=== PATIENT | female | born 1965 | race Caucasian/White ===

== ENCOUNTER 2020-02-05 16:20 | Outpatient (REF) | payer OTHER, SELFPAY | END 2020-02-05 16:21 | disposition home or self-care (01) | LOC: HO.LNP 16:20 | PROVIDERS: Visit Provider Family Medicine | DX: Z20.828 Contact with and (suspected) exposure to other viral communicable diseases (principal) | CPT/HCPCS: U0003 ==

== ENCOUNTER → 2020-02-10 15:35 | Outpatient (BNVA) | payer OTHER, SELFPAY | PROVIDERS: PCP Family Medicine; Referring Provider Family Medicine; Visit Provider Internal Medicine | DX: Z76.89 Persons encountering health services in other specified circumstances (principal) ==

== ENCOUNTER → 2020-03-14 15:10 | Outpatient (BNVA) | payer OTHER, SELFPAY | PROVIDERS: PCP Family Medicine; Visit Provider Internal Medicine Cardiovascular Disease | DX: Z82.49 Family history of ischemic heart disease and other diseases of the circulatory system (principal) | CPT/HCPCS: 93005 ==

== ENCOUNTER 2020-04-11 | Outpatient (REF) | payer OTHER, SELFPAY | END 2020-04-11 00:01 | disposition home or self-care (01) | LOC: HO.WFDLNP | PROVIDERS: Visit Provider Family Medicine | DX: Z13.89 Encounter for screening for other disorder (principal) ==

== ENCOUNTER 2020-04-12 15:31 | Outpatient (REF) | payer OTHER, SELFPAY | END 2020-04-12 15:32 | disposition home or self-care (01) | LOC: HO.LNP 15:31 | PROVIDERS: Visit Provider Family Medicine | DX: R30.0 Dysuria (principal); Z20.822 Contact with and (suspected) exposure to COVID-19 | CPT/HCPCS: 87086 ==

== ENCOUNTER 2020-05-04 | Outpatient (REF) | payer OTHER, SELFPAY | END 2020-05-04 00:01 | disposition home or self-care (01) | LOC: HO.LNP | PROVIDERS: Visit Provider Family Medicine | DX: L02.214 Cutaneous abscess of groin (principal) | CPT/HCPCS: 87071; 87205 ==

== ENCOUNTER → 2020-05-25 16:04 | Outpatient (BNVA) | payer OTHER, SELFPAY | PROVIDERS: PCP Family Medicine; Visit Provider Surgery ==

== ENCOUNTER 2020-06-21 09:39 | Outpatient (REF) | payer OTHER, SELFPAY ==
[2020-06-21 10:40] LABS: MANUAL DIFF FLAG NO
[2020-06-21 10:44] LABS: Basophils Percent Auto 0.5 % (0-2); Eosinophils Percent Auto 0.4 % (0-4); Hematocrit 40.6 % (37-47); Hemoglobin 12.7 g/dl (12.0-16.0); Imm Gran Abs Auto 0.03 X10*3/uL (0.00-0.03); Imm Gran Pct Auto 0.4 % (0.0-0.4); Lymphocytes Absolute Auto 2.2 X10*3/uL (1.2-4.9); Mean Corpuscular HGB Conc 31.3 g/dl (31.0-35.0); Mean Corpuscular Hemoglobin 28.7 pg (27.0-33.0); Mean Corpuscular Volume 91.6 fL (80-98); Monocytes Absolute Auto 0.6 X10*3/uL (0.1-1.2); Monocytes Percent Auto 7.7 % (2-11); Neutrophils Absolute Auto 4.9 X10*3/uL (2.0-8.3); Platelet Count 286 X10*3/uL (160-400); Red Blood Count 4.43 X10*6/uL (4.20-5.50); Red Cell Distribution Width 13.6 % (11.0-16.0); White Blood Count 7.8 X10*3/uL (4.8-10.8)
[2020-06-21 12:43] LABS: Alanine Aminotransferase 22 U/L (0-31); Alkaline Phosphatase 118 U/L (39-117); Anion Gap 13 (12-20); Aspartate Amino Transferase 22 U/L (5-31); Bilirubin Total 0.8 mg/dL (0.0-1.0); Blood Urea Nitrogen 14 mg/dL (9-16); Calcium 8.7 mg/dL (8.4-10.2); Carbon Dioxide 29 mmol/L (22-29); Chloride 105 mmol/L (96-108); Cholesterol 183 mg/dL; Estimated Glomerular Filt Rate > 60; Glucose Fasting 106 mg/dL (60-99); HDL Cholesterol 40 mg/dL; LDL Cholesterol Calculated 123 mg/dl; Potassium 4.6 mmol/L (3.3-5.1); Sodium 142 mmol/L (135-145); Total Protein 6.4 g/dL (6.5-8.0); Triglycerides 100 mg/dL
[2020-06-21 12:44] LABS: TSH reflex Free T4 2.35 uIU/mL (0.32-4.0)
== END 2020-06-21 09:40 | disposition home or self-care (01) ==
LOC: HO.WFDLDS 09:39
PROVIDERS: Visit Provider Family Medicine
DX: Z00.00 Encounter for general adult medical examination without abnormal findings (principal)
CPT/HCPCS: 36415; 80053; 80061; 84443; 85025

== ENCOUNTER → 2020-08-01 15:55 | Outpatient (BNVA) | payer OTHER, SELFPAY | PROVIDERS: PCP Family Medicine; Visit Provider Internal Medicine ==

== ENCOUNTER 2020-12-07 10:52 | Outpatient (REF) | payer OTHER, SELFPAY ==
[2020-12-07 13:43] LABS: Basophils Percent Auto 0.1 % (0-2); Hematocrit 41.5 % (37-47); Hemoglobin 13.3 g/dl (12.0-16.0); Imm Gran Abs Auto 0.05 X10*3/uL (0.00-0.03); Imm Gran Pct Auto 0.6 % (0.0-0.4); Lymphocytes Absolute Auto 0.6 X10*3/uL (1.2-4.9); Lymphocytes Percent Auto 6.8 % (20-40); MANUAL DIFF FLAG SCAN; Mean Corpuscular Hemoglobin 29.3 pg (27.0-33.0); Mean Corpuscular Volume 91.4 fL (80-98); Mean Platelet Volume 11.9 fL (9.4-12.3); Monocytes Absolute Auto 0.1 X10*3/uL (0.1-1.2); Monocytes Percent Auto 1.2 % (2-11); Neutrophils Absolute Auto 7.6 X10*3/uL (2.0-8.3); Neutrophils Percent Auto 91.3 % (45-73); Platelet Count 288 X10*3/uL (160-400); Red Blood Count 4.54 X10*6/uL (4.20-5.50); Red Cell Distribution Width 13.3 % (11.0-16.0); SCAN SMEAR FLAG 1; White Blood Count 8.3 X10*3/uL (4.8-10.8)
[2020-12-07 13:52] LABS: Estimated Average Glucose 108 mg/dL; Hemoglobin A1c % 5.4 %
[2020-12-07 14:09] LABS: SLIDE REVIEW VERIFIED
[2020-12-07 14:13] LABS: Glucose Fasting 131 mg/dL (60-99)
== END 2020-12-07 10:53 | disposition home or self-care (01) ==
LOC: HO.10HDL 10:52
PROVIDERS: Visit Provider Otolaryngology
DX: L50.9 Urticaria, unspecified (principal); E16.2 Hypoglycemia, unspecified
CPT/HCPCS: 36415; 82947; 83036; 85025

== ENCOUNTER 2021-01-04 10:02 | Outpatient (REF) | payer OTHER, SELFPAY ==
[2021-01-04 14:46] LABS: Estimated Average Glucose 108 mg/dL; Hemoglobin A1c % 5.4 %
[2021-01-04 14:53] LABS: Alanine Aminotransferase 19 U/L (0-31); Albumin Level 4.1 g/dL (3.5-5.0); Alkaline Phosphatase 92 U/L (39-117); Anion Gap 14 (12-20); Aspartate Amino Transferase 13 U/L (5-31); Bilirubin Total 0.7 mg/dL (0.0-1.0); Blood Urea Nitrogen 21 mg/dL (9-16); Calcium 9.1 mg/dL (8.4-10.2); Carbon Dioxide 28 mmol/L (22-29); Chloride 107 mmol/L (96-108); Estimated Glomerular Filt Rate 47; Glucose Fasting 100 mg/dL (60-99); Potassium 4.4 mmol/L (3.3-5.1); Sodium 145 mmol/L (135-145); Total Protein 6.4 g/dL (6.5-8.0)
== END 2021-01-04 10:03 | disposition home or self-care (01) ==
LOC: HO.WFDLDS 10:02
PROVIDERS: Visit Provider Family Medicine
DX: Z00.00 Encounter for general adult medical examination without abnormal findings (principal); R73.01 Impaired fasting glucose; R07.89 Other chest pain; M54.9 Dorsalgia, unspecified; E66.01 Morbid (severe) obesity due to excess calories
CPT/HCPCS: 36415; 80053; 83036

== ENCOUNTER 2021-01-09 08:34 | Outpatient (REF) | payer OTHER, SELFPAY ==
--- NOTE | ~2021-01-09 | MM_ITS ---
EXAMINATION: MM SCREENING DIGITAL BREAST TOMOSYNTHESIS, BILATERAL CLINICAL INFORMATION: Screening. Asymptomatic. The lifetime risk of breast cancer based on the Tyrer-Cuzick Model is 19%. COMPARISON: Outside mammography: 01/08/2020, 12/25/2017 ([facility]). TECHNIQUE: Digital breast tomosynthesis is performed in both the craniocaudal and mediolateral oblique views along with computer-aided detection (CAD). Synthesized 2D images are generated from the tomosynthesis. FINDINGS: The breasts are almost entirely fatty (ACR BI-RADS breast composition Category a). There are no significant masses, abnormal calcifications, or other abnormalities. Stromal markings are similar to prior study. No developing density. There is no interval mass or architectural abnormality. No abnormal calcifications. The axilla and skin contours are unremarkable. Low left axillary tail node on MLO view is stable. No significant changes. MM/MM tomosynthesis screening BI IMPRESSION: No mammographic evidence of malignancy. ASSESSMENT: BI-RADS 2: Benign RECOMMENDATION: Routine annual mammography screening. This patient's information was entered into a reminder system with a target due date for their next mammogram.
== END 2021-01-09 08:35 | disposition home or self-care (01) ==
LOC: HO.MAMMO 08:34
PROVIDERS: PCP Family Medicine; Visit Provider Family Medicine
DX: Z12.31 Encounter for screening mammogram for malignant neoplasm of breast (principal)
CPT/HCPCS: 77063; 77067

== ENCOUNTER → 2021-01-20 11:00 | Outpatient (REF) | payer OTHER, SELFPAY ==
--- NOTE | 2021-01-20 11:04 | CA_ITS ---
Acquisition Time: 2021-01-20 11:23:57 Total Exercise Time: 00:02:14 Test Indications: CP Medications: SEE CHART Protocol: ARCENIO Max HR: 171 BPM 104% of Pred: 164 BPM Max BP: 168/082 mmHG Max Work Load: 4.6 METS Exercise stress test with exercise 2 min 14 sec of Arcenio protocol, with moderate shortness of breath, no chest discomfort, with isolated PACs, atrial cuplets, 2-4 beat atrial runs, with normotensive response to exercise, without EKG changes meeting criteria for ischemia at achieved workload. Exercise goal was 5 min which she was unable to acheive. Echo images obtained by tech at rest and immediately post peak exercise. Definity contrast used. Test reviewed with Dr Painter. Referred By: Sandor Llamas Overread By: NIKITA NUÑEZ
== END ==
LOC: HO.CARD 11:00
PROVIDERS: Visit Provider Family Medicine
DX: R07.89 Other chest pain (principal)
CPT/HCPCS: 93350; Q9957

== ENCOUNTER 2021-01-27 11:26 | Outpatient (REF) | payer OTHER, SELFPAY ==
[2021-01-27 13:55] LABS: MANUAL DIFF FLAG NO
[2021-01-27 13:59] LABS: Basophils Percent Auto 0.1 % (0-2); Eosinophils Absolute Auto 0.1 X10*3/uL (0.0-0.4); Eosinophils Percent Auto 0.5 % (0-4); Hematocrit 40.2 % (37-47); Hemoglobin 12.8 g/dl (12.0-16.0); Imm Gran Abs Auto 0.03 X10*3/uL (0.00-0.03); Imm Gran Pct Auto 0.3 % (0.0-0.4); Lymphocytes Absolute Auto 1.6 X10*3/uL (1.2-4.9); Lymphocytes Percent Auto 16.8 % (20-40); Mean Corpuscular HGB Conc 31.8 g/dl (31.0-35.0); Mean Corpuscular Hemoglobin 29.1 pg (27.0-33.0); Mean Corpuscular Volume 91.4 fL (80-98); Mean Platelet Volume 11.6 fL (9.4-12.3); Monocytes Absolute Auto 0.6 X10*3/uL (0.1-1.2); Monocytes Percent Auto 5.9 % (2-11); Neutrophils Absolute Auto 7.2 X10*3/uL (2.0-8.3); Neutrophils Percent Auto 76.4 % (45-73); Platelet Count 283 X10*3/uL (160-400); Red Cell Distribution Width 13.6 % (11.0-16.0); White Blood Count 9.4 X10*3/uL (4.8-10.8)
[2021-01-27 15:04] LABS: Erythrocyte Sedimentation Rate 17 MM/HR (0-20)
[2021-01-28 13:32] LABS: CRP High Sensitivity >10.0 mg/L
[2021-01-30 15:26] LABS: Anti Nuclear Antibody Pattern Nuclear, Homogeneous; Anti Nuclear Antibody Screen POSITIVE (NEGATIVE); Anti Nuclear Antibody Titer 1:40 titer
== END 2021-01-27 11:27 | disposition home or self-care (01) ==
LOC: HO.WFDLDS 11:26
PROVIDERS: Visit Provider Family Medicine
DX: Z00.00 Encounter for general adult medical examination without abnormal findings (principal); L50.9 Urticaria, unspecified
CPT/HCPCS: 36415; 85025; 85652; 86038; 86039; 86141

== ENCOUNTER → 2021-03-09 15:02 | Outpatient (REF) | payer OTHER, SELFPAY ==
--- NOTE | 2021-03-09 15:05 | CA_ITS ---
Transthoracic Echocardiogram Patient (Last, First, Middle): Ellen Zhu E Gender: Female Date of : 1965 Age: 56 Procedure Date: 03/09/2021 Procedure Type: Transthoracic Echocardiogram Location: OP Height: 170.18 cm Weight: 158.31 kg BSA: 2.56 m2 Heart Rate: bpm BP: 127 / 70 mmHg Chief Of Pediatric Urology: VINCENT Referring MD: Obed De La Cruz MD Symptoms: I25.3 - Aneurysm of heart Study Quality: Fair/Contrast Conclusions: - Normal left ventricular size and systolic function. Apical diverticulum and small aneurysm noted. Findings Procedure Information Contrast agent, definity, is being given per protocol without apparent complications. Left Ventricle Normal left ventricular size and systolic function. There is mildly increased left ventricular wall thickness. The visually estimated ejection fraction is between 55-60%. Diastolic function is normal for age. Right Ventricle Normal right ventricular cavity size and systolic function. Atria The left atrium is normal in size. Aortic Valve Normal aortic valve structure and function. There is mild aortic valve stenosis. There is trace (trivial) aortic valve regurgitation. Mitral Valve Normal mitral valve structure and function. There is no mitral valve regurgitation. There is no mitral valve stenosis. Pulmonic Valve The pulmonic valve is likely normal. Tricuspid Valve Normal tricuspid valve structure. There is no tricuspid valve regurgitation. Normal right atrial pressure. There is no evidence of pulmonary hypertension. Great Vessels All visible segments of the aorta are normal in size. The visualized portions of the pulmonary artery and branches are normal. Venous The inferior vena cava is normal in size and collapses greater than 50% with inspiration. Pericardium/Pleural There is no evidence of pericardial effusion. Prior Study Comparison No prior study available for comparison. Measurements 2D Linear Measurements IVSd: 1.29 0.6-0.9/0.6-1.0 cm LVIDd: 4.39 3.9-5.3/4.2-5.9 cm LVIDd Index: 1.71 2.4-3.2/2.2-3.1 cm/m2 LVIDs: 3.27 2.0-3.6 cm LVPWd: 1.07 0.7-1.1 cm Ao Root: 2.90 2.1-3.5 cm LA Diam: 3.80 2.7-3.8/3.0-4.0 cm LAIDs Index: 1.48 1.5-2.3 cm/m2 LV Mass: 231.86 67-162/88-224 g LV Mass Index: 90.57 43-95/49-115 g/m2 LVOT Diam: 2.00 3.0+(-)1.3 cm 2D Systolic Function EF 4C: 58.60 >55% EF 2C: 52.00 >55% EF BiP: 56.20 >55% Mitral Valve MV Pk E: 1.33 MV PK A: 1.24 MV Decel Time: 163.00 E/A: 1.10 E'Lateral: 9.03 E'Medial: 9.68 E/E' Med: 13.70 E/E' Lat: 14.70 PHT: 48.00 MVA PHT: 4.58 Decel [place]: 8.15 Aortic Valve AoV Pk [place]: 2.21 AoV Mn [place]: 1.56 AoV VTI: 0.47 AoV Pk Grad: 20.00 Aov Mn Grad: 11.00 PRIYA Cont.VTI: 1.88 AI Pk [place]: 3.53 AI [place]: 1.63 LVOT LVOT Pk [place]: 1.13 LVOT Mn [place]: 0.84 LVOT VTI: 0.28 LVOT Pk Grad: 5.00 LVOT Mn Grad: 3.00 LVOT Diam: 2.00 LVOT Area: 3.14 Diastolic Function MV Pk E: 1.33 MV Pk A: 1.24 E/A: 1.10 E'Medial: 9.68 E/E' Med: 13.70 E' Laterial: 9.03 E/E' Lat: 14.70 Right Ventricle TAPSE (mm): 2.43 TVS' [place]: 11.60 Tricuspid Valve TR Pk [place]: 2.09 TR Pk Grad: 17.00 RA Press: 3.00 RVSP: 20.00 Great Vessels Aorta Ao Root-2D: 2.90 2.0-3.7 cm Ao Asc: 2.70 2.1-3.4 cm Ao Arch: 2.30 Updated in Other Vendor System with Status of Final Obed De La Cruz MD electronically signed on 03/12/2021 4:15:51 PM with status of Final
== END ==
LOC: HO.CARD 15:02
PROVIDERS: PCP Family Medicine; Visit Provider Internal Medicine Cardiovascular Disease
DX: I25.3 Aneurysm of heart (principal)
CPT/HCPCS: 93306; Q9957

== ENCOUNTER → 2021-03-15 15:12 | Outpatient (BNVA) | payer OTHER, SELFPAY | PROVIDERS: PCP Family Medicine; Referring Provider Family Medicine; Visit Provider Internal Medicine Cardiovascular Disease ==

== ENCOUNTER 2021-10-04 08:00 | Outpatient (RCR) | payer OTHER, SELFPAY | END 2021-10-19 15:18 | disposition home or self-care (01) | LOC: HO.PTWFD 08:00 | PROVIDERS: PCP Family Medicine; Visit Provider Family Medicine | DX: M54.9 Dorsalgia, unspecified (principal) | CPT/HCPCS: 97110; 97140; 97162; 97535 ==

== ENCOUNTER 2022-02-27 08:32 | Outpatient (REF) | payer OTHER, SELFPAY ==
--- NOTE | ~2022-02-27 | MM_ITS ---
EXAMINATION: MM SCREENING DIGITAL BREAST TOMOSYNTHESIS, BILATERAL CLINICAL INFORMATION: Screening. Asymptomatic. The lifetime risk of breast cancer based on the Tyrer-Cuzick Model is 21%. COMPARISON: Mammography: 01/09/2021, 01/08/2020, 12/25/2017 TECHNIQUE: Digital breast tomosynthesis is performed in both the craniocaudal and mediolateral oblique views along with computer-aided detection (CAD). Synthesized 2D images are generated from the tomosynthesis. FINDINGS: The breasts are almost entirely fatty (ACR BI-RADS breast composition Category a). Background stromal markings are similar to prior studies and there is no architectural abnormality or developing density. There are no significant masses, abnormal calcifications, or other abnormalities. The axilla and skin contours are unremarkable. MM/MM tomosynthesis screening BI IMPRESSION: No mammographic evidence of malignancy. ASSESSMENT: BI-RADS 1: Negative RECOMMENDATION: Routine annual mammography screening. This patient's information was entered into a reminder system with a target due date for their next mammogram.
== END 2022-02-27 08:33 | disposition home or self-care (01) ==
LOC: HO.MAMMO 08:32
PROVIDERS: Absent Provider Student in an Organized Health Care Education/Training Program; PCP Family Medicine; Visit Provider Family Medicine
DX: Z12.31 Encounter for screening mammogram for malignant neoplasm of breast (principal)
CPT/HCPCS: 77063; 77067

== ENCOUNTER → 2022-03-12 11:21 | Outpatient (BNVA) | payer OTHER, SELFPAY | PROVIDERS: PCP Family Medicine; Referring Provider Family Medicine; Visit Provider Internal Medicine Cardiovascular Disease | DX: I25.3 Aneurysm of heart (principal); R06.09 Other forms of dyspnea; Q42.8 Congenital absence, atresia and stenosis of other parts of large intestine | CPT/HCPCS: 93005 ==

== ENCOUNTER → 2022-03-16 13:14 | Outpatient (REF) | payer OTHER, SELFPAY ==
--- NOTE | ~2022-03-16 | XR_ITS ---
EXAMINATION: XR KNEE, LEFT XR KNEE, RIGHT CLINICAL INFORMATION: Knee pain COMPARISON: None TECHNIQUE: 4 views of each knee, including AP upright view. FINDINGS: Left knee: No fracture or subluxation. Mild medial compartment joint space narrowing. Tricompartmental marginal osteophytes. No joint effusion. Diffuse soft tissue swelling. Right knee: No acute fracture or subluxation. Mild medial compartment joint space narrowing. Tricompartmental marginal osteophytes. No joint effusion. Mild diffuse soft tissue swelling. XR/XR knee LT 4V IMPRESSION: No acute fracture or malalignment. Mild tricompartmental degenerative changes of both knees.
--- NOTE | ~2022-03-16 | XR_ITS ---
EXAMINATION: XR KNEE, LEFT XR KNEE, RIGHT CLINICAL INFORMATION: Knee pain COMPARISON: None TECHNIQUE: 4 views of each knee, including AP upright view. FINDINGS: Left knee: No fracture or subluxation. Mild medial compartment joint space narrowing. Tricompartmental marginal osteophytes. No joint effusion. Diffuse soft tissue swelling. Right knee: No acute fracture or subluxation. Mild medial compartment joint space narrowing. Tricompartmental marginal osteophytes. No joint effusion. Mild diffuse soft tissue swelling. XR/XR knee RT 4V IMPRESSION: No acute fracture or malalignment. Mild tricompartmental degenerative changes of both knees.
--- NOTE | 2022-03-16 13:16 | CA_ITS ---
Transthoracic Echocardiogram Patient (Last, First, Middle): Ellen Zhu E Gender: Female Date of : 1965 Age: 57 Procedure Date: 03/16/2022 Procedure Type: Transthoracic Echocardiogram Location: OP Height: 170.18 cm Weight: 163.75 kg BSA: 2.60 m2 Heart Rate: bpm BP: 124 / 80 mmHg Board Catcher: Referring MD: Obed De La Cruz MD Symptoms: I25.3 - Aneurysm of heart Study Quality: Fair ECG Rhythm: Sinus Conclusions: - The left ventricular systolic function is low normal. The calculated ejection fraction is 53% by biplane method. - Small outpouching at the apex/apical septum with some contractility; possibly diverticulum. Less likely aneurysm. - There is mild aortic valve stenosis. - Consider cMRI. Findings Procedure Information Contrast agent, definity, is being given per protocol without apparent complications. Left Ventricle Normal left ventricular cavity size. There is mildly increased left ventricular wall thickness. The left ventricular systolic function is low normal. The calculated ejection fraction is 53% by biplane method. Diastolic function is normal for age. Small outpouching at the apex/apical septum with some contractility; possibly diverticulum. Less likely aneurysm. Right Ventricle Normal right ventricular cavity size and systolic function. Atria Both atria are normal in size. Aortic Valve The aortic valve was not well visualized. There is mild aortic valve stenosis. There is trace (trivial) aortic valve regurgitation. Mitral Valve The mitral valve appears normal. There is no mitral valve regurgitation. There is no mitral valve stenosis. Pulmonic Valve The pulmonic valve is likely normal. Tricuspid Valve There is trace tricuspid valve regurgitation. There is no evidence of pulmonary hypertension. Great Vessels The aortic annulus, sinuses of valsalva, and asc aorta are normal in size. Venous The inferior vena cava is normal in size and collapses greater than 50% with inspiration. Prior Study Comparison Changes noted compared to prior study dated: 03/09/2021. Mild aortic stenosis noted. Measurements 2D Linear Measurements IVSd: 1.26 0.6-0.9/0.6-1.0 cm LVIDd: 4.43 3.9-5.3/4.2-5.9 cm LVIDd Index: 1.70 2.4-3.2/2.2-3.1 cm/m2 LVIDs: 2.78 2.0-3.6 cm LVPWd: 1.22 0.7-1.1 cm Ao Root: 2.60 2.1-3.5 cm LA Diam: 3.80 2.7-3.8/3.0-4.0 cm LAIDs Index: 1.46 1.5-2.3 cm/m2 LV Mass: 252.72 67-162/88-224 g LV Mass Index: 97.20 43-95/49-115 g/m2 LVOT Diam: 2.00 3.0+(-)1.3 cm 2D Systolic Function EF 4C: 54.80 >55% EF 2C: 53.20 >55% EF BiP: 52.60 >55% Mitral Valve MV Pk E: 1.44 MV Decel Time: 183.00 E'Lateral: 14.60 E'Medial: 14.50 E/E' Med: 9.90 E/E' Lat: 9.90 PHT: 54.00 MVA PHT: 4.07 Decel [place]: 7.85 Aortic Valve AoV Pk [place]: 2.18 AoV Mn [place]: 1.52 AoV VTI: 0.45 AoV Pk Grad: 19.00 Aov Mn Grad: 11.00 PRIYA Cont.VTI: 1.33 LVOT LVOT Pk [place]: 0.88 LVOT Mn [place]: 0.61 LVOT VTI: 0.19 LVOT Pk Grad: 3.00 LVOT Mn Grad: 2.00 LVOT Diam: 2.00 LVOT Area: 3.14 Diastolic Function MV Pk E: 1.44 E'Medial: 14.50 E/E' Med: 9.90 E' Laterial: 14.60 E/E' Lat: 9.90 Right Ventricle TAPSE (mm): 29.00 Tricuspid Valve TR Pk [place]: 2.26 TR Pk Grad: 20.00 RA Press: 3.00 RVSP: 23.00 Great Vessels Aorta Ao Root-2D: 2.60 2.0-3.7 cm Ao Asc: 3.00 2.1-3.4 cm Pulmonary Valve PV Pk [place]: 1.10 Peak PV Grad: 5.00 Updated in Other Vendor System with Status of Final Poli Painter MD electronically signed on 03/18/2022 11:07:21 AM with status of Final
== END ==
LOC: HO.CARD 13:14
PROVIDERS: PCP Family Medicine; Visit Provider Internal Medicine Cardiovascular Disease
DX: I25.3 Aneurysm of heart (principal)
CPT/HCPCS: 73564; 93306; Q9957

== ENCOUNTER → 2022-03-29 08:00 | Outpatient (REF) | payer OTHER, SELFPAY ==
--- NOTE | ~2022-03-29 | NM_ITS ---
Exercise Myocardial perfusion study Indication: Shortness of breath evaluate for myocardial ischemia Technique: The patient was brought in for an exercise perfusion study on 03/29/2022. Patient performed exercise as per Wilner protocol and was injected 45 mCi of sestamibi was given intravenously one target HR was achieved. Images were obtained using the SPECT gamma camera interlaced with the gating device. Images were obtained in supine position. Resting perfusion study was performed on 03/30/2022. Patient was administered 45 mCi of sestamibi intravenously at rest. Images were then obtained in supine position. Images obtained with and without CT attenuation. Total DLP 162 mGy-cm. Images were processed with the software and compared side to side in short axis, horizontal long axis and vertical long axis views. Findings: The stress perfusion study showed non attenuated images show minimally reduced uptake diffuse thinning of the anterior wall as well as reduced uptake in the basal inferior wall of the LV myocardium. Attenuation corrected images show normal uptake of radiotracer in all segments of LV myocardium. The gated study shows normal LV systolic function with calculated LVEF of 56%. LV cavity is normal in size. The gated study shows normal systolic wall thickening and contraction of all segments. There is no transient ischemic dilation. Resting study shows suboptimal imaging due to subdiaphragmatic uptake. Non attenuated images show no changes compared to stress perfusion study. Gating at rest reveals normal systolic wall motion with ejection fraction at 56%. The findings are consistent with normal myocardial perfusion. NM/NM cardiolite stress test Impression: 1. Normal myocardial perfusion 2. Gated LVEF is 56% 3. Transient ischemic dilatation not present Stress EKG is negative for ischemia
--- NOTE | 2022-03-29 08:04 | CA_ITS ---
Acquisition Time: 2022-03-29 08:13:19 Total Exercise Time: 00:05:00 Test Indications: abn ekg Medications: see chart Protocol: MOD ARCENIO Max HR: 160 BPM 98% of Pred: 162 BPM Max BP: 148/068 mmHG Max Work Load: 3.4 METS Exercise stress test with exercise 5 min of modified Arcenio protocol, achieving 97% MPHR, 3.4 METs, with moderate shortness of breath, no chest discomfort, with isolated PAC and PVC, atrial tachycardia not excluded ( vs sinus tach), with normotensive response to exercise, without EKG changes meeting criteira for ischemia. Nuclear images pending. Test reviewed with Dr Young Referred By: Obed De La Cruz Overread By: NIKITA NUÑEZ
== END ==
LOC: HO.CARD 08:00
PROVIDERS: PCP Family Medicine; Visit Provider Internal Medicine Cardiovascular Disease
DX: R06.09 Other forms of dyspnea (principal)
CPT/HCPCS: 78452; 93017; A9500; J0280; J2785

== ENCOUNTER 2022-04-11 11:01 | Outpatient (REF) | payer OTHER, SELFPAY ==
--- NOTE | ~2022-04-11 | XR_ITS ---
EXAMINATION: XR KNEE AP STANDING CLINICAL INFORMATION: Pain in the right knee. COMPARISON: 03/16/2022. TECHNIQUE: AP bilateral standing view of the knees was obtained. FINDINGS: Mild medial compartment osteoarthritis is evident in both knees, left greater than right, characterized by joint space narrowing and marginal osteophytes. No acute fracture or malalignment. Mild soft tissue swelling. Bone mineralization is normal. XR/XR knee standing BI IMPRESSION: Mild medial compartment osteoarthritis in both knees, left greater than right.
== END 2022-04-11 11:02 | disposition home or self-care (01) ==
LOC: HO.HOSX 11:01
PROVIDERS: Visit Provider Physician Assistant
DX: M17.0 Bilateral primary osteoarthritis of knee (principal)
CPT/HCPCS: 73565

== ENCOUNTER → 2022-04-12 07:43 | Outpatient (REF) | payer OTHER, SELFPAY ==
--- NOTE | 2022-04-12 07:49 | HM_ITS ---
* Total monitoring time 3 days. * Underlying rhythm is sinus. Average ventricular rate 98/Min. Range 75 to 134/Min. * Frequent supraventricular ectopy. [place] of 6%. Short runs noted. * Rare ventricular ectopy. * No significant pauses or AV blocks. * No patient marker or diary. MTDD
== END ==
LOC: HO.CARD 07:43
PROVIDERS: PCP Family Medicine; Visit Provider Nurse Practitioner Family
DX: R00.0 Tachycardia, unspecified (principal)
CPT/HCPCS: 93242

== ENCOUNTER 2022-04-16 08:49 | Outpatient (REF) | payer OTHER, SELFPAY ==
--- NOTE | ~2022-04-16 | US_ITS ---
EXAMINATION: US LOWER EXTREMITY VENOUS (REFLUX EXAM), BILATERAL CLINICAL INDICATION: Chronic venous insufficiency with lower extremity varicose veins COMPARISON: None. TECHNIQUE: Color flow triplex imaging and compression Doppler was performed to evaluate both the deep and the superficial systems bilaterally. To evaluate the superficial system, the examination was performed in the upright position. Color-flow Doppler ultrasound and compression ultrasound were utilized. In addition, maneuvers were utilized to demonstrate reflux. FINDINGS: 1. DEEP VENOUS ULTRASOUND OF THE RIGHT LOWER EXTREMITY: Common Femoral Vein: Compressible, normal respiratory variation and augmented flow. Femoral Vein: Compressible, normal color flow and augmentation. Popliteal Vein: Compressible, normal augmentation. Deep Reflux: There is no evidence of reflux in the deep system in either the common femoral vein or the popliteal vein. There is a subcutaneous cyst in the distal right thigh measuring 0.5 cm 2. SUPERFICIAL ULTRASOUND WITH DOPPLER OF RIGHT LOWER EXTREMITY: GREAT SAPHENOUS VEIN: Saphenofemoral Junction: 0.5 cm; Reflux: 0 ms Proximal Thigh: 0.7 cm; Reflux: 0 ms Mid Thigh: 0.4 cm; Reflux: 528 ms Above Knee: 0.5 cm; Reflux: 0 ms At Knee: 0.4 cm; Reflux: 0 ms Below Knee: 0.3 cm; Reflux: 0 ms Mid Calf: 0.1 cm; Reflux: 0 ms Ankle: 0.3 cm; Reflux: 0 ms DUPLICATED MEDIAL GREAT SAPHENOUS VEIN: Diameter: None Imaged Reflux: NA DUPLICATED LATERAL GREAT SAPHENOUS VEIN: Diameter: None Imaged Reflux: NA SMALL SAPHENOUS VEIN: Proximal: 0.4 cm; Reflux: 0 ms Distal: 0.3 cm; Reflux: 0 ms VEIN OF GIACOMINI: None Imaged. PERFORATORS: Location: None Imaged Size: NA Reflux: NA VARICOSITIES: Location: Proximal thigh Size: 0.4 cm Reflux: None 3. DEEP VENOUS ULTRASOUND OF THE LEFT LOWER EXTREMITY: Common Femoral Vein: Compressible, normal respiratory variation and augmented flow. Femoral Vein: Compressible, normal color flow and augmentation. Popliteal Vein: Compressible, normal augmentation. Deep Reflux: There is no evidence of reflux in the deep system in either the common femoral vein or the popliteal vein. 4. SUPERFICIAL ULTRASOUND WITH DOPPLER OF LEFT LOWER EXTREMITY: GREAT SAPHENOUS VEIN: Saphenofemoral Junction: 0.8 cm; Reflux: 3244 ms Proximal Thigh: 0.4 cm; Reflux: 0 ms Mid Thigh: 0.5 cm; Reflux: 0 ms Above Knee: 0.4 cm; Reflux: 0 ms At Knee: 0.4 cm; Reflux: 0 ms Below Knee: 0.4 cm; Reflux: 0 ms Mid Calf: 0.3 cm; Reflux: 1160 ms Ankle: 0.2 cm; Reflux: 724 ms DUPLICATED MEDIAL GREAT SAPHENOUS VEIN: Diameter: None Imaged Reflux: NA DUPLICATED LATERAL GREAT SAPHENOUS VEIN: Diameter: 0.4 cm Reflux: None SMALL SAPHENOUS VEIN: Proximal: 0.3 cm; Reflux: 0 ms Distal: 0.3 cm; Reflux: 0 ms VEIN OF GIACOMINI: None Imaged. PERFORATORS: Location: None Imaged Size: NA Reflux: NA VARICOSITIES: Location: Lateral mid thigh off the accessory saphenous vein, medial proximal and mid thigh off the great saphenous vein, medial calf off the great saphenous vein Size: 0.3 to 0.6 cm Reflux: 600 ms US/US venous duplex LE BI IMPRESSION: Right: Mild reflux in the right great saphenous vein in the mid thigh. No significant reflux in the small saphenous vein. Left: Severe reflux in the left great saphenous vein. Multiple large varicosities in the left thigh and calf as described above
== END 2022-04-16 08:50 | disposition home or self-care (01) ==
LOC: HO.US 08:49
PROVIDERS: PCP Family Medicine; Visit Provider Surgery Vascular Surgery
DX: I83.893 Varicose veins of bilateral lower extremities with other complications (principal); M17.11 Unilateral primary osteoarthritis, right knee; M17.12 Unilateral primary osteoarthritis, left knee
CPT/HCPCS: 20610; 93970; J1020; J1040

== ENCOUNTER → 2022-05-01 15:06 | Outpatient (BNVA) | payer OTHER, SELFPAY | PROVIDERS: PCP Family Medicine; Visit Provider Surgery Vascular Surgery | DX: Z13.89 Encounter for screening for other disorder (principal) ==

== ENCOUNTER 2022-06-28 07:54 | Outpatient (REF) | payer OTHER, SELFPAY ==
[2022-06-28 10:47] LABS: Appearance Urine Cloudy; Color Urine Yellow; Glucose Urine UA Negative (Negative); Leukocyte Esterase Urine Small (1+) (Negative); Nitrite Urine Negative (Negative); UMIC TRIGGER UA YES; Urine Blood Moderate (2+) (Negative); Urine Ketones Negative (Negative); Urine Protein Trace mg/dL (Neg-Trace)
[2022-06-28 10:59] LABS: Bacteria Urine 4+ (None Seen); Hyaline Casts Urine 0-2 /LPF (0-2); RBC Urine 0-2 /HPF (0-2); Squamous Epithelial Cell Urine >20 /HPF (0-2)
[2022-06-28 11:21] LABS: Alanine Aminotransferase 14 U/L (0-31); Albumin Level 3.7 g/dL (3.5-5.0); Alkaline Phosphatase 125 U/L (39-117); Anion Gap 15 (12-20); Aspartate Amino Transferase 14 U/L (5-31); Bilirubin Total 0.7 mg/dL (0.0-1.0); Blood Urea Nitrogen 18 mg/dL (9-16); Calcium 8.9 mg/dL (8.4-10.2); Carbon Dioxide 26 mmol/L (22-29); Chloride 108 mmol/L (96-108); Cholesterol 167 mg/dL; Estimated Glomerular Filt Rate 58; Glucose Fasting 99 mg/dL (60-99); HDL Cholesterol 45 mg/dL; LDL Cholesterol Calculated 109 mg/dl; Potassium 4.6 mmol/L (3.3-5.1); Sodium 144 mmol/L (135-145); Triglycerides 67 mg/dL
[2022-06-28 11:37] LABS: TSH reflex Free T4 3.51 uIU/mL (0.32-4.0)
== END 2022-06-28 07:55 | disposition home or self-care (01) ==
LOC: HO.WFDLDS 07:54
PROVIDERS: Visit Provider Family Medicine
DX: Z00.00 Encounter for general adult medical examination without abnormal findings (principal)
CPT/HCPCS: 36415; 80053; 80061; 81001; 84443

== ENCOUNTER → 2022-08-23 15:47 | Outpatient (BNVA) | payer OTHER, SELFPAY | PROVIDERS: PCP Family Medicine; Referring Provider Family Medicine; Visit Provider Nurse Practitioner Family ==

== ENCOUNTER → 2022-09-14 10:52 | Outpatient (BNVA) | payer OTHER, SELFPAY | PROVIDERS: PCP Family Medicine; Visit Provider Physician Assistant | DX: M17.0 Bilateral primary osteoarthritis of knee (principal) | CPT/HCPCS: 20610; J1040 ==

== ENCOUNTER 2022-10-31 08:47 | Outpatient (AMB) | payer OTHER, SELFPAY ==
[2022-10-31 08:52] VITALS: BMI 56.7
--- NOTE | 2022-10-31 08:52 | A.OFFVIS_ITS ---
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 Patient reports on 10/18/22 she slipped on her bathroom floor causing her to twist her knees and has been having pain ever since. Currently pain is making it difficult to walk, getting up from a sitting position and at sleep. Her left knee is worse, stating yesterday pain started radiating up her leg into her back. Finds no relief with celebrex. 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 She states she has a shooting pain in her bilateral knees which is worse in her left knee and radiates to her leg and into her back. She finds difficulty with ambulation, stair use, getting up from a sitting position and during her sleep. She also c/o her left knee giving out. She had an injection on 09/14/22 provided her good relief. She is currently taking Celebrex twice a day for her pain. [facility] Medical History Allergic rhinitis Asthma Cough Infected cyst of skin Surgical History History of laparotomy Hx of hysterectomy Hx of removal of cyst Family History Father Prostate cancer Rectal cancer Mother CVD (cardiovascular disease) Myocardial infarction HTN (hypertension) Paternal Aunt History of ovarian cancer Maternal Uncle History of lung cancer Paternal Aunt History of breast cancer History of bone cancer Paternal Uncle No problems noted. Social History Housing: Apartment Alcohol intake: current Alcohol intake frequency: holidays/special occasions only Patient Tobacco Use Status: Never used Tobacco e-Cigarette/Vaping Use: Never Used Second Hand Smoke Exposure: No service: No Current occupational status: employed Current occupational exposures/hazards: No Cognitive needs: No Hearing needs: No Vision needs: No Review of Systems Const All systems reviewed & are unremarkable except as noted in HPI and below Physical Exam Vital Signs: BMI result Body Mass Index 56.7 Extrem Other: Bilateral knees skin intact, no erythema or joint effusion. Tenderness along the medial / lateral joint line. ROM full with crepitus. Negative steinmans. No ligamentous laxity. NVI. She is significantly tender along the lateral aspect of both knees on the left she has tenderness along the hamstring which extends up into the buttock region Assessment & Plan Assessment & Plan (1) Patellofemoral arthritis: Comment: Bilateral knees Code(s): M17.10 - Unilateral primary osteoarthritis, unspecified knee Plan I did reassure her that there is no acute injury such as tendon rupture or apparent ligament damage. I feel that she has strained knee and should recover fully with activity modification and some therapy exercises. She will hold off on formal therapy at this time. She will continue to take Celebrex and Tylenol. I did give a prescription of tramadol to take at night for just 1 week. If symptoms persist or worsens for the next 2-3 weeks, patient will contact the office for a referral to physical therapy, otherwise follow-up as needed. Medications: New tramadol 50 mg PO BEDTIME 7 tabs 0RF 7 days acetaminophen 650 mg (2 x 325 mg) PO Q4-6H PRN 240 tabs 3RF fever or pain Patient Instructions: Scribed for Doirs Ruiz PA-C, by Kuldip Humphreys medical records technician, on 10/31/2022 at 8:45 AM VARGAS. Doris Shepherd PA-C, have personally reviewed and agree with the information entered by the scribe. Coding Level of Care Code Est Pt Level 3 (96074) Diagnoses Patellofemoral arthritis M17.10
== END 2022-10-31 09:26 | disposition home or self-care (01) ==
PROVIDERS: PCP Family Medicine; Visit Provider Physician Assistant
DX: M17.0 Bilateral primary osteoarthritis of knee (principal)
CPT/HCPCS: 99213

== ENCOUNTER → 2022-10-31 08:47 | Outpatient (BNVA) | payer OTHER, SELFPAY | PROVIDERS: PCP Family Medicine; Visit Provider Physician Assistant ==

== ENCOUNTER 2022-11-12 08:32 | Outpatient (AMB) | payer OTHER, SELFPAY ==
[2022-11-12 08:35] VITALS: BP 122/70; PULSE 85; O2SAT 96; BMI 54.2
--- NOTE | 2022-11-12 08:35 | MHC.PC.OV ---
Vital Signs 11/12/22 08:35 Height 5 ft 7 in Weight 346 lb BMI 54.2 BP 122/70 Blood Pressure Location Lt brachial Position Sitting Pulse 85 Pulse Source Pulse Oximeter Pulse Oximetry (%) 96 Oxygen Delivery Method Room Air Intake Visit Reasons: f/u chronic conditions Intake Note: Patient is here for follow up appointment on chronic conditions. Allergies latex Allergy (Severe, Verified 11/12/22 08:38) Rash benzonatate [Tessalon Perles] Allergy (Intermediate, Verified 11/12/22 08:38) Swelling Sulfa (Sulfonamide Antibiotics) Allergy (Intermediate, Verified 11/12/22 08:38) rash amoxicillin Allergy (Unknown, Verified 11/12/22 08:38) rash tetracycline Allergy (Unknown, Verified 11/12/22 08:38) rash Medication List - Last Reconciled 11/12/22 by Sandor Llamas MD acetaminophen 650 mg (2 x 325 mg) PO Q4-6H PRN albuterol sulfate 90 mcg/actuation (ProAir HFA) 2 puffs inhalation Q4-6H PRN 30 days aspirin 81 mg PO DAILY bupropion HCl 200 mg PO QAM celecoxib (Celebrex) 200 mg PO BID 30 days cetirizine (Zyrtec) 20 mg PO DAILY diphenhydramine HCl (Benadryl Allergy) 25 mg PO ONCE PRN famotidine 20 mg PO DAILY fluticasone propionate 110 mcg/actuation (Flovent HFA) 2 puffs PO BID fluticasone propionate 50 mcg/actuation sprays intranasal levocetirizine (Xyzal) 5 mg PO DAILY montelukast 10 mg PO DAILY omalizumab (Xolair) mg subcut pantoprazole 40 mg PO DAILY tramadol 50 mg PO BEDTIME 7 days [turmeric gummies PO] Tobacco use date assessed: 11/12/22 Dental Screening Dental Screen Date: 11/12/22 Did you have a dental visit in the last 12 months?: Yes Did you have a dental problem in the last 6 months where you did not have access to dental care?: No Was dental information given to patient?: No HPI f/u chronic conditions HPI Details 57 y/o female presents to f/u chronic conditions. She reports it has been a couple weeks since she had strained her knees. She is on celebrex and tylenol. She continues to be on her Xyzal, zyrtec and montelukast for her allergies. She reports ongoing difficulty sleeping ever since her surgery. She has trouble falling asleep and staying asleep. She also reports fatigue throughout the day. HPI Comments History of Present Illness Details Documentation assistance for Sandor Llamas MD, was provided by Nils Stanley,? Screen Printing Equipment Setter on 11/12/2022 8:40 AM EST. I, Dr. Llamas, have read, observed, and verified documentation. [facility] Medical History (Reviewed 11/12/22 @ 08:40 by Edith Wilhelm, [facility]) Allergic rhinitis Asthma Cough Infected cyst of skin Surgical History (Reviewed 11/12/22 @ 08:40 by Edith Wilhelm [facility]) History of laparotomy Hx of hysterectomy Hx of removal of cyst Family History Father Prostate cancer Rectal cancer Mother CVD (cardiovascular disease) Myocardial infarction HTN (hypertension) Paternal Aunt History of ovarian cancer Maternal Uncle History of lung cancer Paternal Aunt History of breast cancer History of bone cancer Paternal Uncle No problems noted. Social History (Reviewed 11/12/22 @ 08:40 by Edith Wilhelm, [facility]) Housing: Apartment Alcohol intake: current Alcohol intake frequency: holidays/special occasions only Patient Tobacco Use Status: Never used Tobacco e-Cigarette/Vaping Use: Never Used Second Hand Smoke Exposure: No service: No Current occupational status: employed Current occupational exposures/hazards: No Cognitive needs: No Hearing needs: No Vision needs: No Questionnaire Thrive Questionnaire Date Thrive assessed: 01/27/21 RHYS-7 AMB Questionnaire RHYS-7 Date RHYS - 7 assessed: 03/12/22 Source: Developed by Drs. Jimmy Saini, Janette Andino, Mickey Chiu and colleagues, with an educational dilcia from [employer]. Review of Systems Const Denies chills, Denies fatigue, Denies fever(s), Denies headache(s) and Denies weakness ENT Denies dizziness and Denies headache(s) Card Denies dyspnea Resp Denies cough, Denies dyspnea, Denies wheezing and Denies other (shortness of breath) Musc Denies numbness and Denies tingling Neuro Denies dizziness, Denies headache(s), Denies numbness, Denies tingling and Denies weakness Psych Denies anxiety and Denies depression Endo Denies fatigue Aller/Immun Denies wheezing Physical exam (Primary Care) Vital Signs: Last Vital Signs Pulse 85 11/12/22 08:35 BP 122/70 11/12/22 08:35 Pulse Ox 96 11/12/22 08:35 Oxygen Delivery Method Room Air 11/12/22 08:35 BMI result Body Mass Index 54.2 Tobacco/Smoking Status: Tobacco use Status Tobacco use date assessed 11/12/22 11/12/22 08:44 Patient Tobacco Use Status Never used Tobacco 11/12/22 08:37 e-Cigarette/Vaping Use Never Used 11/12/22 08:37 Thrive Assessment: Date of Thrive Assessment Date Thrive assessed 01/27/21 11/12/22 08:37 Const General: well developed; No acute distress Nutritional Appearance: well nourished Orientation/consciousness: patient oriented x3 HENMT Head: Yes normocephalic and Yes atraumatic Eyes General: appearance normal, both eyes and all related structures Pupils: Equal, round and reactive pupils present EOM: EOMs intact bilaterally Resp Effort & Inspection: normal respiratory effort Neuro General: patient oriented x3 and gait normal Cranial nerves: Yes Equal, round and reactive pupils present Psych Affect: normal affect Assessment and Plan Assessment & Plan (1) Hypersomnia: Code(s): G47.10 - Hypersomnia, unspecified Plan: Sleepiness during the day and patient is not sleeping well at night. Also morbidly obese Concern for sleep apnea Referred to Sleep Medicine (2) Allergy: Code(s): T78.40XA - Allergy, unspecified, initial encounter Plan: Fairly stable at present. No rash or hives Continue immunotherapy with allergy medicine. (3) Difficulty sleeping: Code(s): G47.9 - Sleep disorder, unspecified Plan: As above (4) Hypersomnolence: Code(s): G47.10 - Hypersomnia, unspecified Plan: As above (5) Morbid obesity: Comment: She is aware of being very obese. Has not joined any weight management program. Wants did weight on her own. Code(s): E66.01 - Morbid (severe) obesity due to excess calories Plan: Has lost about 20 lb. She notes that she has not been as hungry Encouraged her to continue weight loss but chews nutritious foods and watch portion sizes. (6) Bilateral knee pain: Code(s): M25.561 - Pain in right knee; M25.562 - Pain in left knee Plan: History patellar arthritis and inflammation. Morbidly obese though she is losing weight Recent slip and strain of muscles/tendons of bilateral knees This is improving and she is using Celebrex and Biofreeze - she can continue these If not continuing to improve, she can call me and I would refer her for physical therapy. She can also follow-up with ortho Orders: Referrals Sleep Medicine Referral G47.10 - Hypersomnia, unspecified Medications: New fluconazole (Diflucan) 150 mg PO Q3D 2 tabs 0RF Coding Level of Care Code Est Pt Level 4 (87926) Diagnoses Hypersomnia G47.10 Allergy T78.40XA Difficulty sleeping G47.9 Morbid obesity E66.01 Bilateral knee pain M25.561; M25.562
== END 2022-11-12 09:10 | disposition home or self-care (01) ==
PROVIDERS: Visit Provider Family Medicine
DX: G47.10 Hypersomnia, unspecified (principal); T78.40XA Allergy, unspecified, initial encounter; E66.01 Morbid (severe) obesity due to excess calories; Z68.43 Body mass index [BMI] 50.0-59.9, adult; G47.9 Sleep disorder, unspecified; M25.561 Pain in right knee; M25.562 Pain in left knee
CPT/HCPCS: 99214

== ENCOUNTER 2023-01-02 15:15 | Outpatient (AMB) | payer OTHER, SELFPAY ==
--- NOTE | 2023-01-02 15:21 | MHC.OFFVIS ---
Intake Vital Signs 01/02/23 15:35 Height 5 ft 7 in Weight 351 lb BMI 55.0 BP 136/72 Blood Pressure Location Rt brachial Position Sitting Respiration 19 Pulse 90 Pulse Source Pulse Oximeter Pulse Oximetry (%) 95 Oxygen Delivery Method Room Air Intake Visit Reasons: OA michael knees/ LVM Allergies latex Allergy (Severe, Verified 01/02/23 15:23) Rash benzonatate [Tessalon Perles] Allergy (Intermediate, Verified 01/02/23 15:23) Swelling Sulfa (Sulfonamide Antibiotics) Allergy (Intermediate, Verified 01/02/23 15:23) rash amoxicillin Allergy (Unknown, Verified 01/02/23 15:23) rash tetracycline Allergy (Unknown, Verified 01/02/23 15:23) rash HPI HPI Comments History of Present Illness Details Ellen is a very pleasant 57 year old female who presents to the office today for evaluation and management of her chronic bilateral knee pain. Patient reports that she has been suffering with this pain for at least 6 years. She was referred here from Orthopedics, she has received steroid injections x2 without relief of her pain. She states they have not discussed surgical intervention with her but she is not interested in surgery at this time and wishes to hold off on surgery until it is absolutely necessary. Patient has completed physical therapy about 3 years ago, since then she has been doing home exercise program but states recently it has become very painful. She has been taking Celebrex daily since July with minimal improvement of her pain, she is requesting a refill. She takes Tylenol as needed. Patient reports the pain is currently rated as 6/10, constant worse with moving, walking, getting out of bed and getting in and out of the car. Pain is described as behind the knee and behind the kneecap bilaterally. She states that her right knee is worse than left. In terms of muscle damage condition is described as aching, spasming, hot, burning, stabbing, sharp, shooting, cramping, numb and throbbing. Pain is negatively impacting patient's enjoyment of life, general activity, mood, normal work, recreational activities, relationships with people, sleeping and walking. [facility] Medical History Allergic rhinitis Asthma Cough Infected cyst of skin Surgical History History of laparotomy Hx of hysterectomy Hx of removal of cyst Family History Father Prostate cancer Rectal cancer Mother CVD (cardiovascular disease) Myocardial infarction HTN (hypertension) Paternal Aunt History of ovarian cancer Maternal Uncle History of lung cancer Paternal Aunt History of breast cancer History of bone cancer Paternal Uncle No problems noted. Social History (Reviewed 11/12/22 @ 08:40 by Edith Wilhelm [facility]) Housing: Apartment Alcohol intake: current Alcohol intake frequency: holidays/special occasions only Patient Tobacco Use Status: Never used Tobacco e-Cigarette/Vaping Use: Never Used Second Hand Smoke Exposure: No service: No Current occupational status: employed Current occupational exposures/hazards: No Cognitive needs: No Hearing needs: No Vision needs: No Review of Systems Const All systems reviewed & are unremarkable except as noted in HPI and below Physical Exam General: awake, alert, oriented. Answers questions appropriately. Fully engaged in examination. Skin: warm, dry, intact HEENT: Normocephalic. Hearing intact. Cardiac: External chest normal in appearance. Respiratory: No cough, audible wheezing or stridor. Abdomen: without gross distension. MS: No obvious swelling or deformities. Bilateral knees: full ROM, +crepitus noted Neurological: Oriented to person, place, time and situation. Thought process intact. Psychiatric: Appropriate mood and affect. Good judgment and insight. Results Reviewed Results Reviewed: 04/11/2022 AP bilateral standing view of the knees was obtained. FINDINGS: Mild medial compartment osteoarthritis is evident in both knees, left greater than right, characterized by joint space narrowing and marginal osteophytes. No acute fracture or malalignment. Mild soft tissue swelling. Bone mineralization is normal. IMPRESSION: Mild medial compartment osteoarthritis in both knees, left greater than right. Assessment & Plan Assessment & Plan (1) Right knee pain: Code(s): M25.561 - Pain in right knee Qualifiers: Chronicity: chronic Qualified Code(s): M25.561 - Pain in right knee; G89.29 - Other chronic pain (2) Left knee pain: Code(s): M25.562 - Pain in left knee Qualifiers: Chronicity: chronic Qualified Code(s): M25.562 - Pain in left knee; G89.29 - Other chronic pain Plan Ellen is a very pleasant 57 year old female who presented to the office today for evaluation management of her chronic bilateral knee pain. Patient has exhausted conservative treatment including PT, home exercise program, anti-inflammatory medication and intra-articular injections. Celebrex 200 mg p.o. b.i.d. refill sent today. Discussed options for treatment including diagnostic interventional testing, steroid injections, peripheral nerve stimulation with Sprint, RFA and more permanent neuromodulation. Informational pamphlets provided. Lengthy discussion detailing options for RFA vs Sprint PNS including diagnostic testing, post procedure instructions and expected outcomes. Patient states right knee is worse than the left, she would like to start with treatment for the right side. After discussing she has decided to proceed with Right Saphenous Nerve Sprint PNS pending positive results of Diagnostic Saphenous NB. Will schedule for US guided right diagnostic Saphenous nerve block with local anesthetic. Plan for diagnostic left ultrasound-guided saphenous nerve block 2 weeks after the right knee diagnostic injection. All questions and concerns have been answered and patient agrees with the plan. Follow up after injection, sooner if needed. Medications: Refilled celecoxib (Celebrex) 200 mg PO BID 30 days 60 caps 3RF Coding Level of Care Code New Pt Level 4 (04530) Diagnoses Chronic pain of right knee M25.561; G89.29 Chronicity: chronic Chronic pain of left knee M25.562; G89.29 Chronicity: chronic
[2023-01-02 15:35] VITALS: BP 136/72; PULSE 90; RESP 19; O2SAT 95; BMI 55.0
== END 2023-01-02 16:28 | disposition home or self-care (01) ==
PROVIDERS: PCP Family Medicine; Visit Provider Registered Nurse Emergency
DX: M25.561 Pain in right knee (principal); G89.29 Other chronic pain; M25.562 Pain in left knee
CPT/HCPCS: 99204

== ENCOUNTER → 2023-01-02 15:15 | Outpatient (BNVA) | payer OTHER, SELFPAY | PROVIDERS: PCP Family Medicine; Visit Provider Registered Nurse Emergency ==

== ENCOUNTER 2023-01-14 14:48 | Outpatient (AMB) | payer OTHER, SELFPAY ==
[2023-01-14 14:58] VITALS: BMI 55.0
--- NOTE | 2023-01-14 14:58 | MHC.OFFVIS ---
Intake Vital Signs 01/14/23 14:58 Height 5 ft 7 in Weight 351 lb BMI 55.0 Intake Visit Reasons: OV-B/L knee injection-last injection 09/14/2022 Intake Note: Ellen lino 57 year old female who presents today to repeat her injections for both of her knees. Patient reports her injections lasted her about 2 months till she slipped on her bathroom floor trying to keep herself from falling. Allergies latex Allergy (Severe, Verified 01/14/23 15:16) Rash benzonatate [Tessalon Perles] Allergy (Intermediate, Verified 01/14/23 15:16) Swelling Sulfa (Sulfonamide Antibiotics) Allergy (Intermediate, Verified 01/14/23 15:16) rash amoxicillin Allergy (Unknown, Verified 01/14/23 15:16) rash tetracycline Allergy (Unknown, Verified 01/14/23 15:16) rash HPI OV-B/L knee injection-last injection 09/14/2022 HPI Details 57-year-old female who returns to the office today for a follow-up of bilateral knee pain. She had her last injection on 09/14/22 which provided her relief for about 2 months till he slipped on her bathroom floor trying to keep herself falling. She would like to repeat the injection. [facility] Medical History Allergic rhinitis Infected cyst of skin Asthma Cough Surgical History Hx of hysterectomy Hx of removal of cyst History of laparotomy Family History Father Prostate cancer Rectal cancer Mother CVD (cardiovascular disease) Myocardial infarction HTN (hypertension) Paternal Aunt History of ovarian cancer Maternal Uncle History of lung cancer Paternal Aunt History of breast cancer History of bone cancer Paternal Uncle No problems noted. Social History Housing: Apartment Alcohol intake: current Alcohol intake frequency: holidays/special occasions only Patient Tobacco Use Status: Never used Tobacco e-Cigarette/Vaping Use: Never Used Second Hand Smoke Exposure: No service: No Current occupational status: employed Current occupational exposures/hazards: No Cognitive needs: No Hearing needs: No Vision needs: No Review of Systems Const All systems reviewed & are unremarkable except as noted in HPI and below Physical Exam Vital Signs: BMI result Body Mass Index 55.0 Extrem Other: Bilateral knees skin intact, no erythema or joint effusion. Tenderness along the medial / lateral joint line. ROM full with crepitus. Negative steinmans. No ligamentous laxity. NVI. Office Procedures Joint Injection/Drain Joint Injection/Drain Primary Site: right knee Secondary Site: left knee Prep: site was prepped using aseptic technique, ethochloride spray was applied and injection warnings given Injected: 80 mg of, DepoMedrol, with 8 mL of, 1% plain lidocaine and in the joint Approach Used: anterolateral Procedure: The patient tolerated the procedure well and there was some relief with the local anesthesia Coding 03663 - Glenohumeral/Tronchanteric Bursa/Intraarticular Procedure code (CPT) selection complete Results Reviewed Results Reviewed: 01/14/23 15:06 Lidocaine HCl 2 % MPF [Xylocaine 2 % MPF] 5 ml .ROUTE .STK-MED ONE methylPREDNISolone acetate [DEPO-MedroL] 80 mg .ROUTE .STK-MED ONE Assessment & Plan Assessment & Plan (1) Patellofemoral arthritis: Comment: Bilateral knees Code(s): M17.10 - Unilateral primary osteoarthritis, unspecified knee Plan We discussed options today which include steroid injection. They did consent to move forward with the bilateral knee injection, which was tolerated well. I recommended rest, ice and elevation and OTC anti-inflammatories PRN for discomfort. If symptoms persist or worsens over the next 6-8 weeks, patient will contact the office, otherwise follow-up as needed. Patient Instructions: Scribed for Doris Ruiz PA-C, by Kuldip Humphreys territory sales manager medical, on 01/14/2023 at 2:45 PM EST. Doris Shepherd PA-C, have personally reviewed and agree with the information entered by the scribe. Coding Level of Care Code Est Pt Level 3 (28587) Diagnoses Patellofemoral arthritis M17.10 CPT Codes Coding - Joint 7: 66091 - Glenohumeral/Tronchanteric Bursa/Intraarticular ([id number])
== END 2023-01-14 15:45 | disposition home or self-care (01) ==
PROVIDERS: PCP Family Medicine; Visit Provider Physician Assistant
DX: M17.0 Bilateral primary osteoarthritis of knee (principal)
CPT/HCPCS: 20610; 99213

== ENCOUNTER → 2023-01-14 14:48 | Outpatient (BNVA) | payer OTHER, SELFPAY | PROVIDERS: PCP Family Medicine; Visit Provider Physician Assistant | DX: M17.0 Bilateral primary osteoarthritis of knee (principal) | CPT/HCPCS: 20610; J1040 ==

== ENCOUNTER 2023-01-15 10:10 | Outpatient (AMB) | payer OTHER, SELFPAY ==
--- NOTE | 2023-01-15 10:12 | A.OFFVIS_ITS ---
Intake Vital Signs 01/15/23 10:17 Height 5 ft 7 in Weight 371 lb BMI 58.1 Pulse 81 Pulse Source Pulse Oximeter Pulse Oximetry (%) 98 Oxygen Delivery Method Room Air Intake Visit Reasons: INP Hypersomnia - LVM Intake Note: Patient presents for hypersomnia. Patient states I'm not sleeping all the way through I wake up a lot but it's because I have to pee. Allergies latex Allergy (Severe, Verified 01/15/23 10:16) Rash benzonatate [Tessalon Perles] Allergy (Intermediate, Verified 01/15/23 10:16) Swelling Sulfa (Sulfonamide Antibiotics) Allergy (Intermediate, Verified 01/15/23 10:16) rash amoxicillin Allergy (Unknown, Verified 01/15/23 10:16) rash tetracycline Allergy (Unknown, Verified 01/15/23 10:16) rash HPI HPI Comments History of Present Illness Details 57 y/o female patient presents for new i n-person visit for sleep consultation. Pt reports snoring and frequent wakes up with difficulty breathing and nocturia. She can't sleep more than 4 hrs straight, usually wakes up every hour and couple of hours. She has bad seasonal allergy and asthma and wakes up very congested with dry mouth. She has non refreshing sleep and feels tired all day. Sleep questionnaire: Have you ever been diagnosed with a sleep disorder? No. Have you ever had a sleep study in the past? No. Have you ever been treated for a sleep disorder? No. Do you take medications for a sleep disorder? Not now, but she tried melatonin 5-10 mg and it usually help. Do you snore? Yes. Do you wake up gasping at night? No. Do you have episodes of apneas? No. If yes, are they witnessed? No. Do you have episodes of nocturnal chest pain or dyspnea? No. Do you have difficulty initiating sleep? Yes. Do you have difficulty maintaining sleep? Yes. Do you wake up tired? Yes, sometimes. Do you have headaches upon awakening? No. Do you wake up with dry mouth or throat? Yes. Do you have GERD? Yes. Do you have nocturia? Yes. Do you have nocturnal leg cramps? No. Do you have symptoms of restless legs? No. Do you act out your dreams? No. Sleep hygiene questionnaire: What is your usual sleep routine? N/A Usual bedtime is at ; Usual wake up time is at . Do you take naps? No. Is your sleep environment cool, dark, and quiet? Mostly, yes. Do you exercise? Yes, tries to do. Do you take caffeine or other stimulants? Coffee in the morning. Do you use electronics in bed? What is your work schedule? 9 am to 5 pm, but it varies. Hypersomnolence questionnaire: Do you have daytime tiredness or fatigue? Yes. Do you easily fall asleep when inactive? Yes. Have you ever had episodes of sudden weakness? No. Have you ever had episodes of sudden weakness associated with strong emotions? No. PFSH Medical History Allergic rhinitis Infected cyst of skin Asthma Cough Surgical History Hx of hysterectomy Hx of removal of cyst History of laparotomy Family History Father Prostate cancer Rectal cancer Mother CVD (cardiovascular disease) Myocardial infarction HTN (hypertension) Paternal Aunt History of ovarian cancer Maternal Uncle History of lung cancer Paternal Aunt History of breast cancer History of bone cancer Paternal Uncle No problems noted. Social History Housing: Apartment Alcohol intake: current Alcohol intake frequency: holidays/special occasions only Patient Tobacco Use Status: Never used Tobacco e-Cigarette/Vaping Use: Never Used Second Hand Smoke Exposure: No service: No Current occupational status: employed Current occupational exposures/hazards: No Cognitive needs: No Hearing needs: No Vision needs: No Review of Systems Const All systems reviewed & are unremarkable except as noted in HPI and below ENT Reports Normal hearing present Neuro Reports Normal hearing present Physical Exam Vital Signs: Last Vital Signs Pulse 81 01/15/23 10:17 Pulse Ox 98 01/15/23 10:17 Oxygen Delivery Method Room Air 01/15/23 10:17 BMI result Body Mass Index 58.1 Const General: cooperative and tired appearing Nutritional Appearance: obese Orientation/consciousness: patient oriented x3 HEENT Throat: Yes other (mallampati grade 3) Neck Neck: Yes full ROM and Yes supple Resp Effort & Inspection: normal respiratory effort and able to speak in complete sentences Neuro General: patient oriented x3 and moves all extremities Cranial nerves: Yes Bilaterally intact EOM present, Yes Normal facial strength present, Yes Midline tongue present, Yes Symmetric palate elevation present, Yes Normal hearing present, Yes Ability to bilaterally rotate head present and Yes Ability to bilaterally elevate shoulders present Cognition (Neuro): normal cognition Gait exam (Neuro): Antalgic gait present Motor exam (neuro): 5/5 motor strength present throughout, Pronator motor function not present, no tremor noted and Motor abnormalities not present Psych Affect: normal affect Attitude: cooperative Assessment & Plan Assessment & Plan (1) Morbid obesity with BMI of 50.0-59.9, adult: Code(s): E66.01 - Morbid (severe) obesity due to excess calories; Z68.43 - Body mass index [BMI] 50.0-59.9, adult (2) Snoring: Code(s): R06.83 - Snoring (3) Difficulty sleeping: Code(s): G47.9 - Sleep disorder, unspecified (4) Daytime sleepiness: Code(s): R40.0 - Somnolence Plan Pt is advised to undergo in lab sleep study to assess for sleep apnea. Will f/u with pt after study to discuss results and appropriate treatment options. Sleep hygiene education provided. Advised patient to have routine sleep schedule, increase physical activity, walking 30 min daily. Wt reduction advised. Pt to call with any worsening concerns or questions. Orders: Orders RT PSG in-lab sleep study Today E66.01 - Morbid (severe) obesity due to excess calories, G47.10 - Hypersomnia, unspecified, G47.9 - Sleep disorder, unspecified, I49.1 - Atrial premature depolarization, R06.83 - Snoring, Z68.43 - Body mass index [BMI] 50.0-59.9, adult Coding Level of Care Code New Pt Level 3 (98743) Diagnoses Morbid obesity with BMI of 50.0-59.9, adult E66.01; Z68.43 Snoring R06.83 Difficulty sleeping G47.9 Daytime sleepiness R40.0
[2023-01-15 10:17] VITALS: PULSE 81; O2SAT 98; BMI 58.1
== END 2023-01-15 10:43 | disposition home or self-care (01) ==
LOC: HO.HSMC 10:10
PROVIDERS: PCP Family Medicine; Visit Provider Nurse Practitioner Family
DX: E66.01 Morbid (severe) obesity due to excess calories (principal); Z68.43 Body mass index [BMI] 50.0-59.9, adult; R06.83 Snoring; G47.9 Sleep disorder, unspecified; R40.0 Somnolence
CPT/HCPCS: 99203

== ENCOUNTER → 2023-01-15 10:10 | Outpatient (BNVA) | payer OTHER, SELFPAY | PROVIDERS: PCP Family Medicine; Visit Provider Nurse Practitioner Family ==

== ENCOUNTER → 2023-02-12 20:30 | Outpatient (REF) | payer OTHER, SELFPAY | LOC: HO.SL 20:30 | PROVIDERS: PCP Family Medicine; Visit Provider Nurse Practitioner Family | DX: G47.9 Sleep disorder, unspecified (principal); G47.10 Hypersomnia, unspecified; I49.1 Atrial premature depolarization; R06.83 Snoring; E66.01 Morbid (severe) obesity due to excess calories; Z68.43 Body mass index [BMI] 50.0-59.9, adult | CPT/HCPCS: 95810 ==

== ENCOUNTER → 2023-02-12 21:34 | Outpatient (BNV) | payer OTHER, SELFPAY | PROVIDERS: PCP Family Medicine; Visit Provider Psychiatry & Neurology Neurology | DX: G47.33 Obstructive sleep apnea (adult) (pediatric) (principal) | CPT/HCPCS: 95810 ==

== ENCOUNTER 2023-02-18 15:51 | Outpatient (AMB) | payer OTHER, SELFPAY ==
[2023-02-18 15:54] VITALS: BP 165/74; PULSE 69; RESP 12; O2SAT 97
--- NOTE | 2023-02-18 15:54 | A.OFFVIS_ITS ---
Intake Vital Signs 02/18/23 15:54 Height 5 ft 7 in BP 165/74 H Blood Pressure Location Lt radial Position Sitting Respiration 12 Pulse 69 Pulse Source Pulse Oximeter Pulse Oximetry (%) 97 Oxygen Delivery Method Room Air Intake Visit Reasons: Left Dx SNB/lvm Allergies latex Allergy (Severe, Verified 01/15/23 10:16) Rash benzonatate [Tessalon Perles] Allergy (Intermediate, Verified 01/15/23 10:16) Swelling Sulfa (Sulfonamide Antibiotics) Allergy (Intermediate, Verified 01/15/23 10:16) rash amoxicillin Allergy (Unknown, Verified 01/15/23 10:16) rash tetracycline Allergy (Unknown, Verified 01/15/23 10:16) rash HPI Left Dx SNB/lvm HPI Details 57-year-old female who presents today to the office for a left diagnostic SNB. Given the size of her neck, we will proceed with and infrapatellar saphenous nerve block today and follow up with a trial of infrapatellar saphenous nerve stimulator if she has a positive response. Denies any recent cough, cold, infection, fever or other significant changes in medical history since last office visit. [facility] Medical History Allergic rhinitis Infected cyst of skin Asthma Cough Surgical History Hx of hysterectomy Hx of removal of cyst History of laparotomy Family History Father Prostate cancer Rectal cancer Mother CVD (cardiovascular disease) Myocardial infarction HTN (hypertension) Paternal Aunt History of ovarian cancer Maternal Uncle History of lung cancer Paternal Aunt History of breast cancer History of bone cancer Paternal Uncle No problems noted. Social History Housing: Apartment Alcohol intake: current Alcohol intake frequency: holidays/special occasions only Patient Tobacco Use Status: Never used Tobacco e-Cigarette/Vaping Use: Never Used Second Hand Smoke Exposure: No service: No Current occupational status: employed Current occupational exposures/hazards: No Cognitive needs: No Hearing needs: No Vision needs: No Review of Systems Const All systems reviewed & are unremarkable except as noted in HPI and below Physical Exam Vital Signs: Last Vital Signs Pulse 69 02/18/23 15:54 Resp 12 02/18/23 15:54 BP 165/74 H 02/18/23 15:54 Pulse Ox 97 02/18/23 15:54 Oxygen Delivery Method Room Air 02/18/23 15:54 General: Appears afebrile. Alert and oriented. Mood and affect appropriate. Follows and participates in conversation appropriately. Respiratory effort is unlabored. Able to transition from sit to stand unassisted. Ambulates with bilaterally normal heel strike and toe off. Office Procedures Nerve Block Details: Left diagnostic infrapatellar saphenous nerve block, ultrasound guided After obtaining written consent, pre-procedure blood pressure and heart rate were stable and recorded in the nursing record. The patient was placed supine on the table. The medial thigh area overlying the infrapatellar saphenous region was widely prepped with chloraprep, allowed to dry and sterilely draped. Using ultrasound, the appropriate landmarks including the infrapatellar saphenous nerve was identified. A 25 gauge 1.5 in needle was advanced under sonographic guidance to the adductor canal. Aspiration was negative for heme and synovial fluid. 1cc 0.5% bupivacaine was injected around the infrapatellar saphenous nerve. The needle was removed, skin cleansed and a sterile bandage was applied. The patient tolerated the procedure well and no complications were encountered. Following the procedure the patient's vital signs and knee strength were stable. The patient was discharged home in good condition with post- procedural instructions. Time Out: Immediately prior to the procedure, the following was verbally c onfirmed that there is a signed consent form and that the correct patient, planned procedure, site and side are consistent with documentation and that necessary equipment and/or blood products are available prior to the start of the case. Complications: none EBL: <1 cc Note: An ultrasound image of the injection was taken and stored in the permanent record. 74644 - Saphenous (ultrasound guided) Procedure code (CPT) selection complete Results Reviewed Results Reviewed: No imaging is available for review. Assessment & Plan Assessment & Plan (1) Right knee pain: Code(s): M25.561 - Pain in right knee Qualifiers: Chronicity: chronic Qualified Code(s): M25.561 - Pain in right knee; G89.29 - Other chronic pain Plan Patient is status post left diagnostic infrapatellar saphenous nerve block. Patient tolerated procedure well and was discharged home in stable condition with discharge instructions. All questions were answered. We will follow-up in two weeks via telephone or in clinic to assess response to therapy. A follow-up appointment was made during today's visit. Scribed for Dr. Saldana by Clint Kennedy, lead medical technologist, on 02/18/2023. I, Dr. Saldana, have personally reviewed and agree with the information entered by the scribe. Coding Level of Care Code Procedure Only Diagnoses Chronic pain of right knee M25.561; G89.29 Chronicity: chronic CPT Codes Nerve Block - Nerve Block 10: 53231 - Saphenous ([id number])
== END 2023-02-18 16:15 | disposition home or self-care (01) ==
PROVIDERS: PCP Family Medicine; Visit Provider Internal Medicine
DX: M25.561 Pain in right knee (principal)
CPT/HCPCS: 64450; 76942

== ENCOUNTER → 2023-02-18 15:51 | Outpatient (BNVA) | payer OTHER, SELFPAY | PROVIDERS: PCP Family Medicine; Visit Provider Internal Medicine | DX: G89.29 Other chronic pain (principal); M25.561 Pain in right knee | CPT/HCPCS: 64450; J0665 ==

== ENCOUNTER 2023-03-04 09:18 | Outpatient (AMB) | payer OTHER, SELFPAY ==
--- NOTE | 2023-03-04 09:20 | MHC.OFFVIS ---
Intake Vital Signs 03/04/23 09:21 Height 5 ft 7 in Weight 335 lb BMI 52.5 BP 137/86 Blood Pressure Location Lt radial Position Sitting Respiration 12 Pulse 103 H Pulse Source Pulse Oximeter Intake Visit Reasons: Left infrapatellar SNB/lvm Allergies latex Allergy (Severe, Verified 03/04/23 09:22) Rash benzonatate [Tessalon Perles] Allergy (Intermediate, Verified 03/04/23 09:22) Swelling Sulfa (Sulfonamide Antibiotics) Allergy (Intermediate, Verified 03/04/23 09:22) rash amoxicillin Allergy (Unknown, Verified 03/04/23 09:22) rash tetracycline Allergy (Unknown, Verified 03/04/23 09:22) rash Medication List - Last Reconciled 03/04/23 by Jasmyn Vizcarra LPN acetaminophen 650 mg (2 x 325 mg) PO Q4-6H PRN albuterol sulfate 90 mcg/actuation (ProAir HFA) 2 puffs inhalation Q4-6H PRN 30 days aspirin 81 mg PO DAILY bupropion HCl 200 mg PO QAM celecoxib (Celebrex) 200 mg PO BID 30 days cetirizine (Zyrtec) 20 mg PO DAILY diphenhydramine HCl (Benadryl Allergy) 25 mg PO ONCE PRN epinephrine IM famotidine 20 mg PO DAILY fluconazole (Diflucan) 150 mg PO Q3D 2 doses fluticasone propionate 110 mcg/actuation (Flovent HFA) 2 puffs PO BID fluticasone propionate 50 mcg/actuation sprays intranasal levocetirizine (Xyzal) 5 mg PO DAILY montelukast 10 mg PO DAILY omalizumab (Xolair) mg subcut pantoprazole 40 mg PO DAILY tramadol 50 mg PO BEDTIME 7 days [turmeric gummies PO] HPI Left infrapatellar SNB/lvm HPI Details 58-year-old female who presents today to the office for a status post left infrapatellar SNB. The patient reports 90% relief following the procedure on the left side for about two days. She reports some tenderness on the posterior side of the knee. She was able to walk down the stairs which she was unable to do pre-procedure. She is taking aspirin daily. Past Procedures: 02/18/23: Left diagnostic infrapatellar saphenous nerve block, ultrasound guided: 90% relief for two days. PFSH Medical History Allergic rhinitis Infected cyst of skin Asthma Cough Surgical History Hx of hysterectomy Hx of removal of cyst History of laparotomy Family History Father Prostate cancer Rectal cancer Mother CVD (cardiovascular disease) Myocardial infarction HTN (hypertension) Paternal Aunt History of ovarian cancer Maternal Uncle History of lung cancer Paternal Aunt History of breast cancer History of bone cancer Paternal Uncle No problems noted. Social History Housing: Apartment Alcohol intake: current Alcohol intake frequency: holidays/special occasions only Patient Tobacco Use Status: Never used Tobacco e-Cigarette/Vaping Use: Never Used Second Hand Smoke Exposure: No service: No Current occupational status: employed Current occupational exposures/hazards: No Cognitive needs: No Hearing needs: No Vision needs: No Review of Systems Const All systems reviewed & are unremarkable except as noted in HPI and below Physical Exam Vital Signs: Last Vital Signs Pulse 103 H 03/04/23 09:21 Resp 12 03/04/23 09:21 BP 137/86 03/04/23 09:21 BMI result Body Mass Index 52.5 General: Appears afebrile. Alert and oriented. Mood and affect appropriate. Follows and participates in conversation appropriately. Respiratory effort is unlabored. Able to transition from sit to stand unassisted. Ambulates with bilaterally normal heel strike and toe off. Lymphedema related skin changes in the lower extremities. Results Reviewed Results Reviewed: No imaging is available for review. Assessment & Plan Assessment & Plan (1) Right knee pain: Code(s): M25.561 - Pain in right knee Qualifiers: Chronicity: chronic Qualified Code(s): M25.561 - Pain in right knee; G89.29 - Other chronic pain Plan Will place a referral for psychology clearance. Once we have received psychology clearance, we will plan for right infrapatellar saphenous nerve stimulator trial with Curonix device. The patient will receive a call from [facility] for the psychology assessment. Counseled patient regarding good hygiene of the lower extremities to prevent cellulitis and infection following the implant. Justification for interventional therapy: Patient with average pain > 8/10 Patient has exhausted conservative therapy including physical therapy and oral medications acetaminophen and NSAIDs. She is not a candidate for total knee replacement. She needs pain control to be able to exercise and lose weight prior to being eligible for a TKA. Diagnostic injection provided 90% relief. Scribed for Dr. Saldana by Clint Kennedy, medical director occupational health, on 03/04/2023. I, Dr. Saldana, have personally reviewed and agree with the information entered by the scribe. Coding Level of Care Code Est Pt Level 3 (28420) Diagnoses Chronic pain of right knee M25.561; G89.29 Chronicity: chronic
[2023-03-04 09:21] VITALS: BP 137/86; PULSE 103; RESP 12; BMI 52.5
== END 2023-03-04 09:34 | disposition home or self-care (01) ==
PROVIDERS: PCP Family Medicine; Visit Provider Internal Medicine
DX: M25.561 Pain in right knee (principal); G89.29 Other chronic pain
CPT/HCPCS: 99213

== ENCOUNTER → 2023-03-04 09:18 | Outpatient (BNVA) | payer OTHER, SELFPAY | PROVIDERS: PCP Family Medicine; Visit Provider Internal Medicine ==

== ENCOUNTER → 2023-05-28 20:30 | Outpatient (REF) | payer OTHER, SELFPAY | LOC: HO.SL 20:30 | PROVIDERS: PCP Family Medicine; Visit Provider Nurse Practitioner Family | DX: G47.33 Obstructive sleep apnea (adult) (pediatric) (principal) | CPT/HCPCS: 95811 ==

== ENCOUNTER → 2023-05-28 21:55 | Outpatient (BNV) | payer OTHER, SELFPAY | PROVIDERS: PCP Family Medicine; Visit Provider Psychiatry & Neurology Neurology | DX: G47.33 Obstructive sleep apnea (adult) (pediatric) (principal) | CPT/HCPCS: 95811 ==

== ENCOUNTER → 2023-08-01 08:49 | Outpatient (REF) | payer OTHER, SELFPAY ==
--- NOTE | 2023-08-01 08:52 | CA_ITS ---
Transthoracic Echocardiogram Patient (Last, First, Middle): Ellen Zhu E Gender: Female Date of : 1965 Age: 58 Procedure Date: 08/01/2023 Procedure Type: Transthoracic Echocardiogram Location: OP Height: 170.18 cm Weight: 154.22 kg BSA: 2.53 m2 Heart Rate: bpm BP: 126 / 68 mmHg Second Watch Sergeant: TO Referring MD: Estrellita Clay SENIOR QUALITY ENGINEERHiram Symptoms: Q24.8 - Other specified congenital malformations of heart Study Quality: Fair/Contrast ECG Rhythm: Sinus Conclusions: - The left ventricular systolic function is mildly decreased. The visually estimated ejection fraction is between 45-50%. 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 - There is mild aortic valve stenosis. Findings Procedure Information Contrast agent, definity, is being given per protocol without apparent complications. Left Ventricle Normal left ventricular cavity size. There is normal left ventricular wall thickness. The left ventricular systolic function is mildly decreased. The visually estimated ejection fraction is between 45-50%. There is no evidence of regional wall motion abnormalities. 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 Right Ventricle Normal right ventricular cavity size and systolic function. Atria Both atria are normal in size. Aortic Valve There is a normal trileaflet aortic valve. There is mild calcification of the aortic valve. There is mild aortic valve stenosis. There is trace (trivial) aortic valve regurgitation. Mitral Valve The mitral valve appears normal. There is trace mitral valve regurgitation. There is no mitral valve stenosis. Pulmonic Valve The pulmonic valve is likely normal. Tricuspid Valve There is no tricuspid valve regurgitation. Tricuspid regurgitation envelope is inadequate for calculation of right ventricular systolic pressure. Great Vessels The asc aorta is normal in size. Venous The inferior vena cava is normal in size and collapses greater than 50% with inspiration. Pericardium/Pleural There is no evidence of pericardial effusion. Prior Study Comparison Changes noted compared to prior study dated: 03/16/2022. LVEF marginally lower. Measurements 2D Linear Measurements IVSd: 1.04 0.6-0.9/0.6-1.0 cm LVIDd: 5.21 3.9-5.3/4.2-5.9 cm LVIDd Index: 2.06 2.4-3.2/2.2-3.1 cm/m2 LVIDs: 3.40 2.0-3.6 cm LVPWd: 0.82 0.7-1.1 cm LA Diam: 3.80 2.7-3.8/3.0-4.0 cm LAIDs Index: 1.50 1.5-2.3 cm/m2 LV Mass: 220.76 67-162/88-224 g LV Mass Index: 87.26 43-95/49-115 g/m2 LVOT Diam: 2.20 3.0+(-)1.3 cm 2D Systolic Function EF 4C: 42.90 >55% EF 2C: 43.20 >55% EF BiP: 43.20 >55% Mitral Valve MV VTI: 0.36 MV Pk [place]abl[place]: 1.72 MV Mn P[place]: 1.23 MV Pk Grad: 12.00 MV Mn Grad: 7.00 MV Pk E: 1.28 MV PK A: 1.39 MV Decel Time: 159.00 E/A: 0.90 E'Lateral: 10.20 E'Medial: 5.98 E/E' Med: 21.40 E/E' Lat: 12.50 PHT: 47.00 MVA PHT: 4.68 MVA Continuity: 2.57 Decel [place]: 8.03 Aortic Valve AoV Pk [place]: 2.13 AoV Mn [place]: 1.52 AoV VTI: 0.49 AoV Pk Grad: 18.00 Aov Mn Grad: 10.00 PRIYA Cont.VTI: 1.88 LVOT LVOT Pk [place]: 1.00 LVOT Mn [place]: 0.71 LVOT VTI: 0.24 LVOT Pk Grad: 4.00 LVOT Mn Grad: 2.00 LVOT Diam: 2.20 LVOT Area: 3.80 Diastolic Function MV Pk E: 1.28 MV Pk A: 1.39 E/A: 0.90 E'Medial: 5.98 E/E' Med: 21.40 E' Laterial: 10.20 E/E' Lat: 12.50 Right Ventricle TAPSE (mm): 21.90 TVS' [place]: 11.40 Tricuspid Valve RA Press: 3.00 Great Vessels Aorta Sinus of Valsalva: 2.91 2.0-3.[address] [place]: 2.27 1.7-3.4 cm Ao Asc: 3.10 2.1-3.4 cm Ao Arch: 2.50 Updated in Other Vendor System with Status of Final Poli Painter MD electronically signed on 08/02/2023 10:37:27 AM with status of Final
== END ==
LOC: HO.CARD 08:49
PROVIDERS: PCP Family Medicine; Visit Provider Nurse Practitioner Family
DX: Q24.9 Congenital malformation of heart, unspecified (principal); I35.0 Nonrheumatic aortic (valve) stenosis
CPT/HCPCS: 93306; Q9957

== ENCOUNTER → 2023-08-01 08:52 | Outpatient (BNV) | payer OTHER, SELFPAY | PROVIDERS: PCP Family Medicine; Visit Provider Internal Medicine | DX: Q24.8 Other specified congenital malformations of heart (principal); I35.2 Nonrheumatic aortic (valve) stenosis with insufficiency | CPT/HCPCS: 93303 ==

== ENCOUNTER 2023-10-23 14:47 | Outpatient (AMB) | payer OTHER, SELFPAY ==
[2023-10-23 14:50] VITALS: BP 130/70; PULSE 100; BMI 55.3
--- NOTE | 2023-10-23 14:50 | MHC.OFFVIS ---
Vital Signs 10/23/23 14:50 Height 5 ft 7 in Weight 353 lb 2.888 oz BMI 55.3 BP 130/70 Blood Pressure Location Lt radial Position Sitting Pulse 100 Pulse Source Monitor Intake Visit Reasons: 1 yr f/up r/s by usx1 Intake Note: 1 yr f/up Claims Sorter Required: No Accompanied by: Self / Same As Patient Allergies latex Allergy (Severe, Verified 03/04/23 09:22) Rash benzonatate [Tessalon Perles] Allergy (Intermediate, Verified 03/04/23 09:22) Swelling Sulfa (Sulfonamide Antibiotics) Allergy (Intermediate, Verified 03/04/23 09:22) rash amoxicillin Allergy (Unknown, Verified 03/04/23 09:22) rash tetracycline Allergy (Unknown, Verified 03/04/23 09:22) rash Medication List - Last Reconciled 10/23/23 by Obed De La Cruz MD acetaminophen 650 mg (2 x 325 mg) PO Q4-6H PRN albuterol sulfate 90 mcg/actuation (ProAir HFA) 2 puffs inhalation Q4-6H PRN 30 days aspirin 81 mg PO DAILY bupropion HCl SR 200 mg PO QAM 90 days celecoxib (Celebrex) 200 mg PO BID 30 days cetirizine (Zyrtec) 20 mg PO DAILY diphenhydramine HCl (Benadryl Allergy) 25 mg PO ONCE PRN epinephrine IM famotidine 20 mg PO DAILY fluticasone propionate 110 mcg/actuation (Flovent HFA) 2 puffs PO BID fluticasone propionate 50 mcg/actuation sprays intranasal montelukast 10 mg PO DAILY omalizumab (Xolair) mg subcut pantoprazole 40 mg PO DAILY tramadol 50 mg PO BEDTIME 7 days [turmeric gummies PO] HPI Comments Details: Pleasant 57-year-old female here for follow-up. She has strong FH of CAD. She had coronary calcium score in the past and it was zero. She had sharp chest pain lasting few seconds and was referred for stress echo. She was able to exercise for 2.5 mins and stopped due to dyspnea. She said she also had ankle pain. Stress echo did not show RWMA but showed a small apical aneurysm. 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 She was started on baby aspirin. She now returns for follow-up after a year. She recently had viral illness and had asthma exacerbation due to that. She received prednisone. She continues to get dyspnea on exertion. Denying any chest discomfort. EKG showing low voltage with poor R-wave progression and cannot rule out anterior infarct. She has not had any cardiac sounding chest discomfort in the past. 10/23/2023: She is here for follow-up. She has been doing well. No chest discomfort shortness of breath. He is trying to walk more. Repeat echocardiography has shown low normal ejection fraction with small apical diverticulum and mild aortic valve stenosis. Clinically she has no symptoms compared to previous visit. [facility] Medical History Allergic rhinitis Infected cyst of skin Asthma Cough Surgical History Hx of hysterectomy Hx of removal of cyst History of laparotomy Family History Father Prostate cancer Rectal cancer Mother CVD (cardiovascular disease) Myocardial infarction HTN (hypertension) Paternal Aunt History of ovarian cancer Maternal Uncle History of lung cancer Paternal Aunt History of breast cancer History of bone cancer Paternal Uncle No problems noted. Social History Housing: Apartment Alcohol intake: current Alcohol intake frequency: holidays/special occasions only Patient Tobacco Use Status: Never used Tobacco e-Cigarette/Vaping Use: Never Used Second Hand Smoke Exposure: No service: No Current occupational status: employed Current occupational exposures/hazards: No Cognitive needs: No Hearing needs: No Vision needs: No Review of Systems Const Denies chills, Denies fatigue, Denies fever(s), Denies frequent falls, Denies weakness, Denies weight gain and Denies weight loss ENT Denies dizziness Card Denies chest pain, Denies leg edema, Denies lightheadedness, Denies palpitations, Denies dyspnea and Denies dyspnea on exertion Resp Denies cough, Denies dyspnea and Denies dyspnea on exertion GI Denies hematochezia Musc Denies abnormal gait, Denies muscle weakness, Denies numbness, Denies radiating pain into limb and Denies tingling Neuro Denies abnormal gait, Denies dizziness, Denies frequent falls, Denies numbness, Denies tingling and Denies weakness Endo Denies fatigue and Denies palpitations Physical Exam Vital Signs: Last Vital Signs Pulse 100 10/23/23 14:50 BP 130/70 10/23/23 14:50 BMI result Body Mass Index 55.3 GENERAL APPEARANCE: in no acute distress, well developed, well nourished. NECK/THYROID: no carotid bruit, no jugular venous distention. SKIN: no suspicious lesions, warm and dry. HEART: no murmurs, regular rate and rhythm, S1, S2 normal. LUNGS: clear to auscultation bilaterally. ABDOMEN: normal, bowel sounds present, soft, nontender, nondistended. EXTREMITIES: no clubbing, cyanosis, or edema. PERIPHERAL PULSES: equal. NEUROLOGIC: nonfocal, alert and oriented. PSYCH: mood/affect full range. Office Procedures EKG Details: Sinus rhythm 100 beats per minute, normal axis, poor R-wave progression, low voltage, QTC 446 milliseconds. [id number], Complete Assessment & Plan Assessment & Plan (1) Diverticulum of left ventricle: Code(s): Q24.8 - Other specified congenital malformations of heart Category: Medical Plan Pleasant 58 year female who is here for follow-up. 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 No previous stroke history. She is on baby aspirin for primary prevention. Blood pressure control is good. Overall she has been stable and has no exertional symptoms. EF is low normal by echocardiography. She has strong family history of coronary artery disease and previously underwent stress testing which did not show any significant ischemia. We will continue to monitor her if she developed any exertional symptoms then we will consider ischemic evaluation. Thank you for allowing me to participate in the care of your patient. Please feel free to contact me if you have any questions. Coding Level of Care Code Est Pt Level 4 (64640) Diagnoses Diverticulum of left ventricle Q24.8 CPT Codes EKG - CPT: 66255-[id number], Complete ([id number])
== END 2023-10-23 15:20 | disposition home or self-care (01) ==
PROVIDERS: PCP Family Medicine; Visit Provider Internal Medicine Cardiovascular Disease
DX: Q24.8 Other specified congenital malformations of heart (principal)
CPT/HCPCS: 93010; 99214

== ENCOUNTER → 2023-10-23 14:47 | Outpatient (BNVA) | payer OTHER, SELFPAY | PROVIDERS: PCP Family Medicine; Visit Provider Internal Medicine Cardiovascular Disease | DX: Q24.8 Other specified congenital malformations of heart (principal) | CPT/HCPCS: 93005 ==

== ENCOUNTER → 2023-11-01 16:00 | Outpatient (AMB) | payer OTHER, SELFPAY ==
--- NOTE | 2023-11-01 16:16 | A.OFFPC_ITS ---
Vital Signs 11/01/23 16:18 Height 5 ft 7 in Weight 358 lb 2 oz BMI 56.1 BP 116/60 Blood Pressure Location Lt brachial Position Sitting Pulse 97 Pulse Source Pulse Oximeter Pulse Oximetry (%) 98 Oxygen Delivery Method Room Air Intake Visit Reasons: CPE with f/u labs and health maintenance Intake Note: Patient is here today for a physical. 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: Not Required per policy Accompanied by: Self / Same As Patient Allergies latex Allergy (Severe, Verified 11/01/23 16:18) Rash benzonatate [Tessalon Perles] Allergy (Intermediate, Verified 11/01/23 16:18) Swelling Sulfa (Sulfonamide Antibiotics) Allergy (Intermediate, Verified 11/01/23 16:18) rash amoxicillin Allergy (Unknown, Verified 11/01/23 16:18) rash tetracycline Allergy (Unknown, Verified 11/01/23 16:18) rash Medication List - Last Reconciled 11/01/23 by Sandor Llamas MD acetaminophen 650 mg (2 x 325 mg) PO Q4-6H PRN albuterol sulfate 90 mcg/actuation (ProAir HFA) 2 puffs inhalation Q4-6H PRN 30 days aspirin 81 mg PO DAILY bupropion HCl SR 200 mg PO QAM 90 days celecoxib (Celebrex) 200 mg PO BID 30 days cetirizine (Zyrtec) 20 mg PO DAILY diphenhydramine HCl (Benadryl Allergy) 25 mg PO ONCE PRN epinephrine IM famotidine 20 mg PO DAILY fluticasone propionate 50 mcg/actuation sprays intranasal montelukast 10 mg PO DAILY omalizumab (Xolair) mg subcut pantoprazole 40 mg PO DAILY [turmeric gummies PO] Tobacco use date assessed: 11/01/23 Dental Screening Dental Screen Date: 11/01/23 Did you have a dental visit in the last 12 months?: Yes Did you have a dental problem in the last 6 months where you did not have access to dental care?: No Was dental information given to patient?: Patient has dentist HPI CPE with f/u labs and health maintenance HPI Details 58 y/o female presents for a CPE with f/ u labs and health maintenance. No recent labs to review. Diverticulum of L ventricle and has been following up with Dr. [facility] for this. She notes she feels asthma has been well controlled. [facility] Medical History Allergic rhinitis Infected cyst of skin Asthma Cough Surgical History Hx of hysterectomy Hx of removal of cyst History of laparotomy Family History (Updated 11/01/23 @ 16:30 by ROBERT Dior) Father Prostate cancer Rectal cancer Mother CVD (cardiovascular disease) Myocardial infarction HTN (hypertension) Paternal Aunt History of ovarian cancer Maternal Uncle History of lung cancer Paternal Aunt History of breast cancer History of bone cancer Paternal Uncle No problems noted. Social History Housing: Apartment Alcohol intake: current Alcohol intake frequency: holidays/special occasions only Patient Tobacco Use Status: Never used Tobacco e-Cigarette/Vaping Use: Never Used Second Hand Smoke Exposure: No service: No Current occupational status: employed Current occupational exposures/hazards: No Cognitive needs: No Hearing needs: No Vision needs: No Questionnaire PHQ-9 Over the last 2 weeks, how often have you been bothered by any of the following problems? 1. Little interest or pleasure in doing things: not at all 2. Feeling down, depressed, or hopeless: not at all 3. Trouble falling or staying asleep, or sleeping too much: not at all 4. Feeling tired or having little energy: not at all 5. Poor appetite or overeating: not at all 6. Feeling bad about yourself - or that you are a failure or have let yourself or your family down: not at all 7. Trouble concentrating on things, such as reading the newspaper or watching television: not at all 8. Moving or speaking so slowly that other people could have noticed. Or the opposite - being so fidgety or restless that you have been moving around a lot more than usual: not at all 9. Thoughts that you would be better off or of hurting yourself in some way: not at all Total score: 0 Depression Screening Interpretation: Negative Depression Screening Done: Yes Source: Developed by Drs. Jimmy Saini, Janette Andino, Mickey Chiu and colleagues, with an educational dilcia from [employer]. Thrive Questionnaire Date Thrive assessed: 11/01/23 I am a: Patient What is your living situation today?: I have a steady place to live Within the past 12 months, did the food you bought not last and you didn't have the money to get more?: Never true Within the past 12 months, did you worry whether your food would run out before you got money to buy more?: Never true Do you have trouble paying for medicines?: No Do you have trouble getting transportation to medical appointments?: No Do you have trouble paying your heating and electricity bill?: No Do you have trouble taking care of your child, family member or friend?: No Do you have trouble with day-to-day activities such as bathing, preparing meals, shopping, managing finances, etc.?: No Are you currently unemployed and looking for a job?: No Are you interested in more education?: No Currently or been in a relationship where the following occur: No concerns reported THRIVE Score: 0 AUDIT C Alcohol Use Questionnaire (AUDIT-C) 1. How often do you have a drink containing alcohol?: 2-3 times a week 2. How many drinks containing alcohol do you have on a typical day when you are drinking?: 1 or 2 Total Score: 3 RHYS-7 AMB Questionnaire RHYS-7 Date RHYS - 7 assessed: 11/01/23 Feeling nervous, anxious, or on edge: 0 = Not at all Not being able to stop or control worryin = Not at all Worrying too much about different things: 0 = Not at all Trouble relaxin = Not at all Being so restless that it is hard to sit still: 0 = Not at all Becoming easily annoyed or irritable: 0 = Not at all Feeling afraid as if something awful might happen: 0 = Not at all Total RHYS-7 score (0-4 normal; 5-9 mild; 10-14 moderate; 15-21 severe): 0 Source: Developed by Drs. Jimmy Saini, Janette Andino, Mickey Chiu and colleagues, with an educational dilcia from [employer]. RHYS-7 Assessment Billing RHYS-7 Assessment Tool: RHYS-7 Assessment 52295 Review of Systems Const Denies chills, Denies fatigue, Denies fever(s), Denies headache(s) and Denies weakness Eyes Denies change in vision ENT Denies dizziness, Denies headache(s), Denies hearing loss, Denies nasal congestion, Denies sinus pain, Denies sinus pressure and Denies sore throat Card Denies chest pain, Denies lightheadedness, Denies dyspnea and Denies other (palpitations) Resp Denies cough, Denies dyspnea and Denies wheezing GI Denies abdominal pain, Denies melena, Denies hematochezia, Denies change in bowel habits, Denies dyspepsia and Denies nausea Denies hematuria and Denies dysuria Musc Denies abnormal gait, Denies myalgias, Denies arthralgias, Denies numbness and Denies tingling Skin/Breast Denies rash, Denies unusual bruising and Denies wounds Neuro Denies abnormal gait, Denies dizziness, Denies headache(s), Denies memory loss, Denies numbness, Denies Sensory deficit (Neuro), Denies tingling and Denies weakness Psych Denies anxiety, Denies depression and Denies memory loss Endo Denies cold intolerance, Denies fatigue, Denies heat intolerance, Denies polydipsia and Denies polyuria Harmeet/Lymph Denies easy bleeding and Denies easy bruising Aller/Immun Denies wheezing Physical exam (Primary Care) BMI result Body Mass Index 56.1 Tobacco/Smoking Status: Tobacco use Status Tobacco use date assessed 11/01/23 11/01/23 16:23 Patient Tobacco Use Status Never used Tobacco 11/01/23 16:17 e-Cigarette/Vaping Use Never Used 11/01/23 16:17 PHQ-9: PHQ-9 Score PHQ-9: Total score 0 11/01/23 16:23 Depression Screening Interpretation: Negative Thrive Assessment: Date of Thrive Assessment Date Thrive assessed 11/01/23 11/01/23 16:17 Currently or been in a relationship where the following occur: No concerns reported Const General: no acute distress, well developed, alert and awake Nutritional Appearance: obese morbidly obese Orientation/consciousness: patient oriented x3 HENMT Head: Yes normocephalic and Yes atraumatic Ears: hearing grossly normal bilaterally and TM's normal bilaterally General nose exam: Normal external nose present and Normal nares present Mouth: Normal oral and palatal mucosa present and moist mucous membranes Teeth and gingiva: dentition normal Throat: Yes posterior oropharynx normal Eyes General: appearance normal, both eyes and all related structures Pupils: Equal, round and reactive pupils present and Pupil accommodation reflex normal EOM: EOMs intact bilaterally Neck Neck: Yes normal visual inspection, Yes no lymphadenopathy and Yes trachea midline Thyroid: Thyroid normal Carotids: no bruits Lymphatic: no lymphadenopathy noted Chest Chest palpation & inspection: normal inspection of the chest Resp Effort & Inspection: normal respiratory effort Auscultation: clear to auscultation bilaterally Cardio Rate: regular rate Rhythm: regular rhythm Heart sounds: S1 normal heart sound present, S2 normal heart sound present, no gallops, no murmurs and no rubs Bruits: no abdominal aortic bruits and no carotid bruits GI Palpation (GI): No Abdominal aortic bruit present, Soft to palpation, nontender, No hepatosplenomegaly present and No Rebound tenderness present Auscultation: normal bowel sounds General: Yes no CVA tenderness Back/Spine/Pelvis Back: no CVA tenderness Cervical Spine: cervical ROM normal and No Cervical spine tenderness Thoracic/Lumbar Spine: thoraco-lumbar ROM normal, No pain with thoraco-lumbar ROM, No thoracic spinal tenderness and No lumbar spinal tenderness Skin Lesions: no lesions Rashes: no rashes Trauma: no lacerations or abrasions Wounds: no wounds Nails: normal Neuro General: patient oriented x3 Cranial nerves: Yes Equal, round and reactive pupils present Cognition (Neuro): normal cognition Gait exam (Neuro): Normal gait present Motor exam (neuro): 5/5 motor strength present throughout Sensory Exam: No Sensory deficit (Neuro) Deep tendon reflexes (DTR's): Right patellar reflex intensity grade: 2+ and Left patellar reflex intensity grade: 2+ Extrem General: Yes normal to inspection and No edema Psych Appearance: grossly normal Affect: normal affect Attitude: cooperative Thought process: Normal thought process present Results AMB Urinalysis, Automated UA Leukoctes 0 Aiden/uL Last Edit by ROBERT Dior on 11/01/23 16:37 UA Nitrite Negative Last Edit by ROBERT Dior on 11/01/23 16:37 UA Urobilinogen 0 mg/dL Last Edit by ROBERT Dior on 11/01/23 16:37 UA Protein 0 mg/dL Last Edit by Tima Russell JIDeloris on 11/01/23 16:37 UA pH 6.0 Last Edit by Tima Russell RMA on 11/01/23 16:37 UA Blood 0 Srikanth/uL Last Edit by Tima Russell, RMA on 11/01/23 16:37 UA Specific [place] 1.005 Last Edit by Tima Russell JIA on 11/01/23 16: 37 UA Ketone Negative Last Edit by Tima Russell RMA on 11/01/23 16:37 UA Bilirubin 0 mg/dL Last Edit by Tima Russell RMA on 11/01/23 16:37 UA Glucose 0 mg/dL Last Edit by Gwendolyndeloris Russell JIDeloris on 11/01/23 16:37 Assessment and Plan Assessment & Plan (1) Annual physical exam: Code(s): Z00.00 - Encounter for general adult medical examination without abnormal findings Plan: 58-year-old?female?presents?for?complete?physical?exam Encouraged?healthy?diet?with?active?lifestyle?and?plenty?of?exercise (2) SARTHAK (obstructive sleep apnea): Comment: Moderate degree of sleep apnea with increased severity in REM sleep. The AHI was 22/hr, REM AHI was 42/hr and oxygen gina was 75%. Code(s): G47.33 - Obstructive sleep apnea (adult) (pediatric) Plan: Has?follow-up?appointment?with?sleep?medicine?and?will?be?getting?a?CPAP?machine (3) Asthma: Code(s): J45.909 - Unspecified asthma, uncomplicated Plan: Stable Continue?inhaled?medications Continue?allergy?medications (4) Diverticulum of left ventricle: Code(s): Q24.8 - Other specified congenital malformations of heart Plan: Continue?aspirin She?has?follow-up?with?Cardiology?in?a?year (5) Yeast infection of the skin: Code(s): B37.2 - Candidiasis of skin and nail Plan: She?has?like?be?yeast?infection?at?top?of?gluteal?cleft Start?clotrimazole Avoid?excess?moisture Call?or?return?to?office?if?not?improving (6) Lower extremity edema: Code(s): R60.0 - Localized edema Plan: Compression?stockings,?elevation?and?watch?salt/sodium Patient?still?has?difficulty?and?she?can?use? furosemide?sparingly?when?edema?is?more?pronounced (7) Screening for cervical cancer: Code(s): Z12.4 - Encounter for screening for malignant neoplasm of cervix Plan: Followed?by?[employer] steam f[employer] Up-to-date (8) Screening for colon cancer: Code(s): Z12.11 - Encounter for screening for malignant neoplasm of colon Plan: Followed?by?[facility] Up-to-date (9) Breast cancer screening by mammogram: Code(s): Z12.31 - Encounter for screening mammogram for malignant neoplasm of breast Plan: Overdue?for?mammogram-ordered Orders: Orders TSH reflex Free T4 Today Z00.00 - Encounter for general adult medical examination without abnormal findings AMB Urinalysis Automated Today Z13.9 - Encounter for screening, unspecified MM tomosynthesis screening BI Today Z12.31 - Encounter for screening mammogram for malignant neoplasm of breast UA and rflx microscopic Today Z00.00 - Encounter for general adult medical examination without abnormal findings Comprehensive [place]. Panel Fast Today Z00.00 - Encounter for general adult medical examination without abnormal findings Lipid Panel Today Z00.00 - Encounter for general adult medical examination without abnormal findings Microalbumin, Random (w Creat) Today I10 - Essential (primary) hypertension Complete Blood Count Auto Diff Today Z00.00 - Encounter for general adult medical examination without abnormal findings Medications: New clotrimazole 1% 1 appl topical BID 2 weeks 45 grams 0RF furosemide 10 mg (1/2 x 20 mg) PO DAILY 30 days PRN 10 tabs 0RF edema Coding Level of Care Code Est Pt Level 3 (39033) Est Pt Prev Care 40-64y(28586) Diagnoses Annual physical exam Z00.00 SARTHAK (obstructive sleep apnea) G47.33 Asthma J45.909 Diverticulum of left ventricle Q24.8 Yeast infection of the skin B37.2 Lower extremity edema R60.0 Screening for cervical cancer Z12.4 Screening for colon cancer Z12.11 Breast cancer screening by mammogram Z12.31 Additional Codes RHYS-7 Assessment Billing - RHYS-7 Assessment Tool: RHYS-7 Assessment 92071 ([id number])
[2023-11-01 16:18] VITALS: BP 116/60; PULSE 97; O2SAT 98; BMI 56.1
== END ==
PROVIDERS: PCP Family Medicine; Visit Provider Family Medicine
DX: Z00.00 Encounter for general adult medical examination without abnormal findings (principal); G47.33 Obstructive sleep apnea (adult) (pediatric); J45.909 Unspecified asthma, uncomplicated; Q24.8 Other specified congenital malformations of heart; B37.2 Candidiasis of skin and nail; R60.0 Localized edema; Z12.11 Encounter for screening for malignant neoplasm of colon; Z12.31 Encounter for screening mammogram for malignant neoplasm of breast
CPT/HCPCS: 81003; 99213; 99396

== ENCOUNTER 2023-11-01 18:44 | Outpatient (REF) | payer OTHER, SELFPAY ==
[2023-11-01 18:50] LABS: Appearance Urine Clear; Color Urine Yellow; Glucose Urine UA Negative (Negative); Leukocyte Esterase Urine Negative (Negative); Nitrite Urine Negative (Negative); Specific Gravity - Urine <= 1.005 (1.005-1.025); Urine Blood Negative (Negative); Urine Ketones Negative (Negative); Urine Protein Negative (Neg-Trace)
== END 2023-11-01 18:45 | disposition home or self-care (01) ==
LOC: HO.LNP 18:44
PROVIDERS: Visit Provider Family Medicine
DX: Z00.00 Encounter for general adult medical examination without abnormal findings (principal)
CPT/HCPCS: 81003

== ENCOUNTER 2023-11-19 08:07 | Outpatient (REF) | payer OTHER, SELFPAY ==
--- NOTE | ~2023-11-19 | MM_ITS ---
EXAMINATION: MM SCREENING DIGITAL BREAST TOMOSYNTHESIS, BILATERAL CLINICAL INFORMATION: Screening. Asymptomatic. COMPARISON: Mammography: This study is compared with prior exams dating back to 2019. TECHNIQUE: Digital breast tomosynthesis is performed in both the craniocaudal and mediolateral oblique views along with computer-aided detection (CAD). Synthesized 2D images are generated from the tomosynthesis. FINDINGS: The breasts are almost entirely fatty (ACR BI-RADS breast composition Category a). There are no significant masses, abnormal calcifications, or other abnormalities. MM/MM tomosynthesis screening BI IMPRESSION: No mammographic evidence of malignancy. ASSESSMENT: BI-RADS BI-RADS 1 - Negative RECOMMENDATION: Routine annual mammography screening. 1 year F/U This examination should not preclude the clinical evaluation of a suspicious palpable abnormality. This patient's information was entered into a reminder system with a target due date for their next mammogram. Electronically signed by: Mary Lou Perry MD 12/17/2023 11:55 AM EDT
== END 2023-11-19 08:08 | disposition home or self-care (01) ==
LOC: HO.MAMMO 08:07
PROVIDERS: PCP Family Medicine; Referring Provider Student in an Organized Health Care Education/Training Program; Visit Provider Family Medicine
DX: Z12.31 Encounter for screening mammogram for malignant neoplasm of breast (principal)
CPT/HCPCS: 77063; 77067

== ENCOUNTER → 2023-11-19 08:15 | Outpatient (BNV) | payer OTHER, SELFPAY | PROVIDERS: PCP Family Medicine; Referring Provider Student in an Organized Health Care Education/Training Program; Visit Provider Radiology Diagnostic Radiology | DX: Z12.31 Encounter for screening mammogram for malignant neoplasm of breast (principal) | CPT/HCPCS: 77063; 77067 ==

== ENCOUNTER 2023-11-22 08:46 | Outpatient (REF) | payer OTHER, SELFPAY ==
[2023-11-22 11:06] LABS: MANUAL DIFF FLAG NO
[2023-11-22 11:22] LABS: Basophils Absolute Auto 0.1 X10*3/uL (0.0-0.2); Basophils Percent Auto 0.6 % (0-2); Eosinophils Absolute Auto 0.1 X10*3/uL (0.0-0.4); Eosinophils Percent Auto 1.1 % (0-4); Hematocrit 39.7 % (37.0-47.0); Imm Gran Abs Auto 0.03 X10*3/uL (0.00-0.03); Imm Gran Pct Auto 0.4 % (0.0-0.4); Lymphocytes Absolute Auto 2.3 X10*3/uL (1.2-4.9); Lymphocytes Percent Auto 27.2 % (20-40); Mean Corpuscular HGB Conc 32.7 g/dl (31.0-35.0); Mean Corpuscular Hemoglobin 30.2 pg (27.0-33.0); Mean Corpuscular Volume 92.1 fL (80.0-98.0); Mean Platelet Volume 11.6 fL (9.4-12.3); Monocytes Absolute Auto 0.6 X10*3/uL (0.1-1.2); Monocytes Percent Auto 7.4 % (2-11); Neutrophils Absolute Auto 5.3 x10*3/uL (2.0-8.3); Neutrophils Percent Auto 63.3 % (45-73); Platelet Count 276 X10*3/uL (160-400); Red Blood Count 4.31 X10*6/uL (4.20-5.50); Red Cell Distribution Width 13.9 % (11.0-16.0); White Blood Count 8.4 X10*3/uL (4.8-10.8)
[2023-11-22 12:01] LABS: Alanine Aminotransferase 16 U/L (0-31); Alkaline Phosphatase 117 U/L (39-117); Anion Gap 12 (12-20); Aspartate Amino Transferase 13 U/L (5-31); Bilirubin Total 0.5 mg/dL (0.0-1.0); Blood Urea Nitrogen 23 mg/dL (9-16); Calcium 9.3 mg/dL (8.4-10.2); Carbon Dioxide 28 mmol/L (22-29); Chloride 108 mmol/L (96-108); Cholesterol 186 mg/dL (<200); Estimated Glomerular Filt Rate 51; Glucose Fasting 104 mg/dL (60-99); HDL Cholesterol 48 mg/dL (>40); LDL Cholesterol Calculated 121 mg/dL (<100); Potassium 4.2 mmol/L (3.3-5.1); Sodium 144 mmol/L (135-145); TSH reflex Free T4 2.71 uIU/mL (0.32-4.0); Total Protein 6.7 g/dL (6.5-8.0); Triglycerides 87 mg/dL (<150)
[2023-11-22 12:04] LABS: Creatinine Urine 237.89 mg/dL; Microalbum/Creatinine Ratio Ur 12.1 ug/mg cr (<30)
== END 2023-11-22 08:47 | disposition home or self-care (01) ==
LOC: HO.WFDLDS 08:46
PROVIDERS: Visit Provider Family Medicine
DX: Z00.00 Encounter for general adult medical examination without abnormal findings (principal); I10 Essential (primary) hypertension
CPT/HCPCS: 36415; 80053; 80061; 82043; 82570; 84443; 85025

== ENCOUNTER → 2023-11-29 11:16 | Outpatient (AMB) | payer OTHER, SELFPAY ==
--- NOTE | 2023-11-29 11:07 | MHC.PC.OV ---
Intake Visit Reasons: f/u CPE-labs via telemedicine Intake Note: lab review Allergies latex Allergy (Severe, Verified 11/29/23 11:08) Rash benzonatate [Tessalon Perles] Allergy (Intermediate, Verified 11/29/23 11:08) Swelling Sulfa (Sulfonamide Antibiotics) Allergy (Intermediate, Verified 11/29/23 11:08) rash amoxicillin Allergy (Unknown, Verified 11/29/23 11:08) rash tetracycline Allergy (Unknown, Verified 11/29/23 11:08) rash Tobacco use date assessed: 11/01/23 Dental Screening Dental Screen Date: 11/01/23 HPI f/u CPE-labs via telemedicine HPI Details 58 y/o female presents to f/u CPE-labs via telemedicine. Labs drawn 11/22/23. Reviewed labs with pt. Triglycerides 87. TC 186. LDL 121. HDL 48. Elevated fasting glucose of 104. TSH level 2.71. Bilateral knee pain and pt notes she had been having difficulty scheduling an appt. with pain management. HPI Comments History of Present Illness Details Documentation assistance for Sandor Llamas MD, was provided by Nils Stanley,? Data Analyst Report Writer on 11/29/2023 at 11:36 AM EST. I, Dr. Llamas, have read, observed, and verified documentation. PFS Medical History Allergic rhinitis Infected cyst of skin Asthma Cough Surgical History Hx of hysterectomy Hx of removal of cyst History of laparotomy Family History (Updated 11/01/23 @ 16:30 by ROBERT Dior) Father Prostate cancer Rectal cancer Mother CVD (cardiovascular disease) Myocardial infarction HTN (hypertension) Paternal Aunt History of ovarian cancer Maternal Uncle History of lung cancer Paternal Aunt History of breast cancer History of bone cancer Paternal Uncle No problems noted. Social History Housing: Apartment Alcohol intake: current Alcohol intake frequency: holidays/special occasions only Patient Tobacco Use Status: Never used Tobacco e-Cigarette/Vaping Use: Never Used Second Hand Smoke Exposure: No service: No Current occupational status: employed Current occupational exposures/hazards: No Cognitive needs: No Hearing needs: No Vision needs: No Questionnaire Thrive Questionnaire Date Thrive assessed: 11/01/23 RHYS-7 AMB Questionnaire RHYS-7 Date RHYS - 7 assessed: 11/01/23 Source: Developed by Drs. Jimmy Saini, Janette Andino, Mickey Chiu and colleagues, with an educational dilcia from [employer]. Review of Systems Const Denies chills, Denies fatigue, Denies fever(s), Denies headache(s) and Denies weakness ENT Denies dizziness and Denies headache(s) Card Denies dyspnea Resp Denies cough, Denies dyspnea, Denies wheezing and Denies other (shortness of breath) Musc Denies numbness and Denies tingling Neuro Denies dizziness, Denies headache(s), Denies numbness, Denies tingling and Denies weakness Psych Denies anxiety and Denies depression Endo Denies fatigue Aller/Immun Denies wheezing Physical exam (Primary Care) Tobacco/Smoking Status: Tobacco use Status Tobacco use date assessed 11/01/23 11/29/23 11:15 Patient Tobacco Use Status Never used Tobacco 11/29/23 11:15 e-Cigarette/Vaping Use Never Used 11/29/23 11:15 Thrive Assessment: Date of Thrive Assessment Date Thrive assessed 11/01/23 11/29/23 11:15 Telehealth Telehealth Telehealth Platform: Telephone Location of provider rendering services: practice address Location of patient: address on file Patient Identification confirmed using: Name, : Yes Telehealth method: voice only Patient verbally consented to treatment: Yes Patient verbally consented to billing insurance company: Yes Patient informed of any privacy concerns related to visit: Yes Minutes spent on Phone/Video with Pt.: 21 Assessment and Plan Assessment & Plan (1) Elevated LDL cholesterol level: Code(s): E78.00 - Pure hypercholesterolemia, unspecified (2) Elevated fasting blood sugar: Code(s): R73.01 - Impaired fasting glucose (3) Bilateral knee pain: Code(s): M25.561 - Pain in right knee; M25.562 - Pain in left knee (4) Morbid obesity with BMI of 50.0-59.9, adult: Code(s): E66.01 - Morbid (severe) obesity due to excess calories; Z68.43 - Body mass index [BMI] 50.0-59.9, adult Medications: New semaglutide (weight loss) (Wegovmaris) administer weeks 1 through 4 of therapy 0.25 mg (0.5 mL) subcut QWEEK 28 days 2 mL 2RF E66.01 - Morbid (severe) obesity due to excess calories, M25.561 - Pain in right knee, M25.562 - Pain in left knee, Z68.43 - Body mass index [BMI] 50.0-59.9, adult Refilled celecoxib (Celebrex) 200 mg PO BID 30 days 60 caps 3RF Coding Level of Care Code Tele Est Pt Level 3 (93186) Diagnoses Elevated LDL cholesterol level E78.00 Elevated fasting blood sugar R73.01 Bilateral knee pain M25.561; M25.562 Morbid obesity with BMI of 50.0-59.9, adult E66.01; Z68.43
== END ==
LOC: HO.HMGFM 11:17
PROVIDERS: PCP Family Medicine; Visit Provider Family Medicine
DX: E78.00 Pure hypercholesterolemia, unspecified (principal); E66.01 Morbid (severe) obesity due to excess calories; Z68.43 Body mass index [BMI] 50.0-59.9, adult; M25.561 Pain in right knee; R73.01 Impaired fasting glucose; M25.562 Pain in left knee
CPT/HCPCS: 99213

== ENCOUNTER 2024-01-01 09:54 | Day surgery (SDC) | payer OTHER, SELFPAY ==
[2023-12-30 16:27] VITALS: BMI 55.3
--- NOTE | 2023-12-31 08:47 | P.CONAN_ITS ---
Documented by User: Gregoria Huang NP 12/31/23 08:52 HPI - Anesthesia Eval Consult details Narrative: 58yo F for Peripheral Nerve Stimulator Implant - Infrapatellar Saphenous Nerve Follows [facility] [place] Cardiology for mild , apical diverticulum of LV. Stablea t 09/2023 office visit. Strong FHx of CAD, but negative stress testing for pt. PMFSH Active Problems Active Problems: All Active Problems Elevated LDL cholesterol level (Acute) Yeast infection of the skin (Acute) SARTHAK (obstructive sleep apnea) (Acute) Daytime sleepiness (Acute) Morbid obesity with BMI of 50.0-59.9, adult (Acute) Snoring (Acute) Left knee pain (Acute) Right knee pain (Acute) Hypersomnolence (Acute) Difficulty sleeping (Acute) Bilateral knee pain (Acute) Preop examination (Acute) PAC (premature atrial contraction) (Acute) Preop cardiovascular exam (Acute) Aortic stenosis (Acute) Shortness of breath (Acute) Bacteria in urine (Acute) Patellofemoral arthritis (Acute) Tachycardia (Acute) Lymphedema (Acute) Varicose veins of left lower extremity with inflammation (Acute) AVILES (dyspnea on exertion) (Acute) Knee pain (Acute) Pain and swelling of lower extremity (Acute) Lower extremity edema (Acute) Anxiety with depression (Acute) Dermatitis (Acute) Adult general medical exam (Acute) Diverticulum of left ventricle (Acute) Chest pain (Acute) Left ankle sprain (Acute) Hand swelling (Acute) Ventricular aneurysm (Acute) Back pain (Acute) Chest pressure (Acute) Urticaria (Acute) Allergy (Acute) Bleeding per rectum (Acute) Morbid obesity (Acute) Elevated fasting blood sugar (Acute) Neoplasm of uncertain behavior of skin (Acute) Breast cancer screening by mammogram (Acute) Screening for cervical cancer (Acute) Screening for colon cancer (Acute) Annual physical exam (Acute) Abscess of groin, right (Acute) Low back pain (Acute) Vaginal discharge (Acute) Dysuria (Acute) Family history of coronary arteriosclerosis (Acute) Close exposure to COVID-19 virus (Acute) Allergic rhinitis (Acute) Infected cyst of skin (Acute) Asthma (Acute) Cough (Acute) Past Medical History Medical History (Updated 12/31/23 @ 08:00 by Tete Lujan RN) Nonrheumatic aortic (valve) stenosis PAC (premature atrial contraction) Sleep apnea Allergic rhinitis Infected cyst of skin Asthma Cough Family History Family History (Updated 11/01/23 @ 16:30 by ROBERT Dior) Father Prostate cancer Rectal cancer Mother CVD (cardiovascular disease) Myocardial infarction HTN (hypertension) Paternal Aunt History of ovarian cancer Maternal Uncle History of lung cancer Paternal Aunt History of breast cancer History of bone cancer Paternal Uncle No problems noted. Surgical History Surgical History Hx of hysterectomy Hx of removal of cyst History of laparotomy Social History Social History Housing: Apartment Do you presently have visiting nurse or other home services: No Alcohol intake: current Alcohol intake frequency: does not drink Patient Tobacco Use Status: Never used Tobacco e-Cigarette/Vaping Use: Never Used Second Hand Smoke Exposure: No Use of substances other than those prescribed or required for medical reasons: No Have you been hit, kicked, punched, or otherwise hurt by someone within the past year? If so, by whom?: No Are you DNR?: No Advance Directives: No Advance Directives Information Provided: Yes Advance Directives on File: No Recently lost weight without trying: No Eating poorly because of decreased appetite: No Nutrition Risks: No Nutritional Risk Patient : No : No Poor oral hygiene: No service: No Current occupational status: employed Current occupational exposures/hazards: No Cognitive needs: No Hearing needs: No Vision needs: No Meds Allergies Allergy/AdvReac Type Severity Reaction Status Date / Time latex Allergy Severe Rash Verified 11/29/23 11:08 benzonatate [Tessalon Perles] Allergy Intermediate Swelling Verified 11/29/23 11:08 Sulfa (Sulfonamide Allergy Intermediate rash Verified 11/29/23 11:08 Antibiotics) amoxicillin Allergy Unknown rash Verified 11/29/23 11:08 tetracycline Allergy Unknown rash Verified 11/29/23 11:08 Home Medications ?Medication ?Instructions ?Recorded ?Confirmed ?Last Taken ?Type aspirin 81 mg tablet,delayed 81 mg PO DAILY 03/15/21 11/01/23 Unknown History release fluticasone propionate 50 spray intranasal 10/10/21 11/01/23 Unknown History mcg/actuation nasal spray,suspension omalizumab 150 mg/mL subcutaneous mg subcut 10/10/21 11/01/23 Unknown History syringe (Xolair) cetirizine 10 mg capsule (Zyrtec) 20 mg PO DAILY 03/12/22 11/01/23 Unknown History famotidine 20 mg tablet 20 mg PO DAILY 03/12/22 11/01/23 Unknown History pantoprazole 40 mg tablet,delayed 40 mg PO DAILY 03/12/22 11/01/23 Unknown History release diphenhydramine HCl 25 mg tablet 25 mg PO ONCE PRN 08/31/22 11/01/23 Unknown History (Benadryl Allergy) turmeric gummies PO 08/31/22 11/01/23 Unknown History epinephrine 0.3 mg/0.3 mL IM 01/02/23 11/01/23 Unknown History injection, auto-injector Exam Height,Weight and Vital Signs: Height 5 ft 7 in Weight 160.118 kg Pertinent Lab Results Pertinent Lab Results: Laboratory Tests 11/22/23 08:47 WBC 8.4 Hgb 13.0 Hct 39.7 Plt Count 276 Sodium 144 Potassium 4.2 Chloride 108 Carbon Dioxide 28 BUN 23 H Creatinine 1.09 Narrative Narrative: EKG 09/2023 Sinus rhythm 100 beats per minute, normal axis, poor R-wave progression, low voltage, QTC 446 milliseconds. ECHO 07/2023 Conclusions: - The left ventricular systolic function is mildly decreased. The visually estimated ejection fraction is between 45-50%. 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 - There is mild aortic valve stenosis. Holter 2022 * Total monitoring time 3 days. * Underlying rhythm is sinus. Average ventricular rate 98/Min. Range 75 to 134/Min. * Frequent supraventricular ectopy. [place] of 6%. Short runs noted. * Rare ventricular ectopy. * No significant pauses or AV blocks. * No patient marker or diary. NM cardiolite stress test 2021 Impression: 1. Normal myocardial perfusion 2. Gated LVEF is 56% 3. Transient ischemic dilatation not present Stress EKG is negative for ischemia Assessment and Plan Assessment Anesthesia Assessment: Chart Reviewed Documented by User: James Acevedo MD 01/01/24 12:13 [facility] Past Medical History Medical History (Updated 12/31/23 @ 08:00 by Tete Lujan RN) Nonrheumatic aortic (valve) stenosis PAC (premature atrial contraction) Sleep apnea Allergic rhinitis Infected cyst of skin Asthma Cough Family History Family History (Updated 11/01/23 @ 16:30 by ROBERT Dior) Father Prostate cancer Rectal cancer Mother CVD (cardiovascular disease) Myocardial infarction HTN (hypertension) Paternal Aunt History of ovarian cancer Maternal Uncle History of lung cancer Paternal Aunt History of breast cancer History of bone cancer Paternal Uncle No problems noted. Family history of problems with anesthesia: No Surgical History Surgical History Hx of hysterectomy Hx of removal of cyst History of laparotomy History of Problems with Anesthesia: No Social History Social History Housing: Apartment Do you presently have visiting nurse or other home services: No Alcohol intake: current Alcohol intake frequency: does not drink Patient Tobacco Use Status: Never used Tobacco e-Cigarette/Vaping Use: Never Used Second Hand Smoke Exposure: No Use of substances other than those prescribed or required for medical reasons: No Have you been hit, kicked, punched, or otherwise hurt by someone within the past year? If so, by whom?: No Are you DNR?: No Advance Directives: No Advance Directives Information Provided: Yes Advance Directives on File: No Recently lost weight without trying: No Eating poorly because of decreased appetite: No Nutrition Risks: No Nutritional Risk Patient : No : No Poor oral hygiene: No service: No Current occupational status: employed Current occupational exposures/hazards: No Cognitive needs: No Hearing needs: No Vision needs: No Meds Allergies Allergy/AdvReac Type Severity Reaction Status Date / Time latex Allergy Severe Rash Verified 11/29/23 11:08 benzonatate [Tessalon Perles] Allergy Intermediate Swelling Verified 11/29/23 11:08 Sulfa (Sulfonamide Allergy Intermediate rash Verified 11/29/23 11:08 Antibiotics) amoxicillin Allergy Unknown rash Verified 11/29/23 11:08 tetracycline Allergy Unknown rash Verified 11/29/23 11:08 Home Medications ?Medication ?Instructions ?Recorded ?Confirmed ?Last Taken ?Type aspirin 81 mg tablet,delayed 81 mg PO DAILY 03/15/21 11/01/23 Unknown History release fluticasone propionate 50 spray intranasal 10/10/21 11/01/23 Unknown History mcg/actuation nasal spray,suspension omalizumab 150 mg/mL subcutaneous mg subcut 10/10/21 11/01/23 Unknown History syringe (Xolair) cetirizine 10 mg capsule (Zyrtec) 20 mg PO DAILY 03/12/22 11/01/23 Unknown History famotidine 20 mg tablet 20 mg PO DAILY 03/12/22 11/01/23 Unknown History pantoprazole 40 mg tablet,delayed 40 mg PO DAILY 03/12/22 11/01/23 Unknown History release diphenhydramine HCl 25 mg tablet 25 mg PO ONCE PRN 08/31/22 11/01/23 Unknown History (Benadryl Allergy) turmeric gummies PO 08/31/22 11/01/23 Unknown History epinephrine 0.3 mg/0.3 mL IM 01/02/23 11/01/23 Unknown History injection, auto-injector Exam Pertinent Lab Results Pertinent Lab Results: iLaboratory Tests 11/22/23 08:47 WBC 8.4 Hgb 13.0 Hct 39.7 Plt Count 276 Sodium 144 Potassium 4.2 Chloride 108 Carbon Dioxide 28 BUN 23 H Creatinine 1.09 Airway Mallampati Class: III TM Dist: >3cm Neck ROM: Full Assessment and Plan Assessment Anesthesia Assessment: Anesthesia Plan Discussed Final Anesthetic Review Family History of Problems with Anesthesia: No History of Problems with Anesthesia: No NPO: Yes ASA Class: III Final Preanesthetic Review: No Changes in Pt Med Stat, Meds/Allgs Chart Reviewed, Consent Obtained/Reviewed and Anes Risks/Benef Reviewed Patient Risk: Intermediate Procedure Risk: Low Anesthetic Plan Anesthetic Plan: MAC: Disposition: Standard PACU
[2024-01-01 10:36] VITALS: BP 144/77; PULSE 128; RESP 16; TEMP 36.8; O2SAT 94
--- NOTE | 2024-01-01 10:51 | ECG_ITS ---
Test Reason : pre op Blood Pressure : / mmHG Vent. Rate : 092 BPM Atrial Rate : 092 BPM P-R Int : 152 ms QRS Dur : 074 ms QT Int : 348 ms P-R-T Axes : 000 -22 129 degrees QTc Int : 430 ms Normal sinus rhythm Low voltage QRS Inferior infarct , age undetermined Cannot rule out Anterior infarct , age undetermined Abnormal ECG No previous ECGs available Referred By: James Acevedo Electronically Signed By:NICHOLAS JACKSON
[2024-01-01 11:39] LABS: MRSA Nasal PCR NEGATIVE (Negative); SA Nasal PCR NEGATIVE (Negative)
--- NOTE | 2024-01-01 12:25 | MHC.SHP ---
Pre-Procedural Eval Section A - 24 Hr Update-Section A only Date of Service: 01/01/24 The patient is an INPATIENT: No Changes since office visit: Yes Patient answered all questions The patient has been examined within 24 hours of the surgical procedure. The History & Physical has been completed within 30 days and I have reviewed it.: No Section B - Complete if H&P > 30 days Chief Complaint: Right and Left knee pain Relevant Family History (Specify if Yes): No Relevant Social History: None Present Medications: see Short Stay Collaborative assessment Medical History: No relevant PMH History of Previous Operations: No relevant previous surgery Allergies: Allergies Allergy/AdvReac Type Severity Reaction Status Date / Time latex Allergy Severe Rash Verified 11/29/23 11:08 benzonatate [Tessalon Perles] Allergy Intermediate Swelling Verified 11/29/23 11:08 Sulfa (Sulfonamide Allergy Intermediate rash Verified 11/29/23 11:08 Antibiotics) amoxicillin Allergy Unknown rash Verified 11/29/23 11:08 tetracycline Allergy Unknown rash Verified 11/29/23 11:08 Review of Systems Sugical H&P ROS: Negative: Constitution, Cardiovascular and Respiratory Plan Diagnosis/Plan: Unchanged I have reviewed the history and physical and performed a pertinent physical examination on my patient. No changes have occurred unless specified. Time Spent With Patient Time: Total time managing care of this patient today ____ minutes.
[2024-01-01 13:36] VITALS: BP 128/80; PULSE 75; RESP 17; TEMP 36.1; O2SAT 100
--- NOTE | 2024-01-01 13:42 | P.BOP_ITS ---
Brief Operative Note Date of Service: 01/01/24 Pre-op diagnosis: Chronic right knee pain Post-op diagnosis: same Procedure: Infrapatellar saphenous nerve stimulation trial Implants: [employer] trial lead Surgeon: Manish Saldana MD Anesthesia: MAC Was an Material Engineer used for this Procedure?: No Estimated blood loss (mL): 2 Pathology: none sent Condition: stable Disposition: PACU
--- NOTE | 2024-01-01 13:44 | W.PM.OPN ---
Operative Note Operative Note Date of Service: 01/01/24 Narrative: Pre-procedure diagnosis: Chronic right knee pain Postprocedure diagnosis: Same Percutaneous trial of peripheral nerve stimulation of right infrapatellar saphenous nerve After obtaining written consent, pre-procedure blood pressure and heart rate were stable and recorded in the nursing record. Standard monitors were applied. A peripheral IV was started. Antibiotics, clindamycin 900 mg, were given prior to the start of the procedure. The patient was positioned in supine position and sedated. The right knee area was widely prepped with chloraprep and draped in sterile fashion. Using a skin marker, a 1 cm saggital line was marked over the needle entry location. The skin at the insertion site was anesthetized with 0.5% lidocaine. A small stab was made with a scalpel to allow for easy insertion of the introducer. The introducer was advanced subcutaneously along the length of the medial border of the right tibia. The needle was placed just medial to the infrapatellar portion of the tibial plateau. AP and lateral views of the fluoroscopy were used to confirm adequate placement. The electrode array was passed through the introducer. Fluoroscopy was used to confirm appropriate lead position. The lead was secured using benzoin, steri-strips and tegaderms. The patient tolerated the procedure well. No complications were encountered. Following the procedure the patient's vital signs were stable. In the PACU, stimulation was performed and good coverage was obtained. The patient was discharged home in good condition with post-procedural instructions. Time Out: Immediately prior to the procedure, the following was verbally confirmed that there is a signed consent form and that the correct patient, planned procedure, site and side are consistent with documentation and that necessary equipment and/or blood products are available prior to the start of the case. Complications: none EBL: <5 cc
[2024-01-01 13:51] VITALS: BP 124/83; PULSE 76; RESP 17; O2SAT 97
[2024-01-01 14:04] VITALS: BP 143/89; PULSE 71; RESP 17; TEMP 36.2; O2SAT 97
== END 2024-01-01 14:53 | disposition home or self-care (01) ==
PROVIDERS: Registered Nurse Emergency; PCP Family Medicine; Visit Provider Internal Medicine
PROC: (CPT 64555; principal; 2024-01-01 11:30)
DX: M25.561 Pain in right knee (principal); G89.29 Other chronic pain; J45.909 Unspecified asthma, uncomplicated; Z79.51 Long term (current) use of inhaled steroids; Z79.82 Long term (current) use of aspirin; Z79.899 Other long term (current) drug therapy; Z88.1 Allergy status to other antibiotic agents; Z88.2 Allergy status to sulfonamides; Z91.040 Latex allergy status
CPT/HCPCS: 64555; 87640; 87641; 93005; C1897; J0736; J1100; J2003; J2250; J2405; J2704; J2795; J3010

== ENCOUNTER → 2024-01-01 09:54 | Outpatient (BNV) | payer OTHER, SELFPAY | PROVIDERS: PCP Family Medicine; Visit Provider Internal Medicine | DX: M25.561 Pain in right knee (principal) | CPT/HCPCS: 64555 ==

== ENCOUNTER 2024-01-10 10:53 | Outpatient (AMB) | payer OTHER, SELFPAY ==
--- NOTE | 2024-01-10 10:57 | A.OFFVIS_ITS ---
Vital Signs 01/10/24 10:59 Height 5 ft 7 in Weight 357 lb BMI 55.9 BP 180/77 H Blood Pressure Location Lt radial Position Sitting Respiration 16 Pulse 93 Pulse Source Pulse Oximeter Pulse Oximetry (%) 97 Oxygen Delivery Method Room Air Intake Visit Reasons: S/p (R) Infrapatellar Saphenous PNS Trial 01/01/24 Allergies latex Allergy (Severe, Verified 01/10/24 11:02) Rash benzonatate [Tessalon Perles] Allergy (Intermediate, Verified 01/10/24 11:02) Swelling Sulfa (Sulfonamide Antibiotics) Allergy (Intermediate, Verified 01/10/24 11:02) rash amoxicillin Allergy (Unknown, Verified 01/10/24 11:02) rash tetracycline Allergy (Unknown, Verified 01/10/24 11:02) rash Medication List - Last Reconciled 01/10/24 by Jasmyn Vizcarra LPN acetaminophen 650 mg (2 x 325 mg) PO Q4-6H PRN albuterol sulfate 90 mcg/actuation (ProAir HFA) 2 puffs inhalation Q4-6H PRN 30 days aspirin 81 mg PO DAILY bupropion HCl SR 200 mg PO QAM 90 days celecoxib (Celebrex) 200 mg PO BID 30 days cetirizine (Zyrtec) 20 mg PO DAILY clotrimazole 1% 1 appl topical BID 2 weeks diphenhydramine HCl (Benadryl Allergy) 25 mg PO ONCE PRN epinephrine IM famotidine 20 mg PO DAILY fluticasone propionate 50 mcg/actuation sprays intranasal furosemide 10 mg (1/2 x 20 mg) PO DAILY PRN 30 days montelukast 10 mg PO DAILY omalizumab (Xolair) mg subcut pantoprazole 40 mg PO DAILY semaglutide (weight loss) (Wegovy) 0.25 mg (0.5 mL) subcut QWEEK 28 days [turmeric gummies PO] HPI HPI S/p (R) Infrapatellar Saphenous PNS Trial 01/01/24: Details: 58-year-old female who presents today to the office for a status post right infrapatellar saphenous peripheral nerve stimulator trial. The patient reports 80% relief following the procedure. She has significant pain relief. She currently rates her pain level at 0-2/10 in intensity. She is able to walk and stand from the sitting position. She endorses appropriate paresthesia sensation from the device. She noticed decreased in the frequency and could feel the residual pain. She wants to proceed with left sided PNS trial as she noticed significant relief on right side. She had hysterectomy last year. Past Procedures: 01/01/24: Percutaneous trial of peripheral nerve stimulation of right infrapatellar saphenous nerve: 80% relief. 02/18/23: Left diagnostic infrapatellar saphenous nerve block, ultrasound guided: 90% relief for two days. [facility] Medical History (Updated 12/31/23 @ 08:00 by Tete Lujan RN) Nonrheumatic aortic (valve) stenosis PAC (premature atrial contraction) Sleep apnea Allergic rhinitis Infected cyst of skin Asthma Cough Surgical History Hx of hysterectomy Hx of removal of cyst History of laparotomy Family History (Updated 11/01/23 @ 16:30 by ROBERT Dior) Father Prostate cancer Rectal cancer Mother CVD (cardiovascular disease) Myocardial infarction HTN (hypertension) Paternal Aunt History of ovarian cancer Maternal Uncle History of lung cancer Paternal Aunt History of breast cancer History of bone cancer Paternal Uncle No problems noted. Social History Housing: Apartment Do you presently have visiting nurse or other home services: No Alcohol intake: current Alcohol intake frequency: does not drink Patient Tobacco Use Status: Never used Tobacco e-Cigarette/Vaping Use: Never Used Second Hand Smoke Exposure: No service: No Current occupational status: employed Current occupational exposures/hazards: No Cognitive needs: No Hearing needs: No Vision needs: No Review of Systems Const All systems reviewed & are unremarkable except as noted in HPI and below Physical Exam Vital Signs: Last Vital Signs Pulse 93 01/10/24 10:59 Resp 16 01/10/24 10:59 BP 180/77 H 01/10/24 10:59 Pulse Ox 97 01/10/24 10:59 Oxygen Delivery Method Room Air 01/10/24 10:59 BMI result Body Mass Index 55.9 General: Appears afebrile. Alert and oriented. Mood and affect appropriate. Follows and participates in conversation appropriately. Respiratory effort is unlabored. Able to transition from sit to stand unassisted. Ambulates with bilaterally normal heel strike and toe off. Lead removed with tip intact. Results Reviewed Results Reviewed: No imaging is available for review. Assessment & Plan Assessment & Plan (1) Right knee pain: Code(s): M25.561 - Pain in right knee Category: Medical Qualifiers: Chronicity: chronic Qualified Code(s): M25.561 - Pain in right knee; G89.29 - Other chronic pain Plan We will schedule her for a right infrapatellar saphenous stimulator implant with [employer] device. Discussed the risks and benefits of the procedure with the patient in detail. All questions were answered. The patient is on board with the plan. Justification for interventional therapy: ? Patient with average pain > 6/10 ? Patient has exhausted conservative therapy ? Patient unable to tolerate physical therapy due to pain. ? Percutaneous trial of peripheral nerve stimulation of right infrapatellar saphenous nerve: 80% relief. . Patient has a good understanding of their pain condition and has appropriate mental and social support Scribed for Dr. Saldana by Clint Kennedy, biomedical equipment specialist, on 01/10/2024. I, Dr. Saldana, have personally reviewed and agree with the information entered by the scribe. Coding Level of Care Code Est Pt Level 3 (98742) Diagnoses Chronic pain of right knee M25.561; G89.29 Chronicity: chronic
[2024-01-10 10:59] VITALS: BP 180/77; PULSE 93; RESP 16; O2SAT 97; BMI 55.9
== END 2024-01-10 11:22 | disposition home or self-care (01) ==
PROVIDERS: PCP Family Medicine; Visit Provider Internal Medicine
DX: M25.561 Pain in right knee (principal); G89.29 Other chronic pain
CPT/HCPCS: 99024

== ENCOUNTER → 2024-01-10 10:53 | Outpatient (BNVA) | payer OTHER, SELFPAY | PROVIDERS: PCP Family Medicine; Visit Provider Internal Medicine ==

== ENCOUNTER 2024-02-11 15:31 | Outpatient (AMB) | payer OTHER, SELFPAY ==
--- NOTE | 2024-02-11 15:32 | A.OFFVIS_ITS ---
Vital Signs 02/11/24 15:33 Height 5 ft 7 in Weight 357 lb BMI 55.9 Intake Visit Reasons: Follow up Intake Note: Patient presents for follow up Allergies latex Allergy (Severe, Verified 02/11/24 15:34) Rash amoxicillin Allergy (Intermediate, Verified 02/12/24 12:54) rash benzonatate [Tessalon Perles] Allergy (Intermediate, Verified 02/11/24 15:34) Swelling Sulfa (Sulfonamide Antibiotics) Allergy (Intermediate, Verified 02/11/24 15:34) rash tetracycline Allergy (Intermediate, Verified 02/12/24 12:54) rash HPI Comments Details: 58 year old female with h/o Asthma presents for a follow up of Sleep Apnea. She cleans her mask daily, fills the reservoir with distilled water, and tolerates the pressures. She is sleeping better now with the CPAP, she goes to bed at 12:30 and gets up at 6:45am, going to the bathroom once at night. She denies headaches, feeling sluggish, brain fog and memory difficulties. 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 She is trying, nose pillow masks, full face masks, to figure out the best fit for her. She notices her teeth hurt due to the coldness of the air and thinks the straps are too tight. Suggested trying mask liners, adjusting temperature of the air, however she due to allergies she doesn't want to adjust temperature. Her mood is good, she is working with weight management Dr. Llamas. and awaiting approval of [facility]. Has a Peripheral Nerve Stimulation device in the R. knee surgically implanted tomorrow to help with arthritic knee pain. CPAP compliance >4 hours = 83% Average use total = 5 hours and 34 min per night Leaks Median = 11.5 to Maximum 32.2 AHI is 1.1 Serial number [id number] [facility] Medical History Nonrheumatic aortic (valve) stenosis PAC (premature atrial contraction) Sleep apnea Allergic rhinitis Infected cyst of skin Asthma Cough Surgical History (Updated 02/12/24 @ 12:[address] RN) H/O knee surgery Hx of hysterectomy Hx of removal of cyst History of laparotomy Family History Father Prostate cancer Rectal cancer Mother CVD (cardiovascular disease) Myocardial infarction HTN (hypertension) Paternal Aunt History of ovarian cancer Maternal Uncle History of lung cancer Paternal Aunt History of breast cancer History of bone cancer Paternal Uncle No problems noted. Social History Household Members Other:: roommate Housing: Apartment Are you a primary hospice patient care secretary to a significant other at home: No Do you presently have visiting nurse or other home services: No Alcohol intake: current Alcohol intake frequency: a few times a week Patient Tobacco Use Status: Never used Tobacco e-Cigarette/Vaping Use: Never Used Second Hand Smoke Exposure: No Use of substances other than those prescribed or required for medical reasons: No Have you been hit, kicked, punched, or otherwise hurt by someone within the past year? If so, by whom?: No Are you DNR?: No Advance Directives: No Advance Directives Information Provided: No Advance Directives on File: No Recently lost weight without trying: No How much weight loss: Not applicable Eating poorly because of decreased appetite: No Nutrition screen score: 0 Nutrition Risks: No Nutritional Risk Patient : No : No Poor oral hygiene: No service: No Current occupational status: employed Current occupational exposures/hazards: No Cognitive needs: No Hearing needs: No Vision needs: No Review of Systems Const All systems reviewed & are unremarkable except as noted in HPI and below Physical Exam Vital Signs: BMI result Body Mass Index 55.9 Const General: cooperative, comfortable and no acute distress Nutritional Appearance: obese (BMI >55.9) Orientation/consciousness: patient oriented x3 HEENT Face and sinus: Yes normal facial exam and Yes face symmetric Mouth: tongue normal Eyes Pupils: Equal, round and reactive pupils present, Pupils normal by confrontation and Pupil accommodation reflex normal Neck Neck: Yes full ROM and Yes supple Resp Effort & Inspection: normal respiratory effort and able to speak in complete sentences Neuro General: patient oriented x3, Normal light touch and pain sensation and CN's II- XI intact bilaterally Cranial nerves: Yes CN's II-XII intact bilaterally, Yes Facial sensation intact/muscles of mastication intact, Yes Equal, round and reactive pupils present, Yes Normal facial strength present, Yes Midline tongue present, Yes Symmetric palate elevation present, Yes Ability to bilaterally rotate head present and Yes Ability to bilaterally elevate shoulders present Motor exam (neuro): 5/5 motor strength present throughout Deep tendon reflexes (DTR's): Right triceps reflex intensity grade: 2+, Left triceps reflex intensity grade: 2+, Rt Biceps (C5, C6): 2+, Left biceps reflex intensity grade: 2+, Right brachioradialis reflex intensity grade: 2+ and Left brachioradialis reflex intensity grade: 2+ Coordination: [id number] test normal Assessment & Plan Assessment & Plan (1) SARTHAK (obstructive sleep apnea): Comment: Moderate degree of sleep apnea with increased severity in REM sleep. The AHI was 22/hr, REM AHI was 42/hr and oxygen gina was 75%. Code(s): G47.33 - Obstructive sleep apnea (adult) (pediatric) Category: Medical Plan Patient is having good clinical effects on CPAP therapy, will continue use and trial various masks with added liners to decrease sensitivity of the front teeth. Trying various mouth gaurds will help to decrease sensitivity with teeth discomfort. Lining the face with vaseline or moisturizer may help to decrease strap tension on the skin and provide an additional barrier. Patient is working with weight management and controlling her caloric intake as she recognizes the co-morbidities with SARTHAK. Coding Level of Care Code Est Pt Level 4 (83696) Diagnoses SARTHAK (obstructive sleep apnea) G47.33
[2024-02-11 15:33] VITALS: BMI 55.9
== END 2024-02-11 16:12 | disposition home or self-care (01) ==
PROVIDERS: PCP Family Medicine; Visit Provider Psychiatry & Neurology Neurology
DX: G47.33 Obstructive sleep apnea (adult) (pediatric) (principal)
CPT/HCPCS: 99214

== ENCOUNTER → 2024-02-11 15:31 | Outpatient (BNVA) | payer OTHER, SELFPAY | PROVIDERS: PCP Family Medicine; Visit Provider Psychiatry & Neurology Neurology ==

== ENCOUNTER 2024-02-12 11:52 | Day surgery (SDC) | payer OTHER, SELFPAY ==
--- NOTE | 2024-02-11 09:58 | P.CONAN_ITS ---
Documented by User: Gregoria Huang NP 02/11/24 10:00 HPI - Anesthesia Eval Consult details Narrative: 58yo F for Right Infrapatellar Saphenous Nerve Peripheral Nerve Stimulator Implant s/p same 12/2023 with MAC Follows [facility] Cardiology for mild , apical diverticulum of LV. Stablea t 09/2023 office visit. Strong FHx of CAD, but negative stress testing for pt. PMFSH Active Problems Active Problems: All Active Problems Elevated LDL cholesterol level (Acute) Yeast infection of the skin (Acute) SARTHAK (obstructive sleep apnea) (Acute) Daytime sleepiness (Acute) Morbid obesity with BMI of 50.0-59.9, adult (Acute) Snoring (Acute) Left knee pain (Acute) Right knee pain (Acute) Hypersomnolence (Acute) Difficulty sleeping (Acute) Bilateral knee pain (Acute) Preop examination (Acute) PAC (premature atrial contraction) (Acute) Preop cardiovascular exam (Acute) Aortic stenosis (Acute) Shortness of breath (Acute) Bacteria in urine (Acute) Patellofemoral arthritis (Acute) Tachycardia (Acute) Lymphedema (Acute) Varicose veins of left lower extremity with inflammation (Acute) AVILES (dyspnea on exertion) (Acute) Knee pain (Acute) Pain and swelling of lower extremity (Acute) Lower extremity edema (Acute) Anxiety with depression (Acute) Dermatitis (Acute) Adult general medical exam (Acute) Diverticulum of left ventricle (Acute) Chest pain (Acute) Left ankle sprain (Acute) Hand swelling (Acute) Ventricular aneurysm (Acute) Back pain (Acute) Chest pressure (Acute) Urticaria (Acute) Allergy (Acute) Bleeding per rectum (Acute) Morbid obesity (Acute) Elevated fasting blood sugar (Acute) Neoplasm of uncertain behavior of skin (Acute) Breast cancer screening by mammogram (Acute) Screening for cervical cancer (Acute) Screening for colon cancer (Acute) Annual physical exam (Acute) Abscess of groin, right (Acute) Low back pain (Acute) Vaginal discharge (Acute) Dysuria (Acute) Family history of coronary arteriosclerosis (Acute) Close exposure to COVID-19 virus (Acute) Allergic rhinitis (Acute) Infected cyst of skin (Acute) Asthma (Acute) Cough (Acute) Past Medical History Medical History Nonrheumatic aortic (valve) stenosis PAC (premature atrial contraction) Sleep apnea Allergic rhinitis Infected cyst of skin Asthma Cough Family History Family History Father Prostate cancer Rectal cancer Mother CVD (cardiovascular disease) Myocardial infarction HTN (hypertension) Paternal Aunt History of ovarian cancer Maternal Uncle History of lung cancer Paternal Aunt History of breast cancer History of bone cancer Paternal Uncle No problems noted. Family history of problems with anesthesia: No Surgical History Surgical History Hx of hysterectomy Hx of removal of cyst History of laparotomy History of Problems with Anesthesia: No Social History Social History Housing: Apartment Do you presently have visiting nurse or other home services: No Alcohol intake: current Alcohol intake frequency: does not drink Patient Tobacco Use Status: Never used Tobacco e-Cigarette/Vaping Use: Never Used Second Hand Smoke Exposure: No Advance Directives: No Advance Directives Information Provided: Yes service: No Current occupational status: employed Current occupational exposures/hazards: No Cognitive needs: No Hearing needs: No Vision needs: No Meds Allergies Allergy/AdvReac Type Severity Reaction Status Date / Time latex Allergy Severe Rash Verified 02/11/24 15:34 benzonatate [Tessalon Perles] Allergy Intermediate Swelling Verified 02/11/24 15:34 Sulfa (Sulfonamide Allergy Intermediate rash Verified 02/11/24 15:34 Antibiotics) amoxicillin Allergy Unknown rash Verified 02/11/24 15:34 tetracycline Allergy Unknown rash Verified 02/11/24 15:34 Home Medications ?Medication ?Instructions ?Recorded ?Confirmed ?Last Taken ?Type aspirin 81 mg tablet,delayed 81 mg PO DAILY 03/15/21 01/10/24 Unknown History release fluticasone propionate 50 spray intranasal 10/10/21 01/10/24 Unknown History mcg/actuation nasal spray,suspension omalizumab 150 mg/mL subcutaneous mg subcut 10/10/21 01/10/24 Unknown History syringe (Xolair) cetirizine 10 mg capsule (Zyrtec) 20 mg PO DAILY 03/12/22 01/10/24 Unknown History famotidine 20 mg tablet 20 mg PO DAILY 03/12/22 01/10/24 Unknown History pantoprazole 40 mg tablet,delayed 40 mg PO DAILY 03/12/22 01/10/24 Unknown History release diphenhydramine HCl 25 mg tablet 25 mg PO ONCE PRN 08/31/22 01/10/24 Unknown History (Benadryl Allergy) turmeric gummies PO 08/31/22 01/10/24 Unknown History epinephrine 0.3 mg/0.3 mL IM 01/02/23 01/10/24 Unknown History injection, auto-injector Exam Pertinent Lab Results Pertinent Lab Results: [facility] Tests 11/22/23 08:47 WBC 8.4 Hgb 13.0 Hct 39.7 Plt Count 276 Sodium 144 Potassium 4.2 Chloride 108 Carbon Dioxide 28 BUN 23 H Creatinine 1.09 Narrative Narrative: EKG 09/2023 Sinus rhythm 100 beats per minute, normal axis, poor R-wave progression, low voltage, QTC 446 milliseconds. ECHO 07/2023 Conclusions: - The left ventricular systolic function is mildly decreased. The visually estimated ejection fraction is between 45-50%. 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 - There is mild aortic valve stenosis. Holter 2022 * Total monitoring time 3 days. * Underlying rhythm is sinus. Average ventricular rate 98/Min. Range 75 to 134/Min. * Frequent supraventricular ectopy. [place] of 6%. Short runs noted. * Rare ventricular ectopy. * No significant pauses or AV blocks. * No patient marker or diary. NM cardiolite stress test 2021 Impression: 1. Normal myocardial perfusion 2. Gated LVEF is 56% 3. Transient ischemic dilatation not present Stress EKG is negative for ischemia Assessment and Plan Assessment Anesthesia Assessment: Chart Reviewed Final Anesthetic Review Family History of Problems with Anesthesia: No History of Problems with Anesthesia: No Documented by User: Rosamaria Quezada MD 02/12/24 12:47 [facility] Past Medical History Medical History Nonrheumatic aortic (valve) stenosis PAC (premature atrial contraction) Sleep apnea Allergic rhinitis Infected cyst of skin Asthma Cough Family History Family History Father Prostate cancer Rectal cancer Mother CVD (cardiovascular disease) Myocardial infarction HTN (hypertension) Paternal Aunt History of ovarian cancer Maternal Uncle History of lung cancer Paternal Aunt History of breast cancer History of bone cancer Paternal Uncle No problems noted. Surgical History Surgical History Hx of hysterectomy Hx of removal of cyst History of laparotomy Social History Social History Housing: Apartment Do you presently have visiting nurse or other home services: No Alcohol intake: current Alcohol intake frequency: does not drink Patient Tobacco Use Status: Never used Tobacco e-Cigarette/Vaping Use: Never Used Second Hand Smoke Exposure: No Advance Directives: No Advance Directives Information Provided: Yes service: No Current occupational status: employed Current occupational exposures/hazards: No Cognitive needs: No Hearing needs: No Vision needs: No Meds Allergies Allergy/AdvReac Type Severity Reaction Status Date / Time latex Allergy Severe Rash Verified 02/11/24 15:34 benzonatate [Tessalon Perles] Allergy Intermediate Swelling Verified 02/11/24 15:34 Sulfa (Sulfonamide Allergy Intermediate rash Verified 02/11/24 15:34 Antibiotics) amoxicillin Allergy Unknown rash Verified 02/11/24 15:34 tetracycline Allergy Unknown rash Verified 02/11/24 15:34 Home Medications ?Medication ?Instructions ?Recorded ?Confirmed ?Last Taken ?Type aspirin 81 mg tablet,delayed 81 mg PO DAILY 03/15/21 01/10/24 Unknown History release fluticasone propionate 50 spray intranasal 10/10/21 01/10/24 Unknown History mcg/actuation nasal spray,suspension omalizumab 150 mg/mL subcutaneous mg subcut 10/10/21 01/10/24 Unknown History syringe (Xolair) cetirizine 10 mg capsule (Zyrtec) 20 mg PO DAILY 03/12/22 01/10/24 Unknown History famotidine 20 mg tablet 20 mg PO DAILY 03/12/22 01/10/24 Unknown History pantoprazole 40 mg tablet,delayed 40 mg PO DAILY 03/12/22 01/10/24 Unknown History release diphenhydramine HCl 25 mg tablet 25 mg PO ONCE PRN 08/31/22 01/10/24 Unknown History (Benadryl Allergy) turmeric gummies PO 08/31/22 01/10/24 Unknown History epinephrine 0.3 mg/0.3 mL IM 01/02/23 01/10/24 Unknown History injection, auto-injector Exam Airway Mallampati Class: II (caps, implant lateral) TM Dist: >3cm Neck ROM: Full Heart: rrr Lungs: cta Assessment and Plan Assessment Anesthesia Assessment: Anesthesia Plan Discussed Final Anesthetic Review NPO: Yes ASA Class: II Final Preanesthetic Review: No Changes in Pt Med Stat, Meds/Allgs Chart Reviewed and Consent Obtained/Reviewed Patient Risk: Intermediate Procedure Risk: Low Anesthetic Plan Anesthetic Plan: MAC: Disposition: Standard PACU
[2024-02-12 12:59] VITALS: BP 148/94; PULSE 77; RESP 16; TEMP 36.6; O2SAT 96; BMI 56.7
--- NOTE | 2024-02-12 13:27 | MHC.SHP ---
Pre-Procedural Eval Section A - 24 Hr Update-Section A only Date of Service: 02/12/24 The patient is an INPATIENT: No Changes since office visit: Yes Patient answered all questions The patient has been examined within 24 hours of the surgical procedure. The History & Physical has been completed within 30 days and I have reviewed it.: No Section B - Complete if H&P > 30 days Chief Complaint: Pain in right knee,other chronic pain, Relevant Family History (Specify if Yes): No Relevant Social History: None Present Medications: see Short Stay Collaborative assessment Medical History: No relevant PMH History of Previous Operations: No relevant previous surgery Allergies: Allergies Allergy/AdvReac Type Severity Reaction Status Date / Time latex Allergy Severe Rash Verified 02/11/24 15:34 amoxicillin Allergy Intermediate rash Verified 02/12/24 12:54 benzonatate [Tessalon Perles] Allergy Intermediate Swelling Verified 02/11/24 15:34 Sulfa (Sulfonamide Allergy Intermediate rash Verified 02/11/24 15:34 Antibiotics) tetracycline Allergy Intermediate rash Verified 02/12/24 12:54 Review of Systems Sugical H&P ROS: Negative: Constitution, Cardiovascular and Respiratory Exam Surgical H&P Exam: Normal: HEENT, Normal: Heart and Normal: Lungs Plan Diagnosis/Plan: Unchanged I have reviewed the history and physical and performed a pertinent physical examination on my patient. No changes have occurred unless specified. Time Spent With Patient Time: Total time managing care of this patient today ____ minutes.
[2024-02-12] MEDS: Lactated Ringers 1,000 ML 100 ML IVCONT (13:28)
--- NOTE | 2024-02-12 13:36 | PC.NURSE ---
Patient in preop. Dr. Saldana at bedside. Left lower extremity penn area red. Patient states I get cellulitis often . No new orders at this time. May proceed with surgery. Per Dr. Saldana, PO antibiotics to be ordered postop.
[2024-02-12 14:51] LABS: MRSA Nasal PCR NEGATIVE (Negative); SA Nasal PCR POSITIVE (Negative)
[2024-02-12 15:12] VITALS: BP 122/59; PULSE 87; RESP 16; TEMP 36.2; O2SAT 97
[2024-02-12 15:27] VITALS: BP 144/75; PULSE 84; RESP 18; O2SAT 99
[2024-02-12 15:42] VITALS: BP 149/84; PULSE 72; RESP 12; TEMP 36.3; O2SAT 99
--- NOTE | 2024-02-12 15:52 | P.BOP_ITS ---
Brief Operative Note Date of Service: 02/12/24 Pre-op diagnosis: Chronic knee pain Post-op diagnosis: same Procedure: Infrapatellar saphenous nerve stimulator implant, right Implants: Curonix peripheral nerve stimulation system Surgeon: Manish Saldana MD Anesthesia: MAC Was an Development And Planning Engineer used for this Procedure?: No Estimated blood loss (mL): 10 Pathology: none sent Condition: stable Disposition: PACU
--- NOTE | 2024-02-12 15:53 | P.OP_ITS ---
Operative Note Operative Note Date of Service: 02/12/24 Narrative: Preoperative diagnosis: Chronic knee pain, right Postoperative diagnosis: Same Procedure: Infrapatellar saphenous nerve stimulation lead (Curonix) implant, right After obtaining written consent, pre-procedure blood pressure and heart rate were stable and recorded in the nursing record. Standard monitors were applied. A peripheral IV was started. Antibiotics, clindamycin 900 mg, were given prior to the start of the procedure. The patient was positioned in supine position and sedated. The right knee area was widely prepped with chloraprep and draped in sterile fashion. Using a skin marker, a 1 cm saggital line was marked over the needle entry location. The skin at the insertion site was anesthetized with 0.5% lidocaine. A small stab was made with a scalpel to allow for easy insertion of the introducer. The introducer was advanced subcutaneously along the length of the medial border of the right tibia. The needle was placed just medial to the infrapatellar portion of the tibial plateau. AP and lateral views of the fluoroscopy were used to confirm adequate placement. The electrode array was passed through the introducer. Fluoroscopy was used to confirm appropriate lead position. The patient was woken up and paresthesia testing was conducted to confirm adequate coverage. The patient was then resedated. With the needle covering the lead, the insertion site was bluntly dissected with curved scissors and a 0 Tycron suture was placed across the floor of the incision site to anchor the lead. The needle was then removed. The lead was then anchored down to the tissue with the previously placed Tycron suture. Another stab incision was then made 1 inch medial to the needle insertion site and the lead was tunneled to this point to perform a wanted to degree turn up towards the knee. A pocket site was then infiltrated with local anesthesia and an 11 blade was used to make a 2 cm incision. The incision was dissected with a combination of electrocautery and curved scissors. The lead was then tunneled to the site and excess lead was coiled. The coil was tied together using 0 silk ties. The coil lead was then placed in the pocket and all incision sites were irrigated with vancomycin solution. All incisions were closed with 2-0 silk, followed by bacitracin, gauze and Tegaderm dressing. The patient tolerated the procedure well. No complications were encountered. Fol lowing the procedure the patient's vital signs were stable. In the PACU, stimulation was performed and good coverage was obtained. The patient was discharged home in good condition with post-procedural instructions, including a course of cephalexin 500 mg q.i.d. to be taken for 1 week for infection prophylaxis.
== END 2024-02-12 16:13 | disposition home or self-care (01) ==
PROVIDERS: Registered Nurse Emergency; PCP Family Medicine; Visit Provider Internal Medicine
PROC: (CPT 64555; principal; 2024-02-12 13:40)
DX: M25.561 Pain in right knee (principal); G89.29 Other chronic pain; Z79.82 Long term (current) use of aspirin; Z79.85 Long-term (current) use of injectable non-insulin antidiabetic drugs; Z79.899 Other long term (current) drug therapy; Z88.1 Allergy status to other antibiotic agents; Z88.2 Allergy status to sulfonamides; Z91.040 Latex allergy status; J45.909 Unspecified asthma, uncomplicated; Z79.51 Long term (current) use of inhaled steroids
CPT/HCPCS: 64555; 87640; 87641; C1816; J0736; J2003; J2405; J2704; J3010; J3370

== ENCOUNTER → 2024-02-12 11:52 | Outpatient (BNV) | payer OTHER, SELFPAY | PROVIDERS: PCP Family Medicine; Visit Provider Internal Medicine | DX: M25.561 Pain in right knee (principal) | CPT/HCPCS: 64555 ==

== ENCOUNTER 2024-02-19 09:17 | Outpatient (AMB) | payer OTHER, SELFPAY ==
--- NOTE | 2024-02-19 09:20 | MHC.OFFVIS ---
Vital Signs 02/19/24 09:23 Height 5 ft 7 in Weight 260 lb BMI 40.7 BP 175/88 H Blood Pressure Location Lt radial Position Sitting Respiration 16 Pulse 87 Pulse Source Pulse Oximeter Pulse Oximetry (%) 96 Oxygen Delivery Method Room Air Intake Visit Reasons: S/p Implant of Curonix PNS Allergies latex Allergy (Severe, Verified 02/19/24 09:24) Rash amoxicillin Allergy (Intermediate, Verified 02/19/24 09:24) rash benzonatate [Tessalon Perles] Allergy (Intermediate, Verified 02/19/24 09:24) Swelling Sulfa (Sulfonamide Antibiotics) Allergy (Intermediate, Verified 02/19/24 09:24) rash tetracycline Allergy (Intermediate, Verified 02/19/24 09:24) rash Medication List - Last Reconciled 02/19/24 by Jasmyn Vizcarra LPN albuterol sulfate 90 mcg/actuation (ProAir HFA) 2 puffs inhalation Q4-6H PRN 30 days aspirin 81 mg PO DAILY bupropion HCl SR 200 mg PO QAM 90 days celecoxib (Celebrex) 200 mg PO BID 30 days cephalexin 750 mg PO QID cetirizine (Zyrtec) 20 mg PO DAILY clotrimazole 1% 1 appl topical BID 2 weeks diphenhydramine HCl (Benadryl Allergy) 25 mg PO ONCE PRN epinephrine IM famotidine 20 mg PO DAILY fluticasone propionate 50 mcg/actuation 1 spray intranasal DAILY montelukast 10 mg PO DAILY omalizumab (Xolair) 150 mg subcut DIRECTED pantoprazole 40 mg PO DAILY tramadol 50 mg PO Q8H PRN [turmeric gummies 2 gummies PO DAILY] HPI HPI S/p Implant of Curonix PNS: Details: 58-year-old female who presents today to the office for a status post right infrapatellar saphenous stimulator implant with Curonix device. The patient reports more than 75 % relief following the procedure. She is doing better. She reports feeling some stinging sensation in the lead insertion area. She is able to walk upstairs and do most of her ADLs without any pain. She is inquiring if she can take a shower now. She has been taking the antibiotic that was prescribed postoperatively. Past Procedures: 02/12/24: Infrapatellar saphenous nerve stimulation lead (Curonix) implant, right: More than 75% initial relief. 01/01/24: Percutaneous trial of peripheral nerve stimulation of right infrapatellar saphenous nerve: 80% relief. 02/18/23: Left diagnostic infrapatellar saphenous nerve block, ultrasound guided: 90% relief for two days. [facility] Medical History (Updated 02/19/24 @ 11:40 by Manish Saldana MD) Nonrheumatic aortic (valve) stenosis PAC (premature atrial contraction) Sleep apnea Allergic rhinitis Infected cyst of skin Asthma Cough Surgical History (Updated 02/12/24 @ 12:[address] RN) H/O knee surgery Hx of hysterectomy Hx of removal of cyst History of laparotomy Family History Father Prostate cancer Rectal cancer Mother CVD (cardiovascular disease) Myocardial infarction HTN (hypertension) Paternal Aunt History of ovarian cancer Maternal Uncle History of lung cancer Paternal Aunt History of breast cancer History of bone cancer Paternal Uncle No problems noted. Social History Household Members Other:: roommate Housing: Apartment Are you a primary skin care instructor to a significant other at home: No Do you presently have visiting nurse or other home services: No Alcohol intake: current Alcohol intake frequency: a few times a week Patient Tobacco Use Status: Never used Tobacco e-Cigarette/Vaping Use: Never Used Second Hand Smoke Exposure: No service: No Current occupational status: employed Current occupational exposures/hazards: No Cognitive needs: No Hearing needs: No Vision needs: No Review of Systems Const All systems reviewed & are unremarkable except as noted in HPI and below Physical Exam Vital Signs: Last Vital Signs Pulse 87 02/19/24 09:23 Resp 16 02/19/24 09:23 BP 175/88 H 02/19/24 09:23 Pulse Ox 96 02/19/24 09:23 Oxygen Delivery Method Room Air 02/19/24 09:23 BMI result Body Mass Index 40.7 General: Appears afebrile. Alert and oriented. Mood and affect appropriate. Follows and participates in conversation appropriately. Respiratory effort is unlabored. Able to transition from sit to stand unassisted. Ambulates with bilaterally normal heel strike and toe off. Incisions are clean, dry and intact. Sutures were left in place today. Results Reviewed Results Reviewed: No imaging is available for review. Assessment & Plan Assessment & Plan (1) Right knee pain: Comment: Status post infrapatellar saphenous nerve stimulator implant Code(s): M25.561 - Pain in right knee Category: Medical Qualifiers: Chronicity: chronic Qualified Code(s): M25.561 - Pain in right knee; G89.29 - Other chronic pain Plan The wounds were redressed in the office today. The patient was cleared to shower with instructions to cover the incision sites with occlusive dressing to help keep dry. Also provided supplies were dressing changes as needed over the next few days. Follow up on Saturday for suture removal. Scribed for Dr. Saldana by Mis medical physics professor, on 02/19/2024. I, Dr. Saldana, have personally reviewed and agree with the information entered by the scribe. Coding Level of Care Code Est Pt Level 3 (42446) Diagnoses Chronic pain of right knee M25.561; G89.29 Chronicity: chronic
[2024-02-19 09:23] VITALS: BP 175/88; PULSE 87; RESP 16; O2SAT 96; BMI 40.7
== END 2024-02-19 09:57 | disposition home or self-care (01) ==
PROVIDERS: PCP Family Medicine; Visit Provider Internal Medicine
DX: M25.561 Pain in right knee (principal); G89.29 Other chronic pain
CPT/HCPCS: 99024

== ENCOUNTER 2024-02-24 11:07 | Outpatient (AMB) | payer OTHER, SELFPAY ==
--- NOTE | 2024-02-24 11:10 | A.OFFVIS_ITS ---
Vital Signs 02/24/24 11:11 Height 5 ft 7 in Weight 260 lb BMI 40.7 BP 164/70 H Blood Pressure Location Lt radial Position Sitting Respiration 16 Pulse 102 H Pulse Source Pulse Oximeter Pulse Oximetry (%) 98 Oxygen Delivery Method Room Air Intake Visit Reasons: S/p (R) Curonix PNS Implant 02/12/24 (2nd Visit) Allergies latex Allergy (Severe, Verified 02/24/24 11:12) Rash amoxicillin Allergy (Intermediate, Verified 02/24/24 11:12) rash benzonatate [Tessalon Perles] Allergy (Intermediate, Verified 02/24/24 11:12) Swelling Sulfa (Sulfonamide Antibiotics) Allergy (Intermediate, Verified 02/24/24 11:12) rash tetracycline Allergy (Intermediate, Verified 02/24/24 11:12) rash Medication List - Last Reconciled 02/24/24 by Jasmyn Vizcarra LPN albuterol sulfate 90 mcg/actuation (ProAir HFA) 2 puffs inhalation Q4-6H PRN 30 days aspirin 81 mg PO DAILY bupropion HCl SR 200 mg PO QAM 90 days celecoxib (Celebrex) 200 mg PO BID 30 days cephalexin 750 mg PO QID cetirizine (Zyrtec) 20 mg PO DAILY clotrimazole 1% 1 appl topical BID 2 weeks diphenhydramine HCl (Benadryl Allergy) 25 mg PO ONCE PRN epinephrine IM famotidine 20 mg PO DAILY fluticasone propionate 50 mcg/actuation 1 spray intranasal DAILY montelukast 10 mg PO DAILY omalizumab (Xolair) 150 mg subcut DIRECTED pantoprazole 40 mg PO DAILY tramadol 50 mg PO Q8H PRN [turmeric gummies 2 gummies PO DAILY] HPI HPI S/p (R) Curonix PNS Implant 02/12/24 (2nd Visit): Details: 58-year-old female who presents today to the office for a status post right Curonix peripheral nerve stimulator. The patient reports 75% relief following the procedure. She has good positive relief from the device. She has no concerns today. She inquired about taking showering. Past Procedures: 02/12/24: Infrapatellar saphenous nerve stimulation lead (Curonix) implant, right: More than 75% initial relief. 01/01/24: Percutaneous trial of peripheral nerve stimulation of right infrap atellar saphenous nerve: 80% relief. 02/18/23: Left diagnostic infrapatellar saphenous nerve block, ultrasound guided: 90% relief for two days. [facility] Medical History (Updated 02/19/24 @ 11:40 by Manish Saldana MD) Nonrheumatic aortic (valve) stenosis PAC (premature atrial contraction) Sleep apnea Allergic rhinitis Infected cyst of skin Asthma Cough Surgical History (Updated 02/12/24 @ 12:[address] RN) H/O knee surgery Hx of hysterectomy Hx of removal of cyst History of laparotomy Family History Father Prostate cancer Rectal cancer Mother CVD (cardiovascular disease) Myocardial infarction HTN (hypertension) Paternal Aunt History of ovarian cancer Maternal Uncle History of lung cancer Paternal Aunt History of breast cancer History of bone cancer Paternal Uncle No problems noted. Social History Household Members Other:: roommate Housing: Apartment Are you a primary certified social workers in health care to a significant other at home: No Do you presently have visiting nurse or other home services: No Alcohol intake: current Alcohol intake frequency: a few times a week Patient Tobacco Use Status: Never used Tobacco e-Cigarette/Vaping Use: Never Used Second Hand Smoke Exposure: No service: No Current occupational status: employed Current occupational exposures/hazards: No Cognitive needs: No Hearing needs: No Vision needs: No Review of Systems Const All systems reviewed & are unremarkable except as noted in HPI and below Physical Exam Vital Signs: Last Vital Signs Pulse 102 H 02/24/24 11:11 Resp 16 02/24/24 11:11 BP 164/70 H 02/24/24 11:11 Pulse Ox 98 02/24/24 11:11 Oxygen Delivery Method Room Air 02/24/24 11:11 BMI result Body Mass Index 40.7 General: Appears afebrile. Alert and oriented. Mood and affect appropriate. Follows and participates in conversation appropriately. Respiratory effort is unlabored. Able to transition from sit to stand unassisted. Ambulates with bilaterally normal heel strike and toe off. Wounds are healing well. There were redressed in the clinic today. Results Reviewed Results Reviewed: No imaging is available for review. Assessment & Plan Assessment & Plan (1) Left knee pain: Code(s): M25.562 - Pain in left knee Category: Medical Qualifiers: Chronicity: chronic Qualified Code(s): M25.562 - Pain in left knee; G89.29 - Other chronic pain (2) Right knee pain: Comment: Status post infrapatellar saphenous nerve stimulator implant Code(s): M25.561 - Pain in right knee Category: Medical Qualifiers: Chronicity: chronic Qualified Code(s): M25.561 - Pain in right knee; G89.29 - Other chronic pain Plan Continue nerve stimulation as needed. She reports good pain relief. I redressed her wounds today. The sutures were removed without problems. I recommended that she refrain from further showering for an additional 2 days. She is tentatively planned for a trial on the left side on 03/04/2024. Discussed pre- and postoperative care plan for the left side given significant lower extremity edema and superficial skin changes. Scribed for Dr. Saldana by Clint Kennedy, medical office specialist, on 02/24/2024. I, Dr. Saldana, have personally reviewed and agree with the information entered by the scribe. Coding Level of Care Code Est Pt Level 4 (46732) Diagnoses Chronic pain of left knee M25.562; G89.29 Chronicity: chronic Chronic pain of right knee M25.561; G89.29 Chronicity: chronic
[2024-02-24 11:11] VITALS: BP 164/70; PULSE 102; RESP 16; O2SAT 98; BMI 40.7
== END 2024-02-24 11:33 | disposition home or self-care (01) ==
PROVIDERS: PCP Family Medicine; Visit Provider Internal Medicine
DX: M25.562 Pain in left knee (principal); G89.29 Other chronic pain; M25.561 Pain in right knee
CPT/HCPCS: 99214

== ENCOUNTER → 2024-02-24 11:07 | Outpatient (BNVA) | payer OTHER, SELFPAY | PROVIDERS: PCP Family Medicine; Visit Provider Internal Medicine ==

== ENCOUNTER 2024-03-04 10:58 | Day surgery (SDC) | payer OTHER, SELFPAY ==
--- NOTE | 2024-03-03 09:28 | P.CONAN_ITS ---
Documented by User: Gregoria Huang NP 03/03/24 09:31 HPI - Anesthesia Eval Consult details Narrative: 59yo F for Left Trial of Left Infrapatellar Saphenous Nerve Peripheral Nerve Stimulator s/p Right Infrapatellar Saphenous Nerve Peripheral Nerve Stimulator Implant 01/2024 with TIVA s/p same 12/2023 with MAC Follows [facility] Cardiology for mild , apical diverticulum of LV. Stable at 09/2023 office visit. Strong FHx of CAD, but negative stress testing for pt. PMFSH Active Problems Active Problems: All Active Problems Elevated LDL cholesterol level (Acute) Yeast infection of the skin (Acute) SARTHAK (obstructive sleep apnea) (Acute) Daytime sleepiness (Acute) Morbid obesity with BMI of 50.0-59.9, adult (Acute) Snoring (Acute) Left knee pain (Acute) Right knee pain (Acute) Hypersomnolence (Acute) Difficulty sleeping (Acute) Bilateral knee pain (Acute) Preop examination (Acute) PAC (premature atrial contraction) (Acute) Preop cardiovascular exam (Acute) Aortic stenosis (Acute) Shortness of breath (Acute) Bacteria in urine (Acute) Patellofemoral arthritis (Acute) Tachycardia (Acute) Lymphedema (Acute) Varicose veins of left lower extremity with inflammation (Acute) AVILES (dyspnea on exertion) (Acute) Knee pain (Acute) Pain and swelling of lower extremity (Acute) Lower extremity edema (Acute) Anxiety with depression (Acute) Dermatitis (Acute) Adult general medical exam (Acute) Diverticulum of left ventricle (Acute) Chest pain (Acute) Left ankle sprain (Acute) Hand swelling (Acute) Ventricular aneurysm (Acute) Back pain (Acute) Chest pressure (Acute) Urticaria (Acute) Allergy (Acute) Bleeding per rectum (Acute) Morbid obesity (Acute) Elevated fasting blood sugar (Acute) Neoplasm of uncertain behavior of skin (Acute) Breast cancer screening by mammogram (Acute) Screening for cervical cancer (Acute) Screening for colon cancer (Acute) Annual physical exam (Acute) Abscess of groin, right (Acute) Low back pain (Acute) Vaginal discharge (Acute) Dysuria (Acute) Family history of coronary arteriosclerosis (Acute) Close exposure to COVID-19 virus (Acute) Allergic rhinitis (Acute) Infected cyst of skin (Acute) Asthma (Acute) Cough (Acute) Past Medical History Medical History (Updated 02/19/24 @ 11:40 by Manish Saldana MD) Nonrheumatic aortic (valve) stenosis PAC (premature atrial contraction) Sleep apnea Allergic rhinitis Infected cyst of skin Asthma Cough Family History Family History Father Prostate cancer Rectal cancer Mother CVD (cardiovascular disease) Myocardial infarction HTN (hypertension) Paternal Aunt History of ovarian cancer Maternal Uncle History of lung cancer Paternal Aunt History of breast cancer History of bone cancer Paternal Uncle No problems noted. Family history of problems with anesthesia: No Surgical History Surgical History (Updated 03/03/24 @ 09:20 by Tete Lujan RN) Hx of right knee surgery H/O knee surgery Hx of hysterectomy Hx of removal of cyst History of laparotomy History of Problems with Anesthesia: No Social History Social History Household Members Other:: roommate Housing: Apartment Are you a primary customer care coordinator to a significant other at home: No Do you presently have visiting nurse or other home services: No Alcohol intake: current Alcohol intake frequency: does not drink Patient Tobacco Use Status: Never used Tobacco e-Cigarette/Vaping Use: Never Used Second Hand Smoke Exposure: No Use of substances other than those prescribed or required for medical reasons: No Have you been hit, kicked, punched, or otherwise hurt by someone within the past year? If so, by whom?: No Are you DNR?: No Advance Directives: No Advance Directives Information Provided: Yes Advance Directives on File: No Recently lost weight without trying: No Eating poorly because of decreased appetite: No Nutrition Risks: No Nutritional Risk Patient : No : No Poor oral hygiene: No service: No Current occupational status: employed Current occupational exposures/hazards: No Cognitive needs: No Hearing needs: No Vision needs: No Meds Allergies Allergy/AdvReac Type Severity Reaction Status Date / Time latex Allergy Severe Rash Verified 02/24/24 11:12 amoxicillin Allergy Intermediate rash Verified 02/24/24 11:12 benzonatate [Tessalon Perles] Allergy Intermediate Swelling Verified 02/24/24 11:12 Sulfa (Sulfonamide Allergy Intermediate rash Verified 02/24/24 11:12 Antibiotics) tetracycline Allergy Intermediate rash Verified 02/24/24 11:12 Home Medications ?Medication ?Instructions ?Recorded ?Confirmed ?Last Taken ?Type aspirin 81 mg tablet,delayed 81 mg PO DAILY 03/15/21 02/24/24 02/05/24 History release fluticasone propionate 50 1 spray intranasal DAILY 10/10/21 02/24/24 Unknown History mcg/actuation nasal spray,suspension omalizumab 150 mg/mL subcutaneous 150 mg subcut DIRECTED 10/10/21 02/24/24 Unknown History syringe (Xolair) cetirizine 10 mg capsule (Zyrtec) 20 mg PO DAILY 03/12/22 02/24/24 Unknown History famotidine 20 mg tablet 20 mg PO DAILY 03/12/22 02/24/24 Unknown History pantoprazole 40 mg tablet,delayed 40 mg PO DAILY 03/12/22 02/24/24 Unknown History release diphenhydramine HCl 25 mg tablet 25 mg PO ONCE PRN Allergic Reaction 08/31/22 02/24/24 Unknown History (Benadryl Allergy) turmeric gummies 2 gummy PO DAILY 08/31/22 02/24/24 02/05/24 History epinephrine 0.3 mg/0.3 mL IM 01/02/23 02/24/24 Unknown History injection, auto-injector Exam Pertinent Lab Results Pertinent Lab Results: [facility] Tests 11/22/23 08:47 WBC 8.4 Hgb 13.0 Hct 39.7 Plt Count 276 Sodium 144 Potassium 4.2 Chloride 108 Carbon Dioxide 28 BUN 23 H Creatinine 1.09 Narrative Narrative: EKG 09/2023 Sinus rhythm 100 beats per minute, normal axis, poor R-wave progression, low voltage, QTC 446 milliseconds. ECHO 07/2023 Conclusions: - The left ventricular systolic function is mildly decreased. The visually estimated ejection fraction is between 45-50%. 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 - There is mild aortic valve stenosis. Holter 2022 * Total monitoring time 3 days. * Underlying rhythm is sinus. Average ventricular rate 98/Min. Range 75 to 134/Min. * Frequent supraventricular ectopy. [place] of 6%. Short runs noted. * Rare ventricular ectopy. * No significant pauses or AV blocks. * No patient marker or diary. NM cardiolite stress test 2021 Impression: 1. Normal myocardial perfusion 2. Gated LVEF is 56% 3. Transient ischemic dilatation not present Stress EKG is negative for ischemia Assessment and Plan Assessment Anesthesia Assessment: Chart Reviewed Final Anesthetic Review Family History of Problems with Anesthesia: No History of Problems with Anesthesia: No Documented by User: Rosamaria Quezada MD 03/04/24 13:36 [facility] Past Medical History Medical History (Updated 02/19/24 @ 11:40 by Manish Saldana MD) Nonrheumatic aortic (valve) stenosis PAC (premature atrial contraction) Sleep apnea Allergic rhinitis Infected cyst of skin Asthma Cough Family History Family History Father Prostate cancer Rectal cancer Mother CVD (cardiovascular disease) Myocardial infarction HTN (hypertension) Paternal Aunt History of ovarian cancer Maternal Uncle History of lung cancer Paternal Aunt History of breast cancer History of bone cancer Paternal Uncle No problems noted. Surgical History Surgical History (Updated 03/03/24 @ 09:20 by Tete Lujan RN) Hx of right knee surgery H/O knee surgery Hx of hysterectomy Hx of removal of cyst History of laparotomy Social History Social History Household Members Other:: roommate Housing: Apartment Are you a primary customer care coordinator to a significant other at home: No Do you presently have visiting nurse or other home services: No Alcohol intake: current Alcohol intake frequency: does not drink Patient Tobacco Use Status: Never used Tobacco e-Cigarette/Vaping Use: Never Used Second Hand Smoke Exposure: No Use of substances other than those prescribed or required for medical reasons: No Have you been hit, kicked, punched, or otherwise hurt by someone within the past year? If so, by whom?: No Are you DNR?: No Advance Directives: No Advance Directives Information Provided: Yes Advance Directives on File: No Recently lost weight without trying: No Eating poorly because of decreased appetite: No Nutrition Risks: No Nutritional Risk Patient : No : No Poor oral hygiene: No service: No Current occupational status: employed Current occupational exposures/hazards: No Cognitive needs: No Hearing needs: No Vision needs: No Meds Allergies Allergy/AdvReac Type Severity Reaction Status Date / Time latex Allergy Severe Rash Verified 02/24/24 11:12 amoxicillin Allergy Intermediate rash Verified 02/24/24 11:12 benzonatate [Tessalon Perles] Allergy Intermediate Swelling Verified 02/24/24 11:12 Sulfa (Sulfonamide Allergy Intermediate rash Verified 02/24/24 11:12 Antibiotics) tetracycline Allergy Intermediate rash Verified 02/24/24 11:12 Home Medications ?Medication ?Instructions ?Recorded ?Confirmed ?Last Taken ?Type aspirin 81 mg tablet,delayed 81 mg PO DAILY 03/15/21 02/24/24 02/05/24 History release fluticasone propionate 50 1 spray intranasal DAILY 10/10/21 02/24/24 Unknown History mcg/actuation nasal spray,suspension omalizumab 150 mg/mL subcutaneous 150 mg subcut DIRECTED 10/10/21 02/24/24 Unknown History syringe (Xolair) cetirizine 10 mg capsule (Zyrtec) 20 mg PO DAILY 03/12/22 02/24/24 Unknown History famotidine 20 mg tablet 20 mg PO DAILY 03/12/22 02/24/24 Unknown History pantoprazole 40 mg tablet,delayed 40 mg PO DAILY 03/12/22 02/24/24 Unknown History release diphenhydramine HCl 25 mg tablet 25 mg PO ONCE PRN Allergic Reaction 08/31/22 02/24/24 Unknown History (Benadryl Allergy) turmeric gummies 2 gummy PO DAILY 08/31/22 02/24/24 02/05/24 History epinephrine 0.3 mg/0.3 mL IM 01/02/23 02/24/24 Unknown History injection, auto-injector Exam Airway Mallampati Class: II (implant top left lateral, caps laterally) TM Dist: >3cm Neck ROM: Full Heart: rrr Lungs: cta Assessment and Plan Assessment Anesthesia Assessment: Anesthesia Plan Discussed Final Anesthetic Review NPO: Yes ASA Class: III Final Preanesthetic Review: No Changes in Pt Med Stat, Meds/Allgs Chart Reviewed and Consent Obtained/Reviewed Patient Risk: Intermediate Procedure Risk: Low Anesthetic Plan Anesthetic Plan: MAC: Disposition: Standard PACU
--- NOTE | ~2024-03-04 | FL_ITS ---
EXAMINATION: FLUORO GUIDANCE IN OR CLINICAL INFORMATION: Left infrapatellar trial. COMPARISON: None available. TECHNIQUE: Fluoroscopy supervised by: Dr. Manish Saldana. Fluoroscopy time: 00 minutes and 30.6 seconds. Cumulative Dose: 2.0505 mGy. DAP: 0.6315 Gy-cm2 (edmondson-centimeter squared). Images: 2. FINDINGS: A stimulating wire is seen medial to the proximal tibial metaphysis. FL/FL guidance in OR IMPRESSION: Fluoroscopy during procedure. Please see procedure report for additional information. Electronically signed by: Terrell Ferguson MD 04/29/2024 04:25 PM [facility]
[2024-03-04] MEDS: Lactated Ringers 1,000 ML 100 ML IVCONT (12:02)
[2024-03-04 12:06] VITALS: BP 148/88; PULSE 89; RESP 16; TEMP 37.1; O2SAT 97
[2024-03-04 12:07] VITALS: BMI 40.7
--- NOTE | 2024-03-04 13:23 | MHC.SHP ---
Pre-Procedural Eval Section A - 24 Hr Update-Section A only Date of Service: 03/04/24 The patient is an INPATIENT: No Changes since office visit: Yes Patient answered all questions The patient has been examined within 24 hours of the surgical procedure. The History & Physical has been completed within 30 days and I have reviewed it.: Yes Section B - Complete if H&P > 30 days Chief Complaint: Chronic left knee pain Relevant Family History (Specify if Yes): No Relevant Social History: None Present Medications: see Short Stay Collaborative assessment Medical History: No relevant PMH History of Previous Operations: No relevant previous surgery Allergies: Allergies Allergy/AdvReac Type Severity Reaction Status Date / Time latex Allergy Severe Rash Verified 02/24/24 11:12 amoxicillin Allergy Intermediate rash Verified 02/24/24 11:12 benzonatate [Tessalon Perles] Allergy Intermediate Swelling Verified 02/24/24 11:12 Sulfa (Sulfonamide Allergy Intermediate rash Verified 02/24/24 11:12 Antibiotics) tetracycline Allergy Intermediate rash Verified 02/24/24 11:12 Review of Systems Sugical H&P ROS: Negative: Constitution, Cardiovascular and Respiratory Exam Surgical H&P Exam: Normal: HEENT and Normal: Heart and Significant Findings: Lungs (RLE surgical wound infection) Plan Diagnosis/Plan: Unchanged I have reviewed the history and physical and performed a pertinent physical examination on my patient. No changes have occurred unless specified. Time Spent With Patient Time: Total time managing care of this patient today ____ minutes.
--- NOTE | 2024-03-04 13:24 | P.BOP_ITS ---
Brief Operative Note Date of Service: 03/04/24 Pre-op diagnosis: Chronic left knee pain Post-op diagnosis: same Procedure: Left infrapatellar saphenous nerve stimulator trial Implants: Curonix PNS trial lead Surgeon: Manish Saldana MD Anesthesia: MAC Was an Compressor Technician used for this Procedure?: No Estimated blood loss (mL): 5 Pathology: none sent Condition: stable Disposition: PACU
--- NOTE | 2024-03-04 13:24 | P.OP_ITS ---
Operative Note Operative Note Date of Service: 03/04/24 Narrative: Preoperative diagnosis: Chronic knee pain, left Postoperative diagnosis: Same Procedure: Infrapatellar saphenous nerve stimulation lead (Curonix) trial, LEFT After obtaining written consent, pre-procedure blood pressure and heart rate were stable and recorded in the nursing record. Standard monitors were applied. A peripheral IV was started. Antibiotics, clindamycin 900 mg, were given prior t o the start of the procedure. The patient was positioned in supine position and sedated. The right knee area was widely prepped with chloraprep and draped in sterile fashion. Using a skin marker, a 1 cm saggital line was marked over the needle entry location. The skin at the insertion site was anesthetized with 0.5% lidocaine. A small stab was made with a scalpel to allow for easy insertion of the introducer. The introducer was advanced subcutaneously along the length of the medial border of the left tibia. The needle was placed just medial to the infrapatellar portion of the tibial plateau. AP and lateral views of the fluoroscopy were used to confirm adequate placement. The electrode array was passed through the introducer. Fluoroscopy was used to confirm appropriate lead position. The patient was woken up and paresthesia testing was conducted to confirm adequate coverage. The patient was then resedated. The lead was secured using benzoin, steri-strips and tegaderms. The patient tolerated the procedure well. No complications were encountered. Following the procedure the patient's vital signs were stable. In the PACU, stimulation was performed and good coverage was obtained. The patient was discharged home in good condition with post-procedural instructions. Time Out: Immediately prior to the procedure, the following was verbally confirmed that there is a signed consent form and that the correct patient, planned procedure, site and side are consistent with documentation and that necessary equipment and/or blood products are available prior to the start of the case.
[2024-03-04 13:29] LABS: MRSA Nasal PCR NEGATIVE (Negative); SA Nasal PCR POSITIVE (Negative)
[2024-03-04 15:00] VITALS: BP 141/54; PULSE 91; RESP 16; TEMP 36.2; O2SAT 97
[2024-03-04 15:15] VITALS: BP 124/88; PULSE 75; RESP 20; TEMP 36.2; O2SAT 98
[2024-03-04] MEDS: oxyCODONE HCl Immed Release 5 MG TABLET PO (15:18)
== END 2024-03-04 16:09 | disposition home or self-care (01) ==
PROVIDERS: Registered Nurse Emergency; PCP Family Medicine; Visit Provider Internal Medicine
PROC: (CPT 64555; principal; 2024-03-04 12:30)
DX: G89.29 Other chronic pain (principal); M25.562 Pain in left knee
CPT/HCPCS: 64555; 87070; 87077; 87186; 87205; 87640; 87641; C1897; J0736; J2003; J2250; J2405; J2704; J3010

== ENCOUNTER → 2024-03-04 10:58 | Outpatient (BNV) | payer OTHER, SELFPAY | PROVIDERS: PCP Family Medicine; Visit Provider Internal Medicine | DX: M25.562 Pain in left knee (principal) | CPT/HCPCS: 64555 ==

== ENCOUNTER 2024-03-11 10:56 | Outpatient (AMB) | payer OTHER, SELFPAY ==
--- NOTE | 2024-03-11 11:00 | MHC.OFFVIS ---
Vital Signs 03/11/24 11:01 Height 5 ft 7 in Weight 360 lb BMI 56.4 BP 156/85 H Blood Pressure Location Lt radial Position Sitting Respiration 14 Pulse 93 Pulse Source Pulse Oximeter Pulse Oximetry (%) 93 Oxygen Delivery Method Room Air Intake Visit Reasons: S/p (L) Infra Saphenous PNS TRIAL 03/04/24 Allergies latex Allergy (Severe, Verified 03/11/24 11:02) Rash amoxicillin Allergy (Intermediate, Verified 03/11/24 11:02) rash benzonatate [Tessalon Perles] Allergy (Intermediate, Verified 03/11/24 11:02) Swelling Sulfa (Sulfonamide Antibiotics) Allergy (Intermediate, Verified 03/11/24 11:02) rash tetracycline Allergy (Intermediate, Verified 03/11/24 11:02) rash Medication List - Last Reconciled 03/11/24 by Jasmyn Vizcarra LPN albuterol sulfate 90 mcg/actuation (ProAir HFA) 2 puffs inhalation Q4-6H PRN 30 days aspirin 81 mg PO DAILY bupropion HCl SR 200 mg PO QAM 90 days celecoxib (Celebrex) 200 mg PO BID 30 days cephalexin 500 mg PO QID cetirizine (Zyrtec) 20 mg PO DAILY clotrimazole 1% 1 appl topical BID 2 weeks diphenhydramine HCl (Benadryl Allergy) 25 mg PO ONCE PRN epinephrine IM famotidine 20 mg PO DAILY fluticasone propionate 50 mcg/actuation 1 spray intranasal DAILY montelukast 10 mg PO DAILY omalizumab (Xolair) 150 mg subcut DIRECTED pantoprazole 40 mg PO DAILY tramadol 50 mg PO Q8H PRN [turmeric gummies 2 gummies PO DAILY] HPI HPI S/p (L) Infra Saphenous PNS TRIAL 03/04/24: Details: 59-year-old female who presents to the office today status post left infrasaphenous PNS trial. While in the office today, the patient reports more 80% relief following the procedure and is interested in proceeding with implant. Past Procedures: 03/04/24: Left infrasaphenous PNS trial: 80% relief 02/12/24: Infrapatellar saphenous nerve stimulation lead (Curonix) implant, right: More than 75% initial relief. 01/01/24: Percutaneous trial of peripheral nerve stimulation of right infrapatellar saphenous nerve: 80% relief. 02/18/23: Left diagnostic infrapatellar saphenous nerve block, ultrasound guided: 90% relief for two days [facility] Medical History (Updated 03/17/24 @ 09:40 by Manish Saldana MD) Nonrheumatic aortic (valve) stenosis PAC (premature atrial contraction) Sleep apnea Allergic rhinitis Infected cyst of skin Asthma Cough Surgical History (Updated 03/03/24 @ 09:20 by Tete Lujan RN) Hx of right knee surgery H/O knee surgery Hx of hysterectomy Hx of removal of cyst History of laparotomy Family History Father Prostate cancer Rectal cancer Mother CVD (cardiovascular disease) Myocardial infarction HTN (hypertension) Paternal Aunt History of ovarian cancer Maternal Uncle History of lung cancer Paternal Aunt History of breast cancer History of bone cancer Paternal Uncle No problems noted. Social History Household Members Other:: roommate Housing: Apartment Are you a primary child day care provider to a significant other at home: No Do you presently have visiting nurse or other home services: No Alcohol intake: current Alcohol intake frequency: does not drink Patient Tobacco Use Status: Never used Tobacco e-Cigarette/Vaping Use: Never Used Second Hand Smoke Exposure: No service: No Current occupational status: employed Current occupational exposures/hazards: No Cognitive needs: No Hearing needs: No Vision needs: No Review of Systems Const All systems reviewed & are unremarkable except as noted in HPI and below Physical Exam Vital Signs: Last Vital Signs Pulse 93 03/11/24 11:01 Resp 14 03/11/24 11:01 BP 156/85 H 03/11/24 11:01 Pulse Ox 93 03/11/24 11:01 Oxygen Delivery Method Room Air 03/11/24 11:01 BMI result Body Mass Index 56.4 General: Appears afebrile. Alert and oriented. Mood and affect appropriate. Follows and participates in conversation appropriately. Respiratory effort is unlabored. Able to transition from sit to stand unassisted. Ambulates with bilaterally normal heel strike and toe off. Dressing noted to be soaked in purulent discharge. Foul-smelling wound. Results Reviewed Results Reviewed: No imaging is available for review. Assessment & Plan Assessment & Plan (1) Right knee pain: Comment: Status post infrapatellar saphenous nerve stimulator implant Code(s): M25.561 - Pain in right knee Category: Medical Qualifiers: Chronicity: chronic Qualified Code(s): M25.561 - Pain in right knee; G89.29 - Other chronic pain (2) Postoperative wound infection: Code(s): T81.49XA - Infection following a procedure, other surgical site, initial encounter Category: Medical Plan Her right leg wound infection of the dressing was removed. She continues to have discharge and redness around the incision wound site. The implanted coil is still covered and not visible on my inspection. Based on her culture sensitivity, I prescribed her a course of ciprofloxacin 750 milligrams bid and clindamycin 600 milligrams tid for 10 days. Wound care instructions were provided to the patient. The wound was dressed with Steri-Strips and Tegaderm. I also provided her with my e-mail to send me the pictures of the wound She also went over the wound care plan including Betadine and bacitracin dressing along with an interval to air out of the wound. She expressed understanding. We will plan to proceed with the implant on the left side once the right side. Scribed for Dr. Saldana by Margi Gonzalez medical record librarians teacher, on 03/11/2024.? I, Dr. Saldana, have personally reviewed and agree with the information entered by the scribe. Medications: New ciprofloxacin HCl 750 mg PO BID 20 tabs 0RF clindamycin HCl 600 mg (2 x 300 mg) PO TID 60 caps 0RF Coding Level of Care Code Est Pt Level 4 (19200) Diagnoses Chronic pain of right knee M25.561; G89.29 Chronicity: chronic Postoperative wound infection T81.49XA
[2024-03-11 11:01] VITALS: BP 156/85; PULSE 93; RESP 14; O2SAT 93; BMI 56.4
== END 2024-03-11 11:29 | disposition home or self-care (01) ==
PROVIDERS: PCP Family Medicine; Visit Provider Internal Medicine
DX: M25.561 Pain in right knee (principal); G89.29 Other chronic pain; T81.49XA Infection following a procedure, other surgical site, initial encounter
CPT/HCPCS: 99024

== ENCOUNTER 2024-03-27 08:52 | Outpatient (AMB) | payer OTHER, SELFPAY ==
--- NOTE | 2024-03-27 08:55 | MHC.OFFVIS ---
Vital Signs 03/27/24 08:57 Height 5 ft 7 in Weight 360 lb BMI 56.4 BP 133/76 Blood Pressure Location Lt radial Position Sitting Respiration 16 Pulse 84 Pulse Source Pulse Oximeter Pulse Oximetry (%) 97 Oxygen Delivery Method Room Air Intake Visit Reasons: wound check Allergies latex Allergy (Severe, Verified 03/27/24 08:58) Rash amoxicillin Allergy (Intermediate, Verified 03/27/24 08:58) rash benzonatate [Tessalon Perles] Allergy (Intermediate, Verified 03/27/24 08:58) Swelling Sulfa (Sulfonamide Antibiotics) Allergy (Intermediate, Verified 03/27/24 08:58) rash tetracycline Allergy (Intermediate, Verified 03/27/24 08:58) rash Medication List - Last Reconciled 03/27/24 by Jasmyn Vizcarra LPN albuterol sulfate 90 mcg/actuation (ProAir HFA) 2 puffs inhalation Q4-6H PRN 30 days aspirin 81 mg PO DAILY bupropion HCl SR 200 mg PO QAM 90 days celecoxib (Celebrex) 200 mg PO BID 30 days cetirizine (Zyrtec) 20 mg PO DAILY clotrimazole 1% 1 appl topical BID 2 weeks diphenhydramine HCl (Benadryl Allergy) 25 mg PO ONCE PRN epinephrine IM famotidine 20 mg PO DAILY fluticasone propionate 50 mcg/actuation 1 spray intranasal DAILY montelukast 10 mg PO DAILY omalizumab (Xolair) 150 mg subcut DIRECTED pantoprazole 40 mg PO DAILY tramadol 50 mg PO Q8H PRN [turmeric gummies 2 gummies PO DAILY] HPI HPI wound check: Details: 59-year-old female who presents today to the office for a wound check. She continues to have some redness and non-healing of the wound. Overall, the infection appears to have improved on the antibiotics. There is granulation tissue at the base of the wound, which unfortunately has not improved. Past Procedures: 03/04/24: Left infrasaphenous PNS trial: 80% relief 02/12/24: Infrapatellar saphenous nerve stimulation lead (Curonix) implant, right: More than 75% initial relief. 01/01/24: Percutaneous trial of peripheral nerve stimulation of right infrapatellar saphenous nerve: 80% relief. 02/18/23: Left diagnostic infrapatellar saphenous nerve block, ultrasound guided: 90% relief for two days [facility] Medical History (Updated 03/17/24 @ 09:40 by Manish Saldana MD) Nonrheumatic aortic (valve) stenosis PAC (premature atrial contraction) Sleep apnea Allergic rhinitis Infected cyst of skin Asthma Cough Surgical History (Updated 03/03/24 @ 09:20 by Tete Lujan RN) Hx of right knee surgery H/O knee surgery Hx of hysterectomy Hx of removal of cyst History of laparotomy Family History Father Prostate cancer Rectal cancer Mother CVD (cardiovascular disease) Myocardial infarction HTN (hypertension) Paternal Aunt History of ovarian cancer Maternal Uncle History of lung cancer Paternal Aunt History of breast cancer History of bone cancer Paternal Uncle No problems noted. Social History Household Members Other:: roommate Housing: Apartment Are you a primary career technical counselor to a significant other at home: No Do you presently have visiting nurse or other home services: No Alcohol intake: current Alcohol intake frequency: does not drink Patient Tobacco Use Status: Never used Tobacco e-Cigarette/Vaping Use: Never Used Second Hand Smoke Exposure: No service: No Current occupational status: employed Current occupational exposures/hazards: No Cognitive needs: No Hearing needs: No Vision needs: No Review of Systems Const All systems reviewed & are unremarkable except as noted in HPI and below Physical Exam Vital Signs: Last Vital Signs Pulse 84 03/27/24 08:57 Resp 16 03/27/24 08:57 BP 133/76 03/27/24 08:57 Pulse Ox 97 03/27/24 08:57 Oxygen Delivery Method Room Air 03/27/24 08:57 BMI result Body Mass Index 56.4 General: Appears afebrile. Alert and oriented. Mood and affect appropriate. Follows and participates in conversation appropriately. Respiratory effort is unlabored. Able to transition from sit to stand unassisted. Ambulates with bilaterally normal heel strike and toe off. Redness and non-healing of the wound There is granulation tissue at the base of the wound, which unfortunately has not improved. Results Reviewed Results Reviewed: No imaging is available for review. Assessment & Plan Assessment & Plan (1) Postoperative wound infection: Code(s): T81.49XA - Infection following a procedure, other surgical site, initial encounter Category: Medical Plan I encourage her to continue with the wound care. We will hold off on further antibiotics at this time unless the infection starts to worsen again, at which time we can consider reinstituting the antibiotic along with a probiotic supplement. In the meanwhile, I also encourage her to see our wound care clinic and see if they have any recommendations regarding wound care that might help with the healing. Scribed for Dr. Saldana by Clint Kennedy, director global medical affairs, on 03/27/2024. I, Dr. Saldana, have personally reviewed and agree with the information entered by the scribe. Orders: Referrals Wound Care Referral T81.49XA - Infection following a procedure, other surgical site, initial encounter Coding Level of Care Code Est Pt Level 3 (81567) Diagnoses Postoperative wound infection T81.49XA
[2024-03-27 08:57] VITALS: BP 133/76; PULSE 84; RESP 16; O2SAT 97; BMI 56.4
== END 2024-03-27 10:16 | disposition home or self-care (01) ==
PROVIDERS: PCP Family Medicine; Visit Provider Internal Medicine
DX: T81.49XA Infection following a procedure, other surgical site, initial encounter (principal)
CPT/HCPCS: 99213

== ENCOUNTER → 2024-03-27 08:52 | Outpatient (BNVA) | payer OTHER, SELFPAY | PROVIDERS: PCP Family Medicine; Visit Provider Internal Medicine ==

== ENCOUNTER → 2024-04-10 08:49 | Outpatient (BNVA) | payer OTHER, SELFPAY | PROVIDERS: PCP Family Medicine; Visit Provider Internal Medicine ==

== ENCOUNTER 2024-04-21 10:30 | Outpatient (RCR) | payer OTHER, SELFPAY | END 2024-05-25 13:51 | disposition home or self-care (01) | LOC: HO.WCC 10:30 | PROVIDERS: PCP Family Medicine; Visit Provider Surgery | DX: S81.011A Laceration without foreign body, right knee, initial encounter (principal); F10.90 Alcohol use, unspecified, uncomplicated | CPT/HCPCS: 11042; 99212; 99213 ==

== ENCOUNTER 2024-07-14 15:21 | Outpatient (AMB) | payer OTHER, SELFPAY ==
--- NOTE | 2024-07-14 15:27 | A.OFFVIS_ITS ---
Vital Signs 07/14/24 15:29 Height 5 ft 7 in Weight 360 lb 4 oz BMI 56.4 BP 132/72 Blood Pressure Location Lt brachial Position Sitting Pulse 84 Pulse Source Pulse Oximeter Pulse Oximetry (%) 96 Oxygen Delivery Method Room Air Intake Visit Reasons: Follow up 6mo Intake Note: Patient presents follow up SARTHAK. Compliance in chart. Patient states she has been having dry nose Allergies latex Allergy (Severe, Verified 07/14/24 15:32) Rash amoxicillin Allergy (Intermediate, Verified 07/14/24 15:32) rash benzonatate [Tessalon Perles] Allergy (Intermediate, Verified 07/14/24 15:32) Swelling Sulfa (Sulfonamide Antibiotics) Allergy (Intermediate, Verified 07/14/24 15:32) rash tetracycline Allergy (Intermediate, Verified 07/14/24 15:32) rash HPI Comments Details: 59 year old female with h/o Asthma presents for a follow up of Sleep Apnea. She cleans her mask daily, fills the reservoir with distilled water. She has allergies and has been hive free for two years with Xolair. She is sleeping better now with the CPAP, she goes to bed at 12:30 and gets up at 6:45am, goes to the bathroom once at night. She denies headaches, feeling sluggish, brain fog and memory difficulties. She is constantly fatigued, because she is working very long hours at [employer], she is trying to be mindful of work life balance. She now uses a nose mask which is not the most comfortable fit however better then her other one. She still notices her teeth hurt due to sensitivity from cold air. Suggested trying mask liners, adjusting temperature of the air, however she due to allergies she doesn't want to adjust temperature. Her mood is stable, she would like to lose weight, and she is mindful of her eating habits and caloric intake however not interested in Bariatric procedure. Has a Peripheral Nerve Stimulation device in the R. knee surgically implanted, was infected and now healing with scar tissue. She cleans her mask daily, fills the reservoir with distilled water. CPAP compliance Apr 2024 - June 2024 >4 hours = 64 days and 71% Average use total = 4hours and 37 min Leaks Median = 9.8 to Maximum 24.4 AHI is 1.1 Serial number [id number] [facility] Medical History Nonrheumatic aortic (valve) stenosis PAC (premature atrial contraction) Sleep apnea Allergic rhinitis Infected cyst of skin Asthma Cough Surgical History Hx of right knee surgery H/O knee surgery Hx of hysterectomy Hx of removal of cyst History of laparotomy Family History Father Prostate cancer Rectal cancer Mother CVD (cardiovascular disease) Myocardial infarction HTN (hypertension) Paternal Aunt History of ovarian cancer Maternal Uncle History of lung cancer Paternal Aunt History of breast cancer History of bone cancer Paternal Uncle No problems noted. Social History Household Members Other:: roommate Housing: Apartment Are you a primary medicare biller to a significant other at home: No Do you presently have visiting nurse or other home services: No Alcohol intake: current Alcohol intake frequency: does not drink Patient Tobacco Use Status: Never used Tobacco e-Cigarette/Vaping Use: Never Used Second Hand Smoke Exposure: No service: No Current occupational status: employed Current occupational exposures/hazards: No Cognitive needs: No Hearing needs: No Vision needs: No Physical Exam Vital Signs: Last Vital Signs Pulse 84 07/14/24 15:29 BP 132/72 07/14/24 15:29 Pulse Ox 96 07/14/24 15:29 Oxygen Delivery Method Room Air 07/14/24 15:29 BMI result Body Mass Index 56.4 Const General: cooperative, comfortable and no acute distress Nutritional Appearance: obese (BMI >55.9) Orientation/consciousness: patient oriented x3 HEENT Face and sinus: Yes normal facial exam and Yes face symmetric Mouth: tongue normal Eyes Pupils: Equal, round and reactive pupils present, Pupils normal by confrontation and Pupil accommodation reflex normal Neck Neck: Yes full ROM and Yes supple Resp Effort & Inspection: normal respiratory effort and able to speak in complete sentences Neuro General: patient oriented x3, Normal light touch and pain sensation and CN's II- XI intact bilaterally Cranial nerves: Yes CN's II-XII intact bilaterally, Yes Facial sensation intact/muscles of mastication intact, Yes Equal, round and reactive pupils present, Yes Normal facial strength present, Yes Midline tongue present, Yes Symmetric palate elevation present, Yes Ability to bilaterally rotate head prese nt and Yes Ability to bilaterally elevate shoulders present Motor exam (neuro): 5/5 motor strength present throughout Deep tendon reflexes (DTR's): Right triceps reflex intensity grade: 2+, Left triceps reflex intensity grade: 2+, Rt Biceps (C5, C6): 2+, Left biceps reflex intensity grade: 2+, Right brachioradialis reflex intensity grade: 2+ and Left brachioradialis reflex intensity grade: 2+ Coordination: [id number] test normal Results Reviewed Results Reviewed: CPAP compliance Apr 2024 - June 2024 >4 hours = 64 days and 71% Average use total = 4hours and 37 min Leaks Median = 9.8 to Maximum 24.4 AHI is 1.1 Serial number [id number] Assessment & Plan Assessment & Plan (1) SARTHAK (obstructive sleep apnea): Comment: Moderate degree of sleep apnea with increased severity in REM sleep. The AHI was 22/hr, REM AHI was 42/hr and oxygen gina was 75%. Code(s): G47.33 - Obstructive sleep apnea (adult) (pediatric) Category: Medical (2) Morbid obesity with BMI of 50.0-59.9, adult: Code(s): E66.01 - Morbid (severe) obesity due to excess calories; Z68.43 - Body mass index [BMI] 50.0-59.9, adult Category: Medical (3) Right knee pain: Comment: Status post infrapatellar saphenous nerve stimulator implant Code(s): M25.561 - Pain in right knee Category: Medical Qualifiers: Chronicity: chronic Qualified Code(s): M25.561 - Pain in right knee; G89.29 - Other chronic pain (4) Difficulty sleeping: Code(s): G47.9 - Sleep disorder, unspecified Category: Medical (5) Fatigue due to sleep pattern disturbance: Code(s): R53.83 - Other fatigue; G47.9 - Sleep disorder, unspecified Category: Medical Plan SARTHAK Moderate continue use of CPAP daily and wash mask change filters as needed. Weight Management if patient is able to go for the nutritional counseling and dietary changes. Allergies continue Xolair and use Nasal Saline as needed. Teeth sensitivity may use Mi- Paste Tooth Paste or Xylitol Epic Toothpaste for Bone mineralization. Orders: Orders Hemoglobin A1c Today G47.9 - Sleep disorder, unspecified, R53.83 - Other fatigue IRON PROFILE Today G47.9 - Sleep disorder, unspecified, R53.83 - Other fatigue Complete Blood Count no Diff Today G47.9 - Sleep disorder, unspecified, R53.83 - Other fatigue Comprehensive Met. Panel Today G47.9 - Sleep disorder, unspecified, R53.83 - Other fatigue Vitamin D 25-OH Total Today G47.9 - Sleep disorder, unspecified, R53.83 - Other fatigue Homocysteine Today G47.9 - Sleep disorder, unspecified, R53.83 - Other fatigue Ferritin Today G47.9 - Sleep disorder, unspecified, R53.83 - Other fatigue Vitamin B12 and Folate Today G47.9 - Sleep disorder, unspecified, R53.83 - Other fatigue Methylmalonic Acid Today G47.9 - Sleep disorder, unspecified, R53.83 - Other fatigue Patient Instructions: Sleep Hygiene provided: set a scheduled bedtime and wake time to help regulate the circadian rhythm and balance the release of pituitary hormones. Sleep in a dark room, temperatures below 68 degrees, and no devices n bed. Limit caffeinated products 6 hours prior to bed, and limit fluids 2-4 hours prior to bed. Gentle night yoga, diffusing essential oils, and playing soft music can be relaxing. Coding Level of Care Code Est Pt Level 4 (37042) Diagnoses SARTHAK (obstructive sleep apnea) G47.33 Morbid obesity with BMI of 50.0-59.9, adult E66.01; Z68.43 Chronic pain of right knee M25.561; G89.29 Chronicity: chronic Difficulty sleeping G47.9 Fatigue due to sleep pattern disturbance R53.83; G47.9 Time Spent (min) 30
[2024-07-14 15:29] VITALS: BP 132/72; PULSE 84; O2SAT 96; BMI 56.4
== END 2024-07-14 16:15 | disposition home or self-care (01) ==
LOC: HO.HSMS 15:21
PROVIDERS: PCP Family Medicine; Visit Provider Physician Assistant Medical
DX: G47.33 Obstructive sleep apnea (adult) (pediatric) (principal); E66.01 Morbid (severe) obesity due to excess calories; Z68.43 Body mass index [BMI] 50.0-59.9, adult; M25.561 Pain in right knee; G89.29 Other chronic pain; G47.9 Sleep disorder, unspecified; R53.83 Other fatigue
CPT/HCPCS: 99214

== ENCOUNTER 2024-10-08 15:21 | Outpatient (AMB) | payer OTHER, SELFPAY ==
--- NOTE | 2024-10-08 15:34 | A.OFFPC_ITS ---
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 Allergies latex Allergy (Severe, Verified 10/08/24 15:35) Rash amoxicillin Allergy (Intermediate, Verified 10/08/24 15:35) rash benzonatate (Tessalon Perles) Allergy (Intermediate, Verified 10/08/24 15:35) Swelling Sulfa (Sulfonamide Antibiotics) Allergy (Intermediate, Verified 10/08/24 15:35) rash tetracycline Allergy (Intermediate, Verified 10/08/24 15:35) rash Medication List - Last Reconciled 10/08/24 by Sandor Llamas MD albuterol sulfate 90 mcg/actuation (ProAir HFA) 2 puffs inhalation Q4-6H PRN 30 days aspirin 81 mg PO DAILY bupropion HCl SR 200 mg PO QAM 90 days celecoxib (Celebrex) 200 mg PO BID 30 days cetirizine (Zyrtec) 20 mg PO DAILY clotrimazole 1% 1 appl topical BID 2 weeks diphenhydramine HCl (Benadryl Allergy) 25 mg PO ONCE PRN epinephrine IM famotidine 20 mg PO DAILY fluticasone propionate 50 mcg/actuation 1 spray intranasal DAILY montelukast 10 mg PO DAILY omalizumab (Xolair) 150 mg subcut DIRECTED pantoprazole 40 mg PO DAILY semaglutide (weight loss) (Wegovy) 0.25 mg (0.5 mL) subcut QWEEK 28 days tramadol 50 mg PO Q8H PRN [turmeric gummies 2 gummies PO DAILY] Tobacco use date assessed: 11/01/23 Dental Screening Dental Screen Date: 11/01/23 HPI F/U Weight Management HPI Details 59 y/o female presents to f/u chronic co nditions. Pt is on wegovy which she notes she tried once earlier this week on Saturday. She did experience some nausea. Pt notes she has already noticed changes to her appetite. Had been following up with sleep medicine, neurology. Has complaints of a rash on L penn. HPI Comments History of Present Illness Details Documentation assistance for Sandor Llamas MD, was provided by Nils Stanley, Animal Husbandry Manager on 10/08/2024 at 4:14 PM EST. I, Dr. Llamas, have read, observed, and verified documentation. [facility] Medical History Nonrheumatic aortic (valve) stenosis PAC (premature atrial contraction) Sleep apnea Allergic rhinitis Infected cyst of skin Asthma Cough Surgical History Hx of right knee surgery H/O knee surgery Hx of hysterectomy Hx of removal of cyst History of laparotomy Family History Father Prostate cancer Rectal cancer Mother CVD (cardiovascular disease) Myocardial infarction HTN (hypertension) Paternal Aunt History of ovarian cancer Maternal Uncle History of lung cancer Paternal Aunt History of breast cancer History of bone cancer Paternal Uncle No problems noted. Social History Household Members Other:: roommate Housing: Apartment Are you a primary vocational childcare teacher to a significant other at home: No Do you presently have visiting nurse or other home services: No Alcohol intake: current Alcohol intake frequency: does not drink Patient Tobacco Use Status: Never used Tobacco e-Cigarette/Vaping Use: Never Used Second Hand Smoke Exposure: No service: No Current occupational status: employed Current occupational exposures/hazards: No Cognitive needs: No Hearing needs: No Vision needs: No Questionnaire PHQ-9 Over the last 2 weeks, how often have you been bothered by any of the following problems? 1. Little interest or pleasure in doing things: not at all 2. Feeling down, depressed, or hopeless: not at all 3. Trouble falling or staying asleep, or sleeping too much: not at all 4. Feeling tired or having little energy: several days 5. Poor appetite or overeating: not at all 6. Feeling bad about yourself - or that you are a failure or have let yourself or your family down: not at all 7. Trouble concentrating on things, such as reading the newspaper or watching television: not at all 8. Moving or speaking so slowly that other people could have noticed. Or the opposite - being so fidgety or restless that you have been moving around a lot more than usual: not at all 9. Thoughts that you would be better off or of hurting yourself in some way: not at all Total score: 1 Source: Developed by Drs. Jimmy Saini, Janette Andino, Mickey Chiu and colleagues, with an educational dilcia from [employer] Thrive Questionnaire Date Thrive assessed: 11/01/23 I am a: Patient What is your living situation today?: I have a steady place to live Within the past 12 months, did the food you bought not last and you didn't have the money to get more?: Never true Within the past 12 months, did you worry whether your food would run out before you got money to buy more?: Never true Do you have trouble paying for medicines?: No Do you have trouble getting transportation to medical appointments?: No Do you have trouble paying your heating and electricity bill?: No Do you have trouble taking care of your child, family member or friend?: No Do you have trouble with day-to-day activities such as bathing, preparing meals, shopping, managing finances, etc.?: No Are you currently unemployed and looking for a job?: No Are you interested in more education?: No Please select the resources that you would like help with: None Currently or been in a relationship where the following occur: I choose not to answer THRIVE Score: 0 AUDIT C Alcohol Use Questionnaire (AUDIT-C) 1. How often do you have a drink containing alcohol?: Monthly or less 2. How many drinks containing alcohol do you have on a typical day when you are drinking?: 1 or 2 3. How often do you have six or more drinks on one occasion?: Never Total Score: 1 RHYS-7 AMB Questionnaire RHYS-7 Date RHYS - 7 assessed: 11/01/23 Feeling nervous, anxious, or on edge: 0 = Not at all Not being able to stop or control worryin = Not at all Worrying too much about different things: 0 = Not at all Trouble relaxin = Not at all Being so restless that it is hard to sit still: 0 = Not at all Becoming easily annoyed or irritable: 0 = Not at all Feeling afraid as if something awful might happen: 0 = Not at all Total RHYS-7 score (0-4 normal; 5-9 mild; 10-14 moderate; 15-21 severe): 0 Source: Developed by Drs. Jimmy Saini, Janette Andino, Mickey Chiu and colleagues, with an educational dilcia from [employer] Review of Systems Const Denies chills, Denies fatigue, Denies fever(s), Denies headache(s) and Denies weakness ENT Denies dizziness and Denies headache(s) Card Denies dyspnea Resp Denies cough, Denies dyspnea, Denies wheezing and Denies other (shortness of breath) Musc Denies numbness and Denies tingling Skin/Breast Reports rash Neuro Denies dizziness, Denies headache(s), Denies numbness, Denies tingling and Denies weakness Psych Denies anxiety and Denies depression Endo Denies fatigue Aller/Immun Denies wheezing Physical exam (Primary Care) Vital Signs: Last Vital Signs Temp 97.6 F 10/08/24 15:45 Pulse 98 10/08/24 15:45 Resp 16 10/08/24 15:45 BP 120/80 10/08/24 15:45 Pulse Ox 97 10/08/24 15:45 Oxygen Delivery Method Room Air 10/08/24 15:45 BMI result Body Mass Index 57.0 Tobacco/Smoking Status: Tobacco use Status Tobacco use date assessed 11/01/23 10/08/24 15:44 Patient Tobacco Use Status Never used Tobacco 10/08/24 15:44 e-Cigarette/Vaping Use Never Used 10/08/24 15:44 PHQ-9: PHQ-9 Score PHQ-9: Total score 1 10/08/24 16:04 Thrive Assessment: Date of Thrive Assessment Date Thrive assessed 11/01/23 10/08/24 15:44 Currently or been in a relationship where the following occur: I choose not to answer Const General: well developed; No acute distress Nutritional Appearance: obese morbidly obese Orientation/consciousness: patient oriented x3 HENMT Head: Yes normocephalic and Yes atraumatic Eyes General: appearance normal, both eyes and all related structures Pupils: Equal, round and reactive pupils present EOM: EOMs intact bilaterally Resp Effort & Inspection: normal respiratory effort Neuro General: patient oriented x3 and gait normal Cranial nerves: Yes Equal, round and reactive pupils present Psych Affect: normal affect Results AMB Hemoglobin A1c AMB Hemoglobin A1c 5.5 % Last Edit by MELODIE Box on 10/08/24 17:15 Results Reviewed Results Reviewed: Laboratory Last Values Hgb A1c (Clinic) 5.5 % (4.0-6.0) 10/08/24 17:12 Coding Level of Care Code Est Pt Level 5 (47646) Diagnoses Morbid obesity with BMI of 50.0-59.9, adult E66.01; Z68.43 SARTHAK (obstructive sleep apnea) G47.33 Rash R21 Neoplasm of uncertain behavior of skin D48.5 Venous stasis dermatitis I87.2 Elevated fasting blood sugar R73.01 Assessment & Plan Assessment & Plan (1) Morbid obesity with BMI of 50.0-59.9, adult: Code(s): E66.01 - Morbid (severe) obesity due to excess calories; Z68.43 - Body mass index [BMI] 50.0-59.9, adult Category: Medical Plan: Patient recently started Wegovy and is tolerating this Continue current medication Hydrate well Encouraged low-impact exercise such as water exercise We will follow-up in 2 months (2) SARTHAK (obstructive sleep apnea): Comment: Moderate degree of sleep apnea with increased severity in REM sleep. The AHI was 22/hr, REM AHI was 42/hr and oxygen gina was 75%. Code(s): G47.33 - Obstructive sleep apnea (adult) (pediatric) Category: Medical Plan: Followed by sleep medicine Continue CPAP (3) Rash: Code(s): R21 - Rash and other nonspecific skin eruption Category: Medical Plan: Rash on left penn This appears to be a venous stasis dermatitis Will send a script for clobetasol Also has papules which may be skin tags or other neoplasm Referring her to Dermatology (4) Neoplasm of uncertain behavior of skin: Code(s): D48.5 - Neoplasm of uncertain behavior of skin Category: Medical Plan: As above referred to Dermatology (5) Venous stasis dermatitis: Code(s): I87.2 - Venous insufficiency (chronic) (peripheral) Category: Medical Plan: Start Clobetasol (6) Elevated fasting blood sugar: Code(s): R73.01 - Impaired fasting glucose Category: Medical Plan: A1c today was 5.5% which is top normal range Only just started Wegovy for weight loss and this will likely improve blood sugar control as well Plan She will return in 2 months to follow-up weight management. She has only just started Wegovy. Orders: Orders AMB Hemoglobin A1c Today R73.01 - Impaired fasting glucose Referrals Dermatology Referral D48.5 - Neoplasm of uncertain behavior of skin, I87.2 - Venous insufficiency (chronic) (peripheral) Medications: New clobetasol 0.05% 1 appl topical BID 59 mL 1RF 2 weeks
[2024-10-08 15:45] VITALS: BP 120/80; PULSE 98; RESP 16; TEMP 36.4; O2SAT 97; BMI 57.0
== END 2024-10-08 16:22 | disposition home or self-care (01) ==
LOC: HO.HMCFM 15:22
PROVIDERS: PCP Family Medicine; Visit Provider Family Medicine
DX: G47.33 Obstructive sleep apnea (adult) (pediatric) (principal); E66.01 Morbid (severe) obesity due to excess calories; Z68.43 Body mass index [BMI] 50.0-59.9, adult; R21 Rash and other nonspecific skin eruption; D48.5 Neoplasm of uncertain behavior of skin; I87.2 Venous insufficiency (chronic) (peripheral); R73.01 Impaired fasting glucose

== ENCOUNTER → 2024-10-08 15:21 | Outpatient (BNVA) | payer OTHER, SELFPAY | PROVIDERS: PCP Family Medicine; Visit Provider Family Medicine | DX: R11.0 Nausea (principal); E66.01 Morbid (severe) obesity due to excess calories; G47.33 Obstructive sleep apnea (adult) (pediatric); R21 Rash and other nonspecific skin eruption; D48.5 Neoplasm of uncertain behavior of skin; I87.2 Venous insufficiency (chronic) (peripheral); R73.01 Impaired fasting glucose; Z68.43 Body mass index [BMI] 50.0-59.9, adult | CPT/HCPCS: 83036; 96127 ==

== ENCOUNTER 2024-11-16 14:51 | Outpatient (AMB) | payer OTHER, SELFPAY ==
--- NOTE | 2024-11-16 14:54 | MHC.OFFVIS ---
Intake Visit Reasons: 1 yr fu (rs) Allergies latex Allergy (Severe, Verified 10/08/24 15:35) Rash amoxicillin Allergy (Intermediate, Verified 10/08/24 15:35) rash benzonatate (Tessalon Perles) Allergy (Intermediate, Verified 10/08/24 15:35) Swelling Sulfa (Sulfonamide Antibiotics) Allergy (Intermediate, Verified 10/08/24 15:35) rash tetracycline Allergy (Intermediate, Verified 10/08/24 15:35) rash PFSH Medical History Nonrheumatic aortic (valve) stenosis PAC (premature atrial contraction) Sleep apnea Allergic rhinitis Infected cyst of skin Asthma Cough Surgical History Hx of right knee surgery H/O knee surgery Hx of hysterectomy Hx of removal of cyst History of laparotomy Family History Father Prostate cancer Rectal cancer Mother CVD (cardiovascular disease) Myocardial infarction HTN (hypertension) Paternal Aunt History of ovarian cancer Maternal Uncle History of lung cancer Paternal Aunt History of breast cancer History of bone cancer Paternal Uncle No problems noted. Social History Household Members Other:: roommate Housing: Apartment Are you a primary occasional caregiver to a significant other at home: No Do you presently have visiting nurse or other home services: No Alcohol intake: current Alcohol intake frequency: does not drink Patient Tobacco Use Status: Never used Tobacco e-Cigarette/Vaping Use: Never Used Second Hand Smoke Exposure: No service: No Current occupational status: employed Current occupational exposures/hazards: No Cognitive needs: No Hearing needs: No Vision needs: No Coding
[2024-11-16 14:55] VITALS: BP 124/62; PULSE 87; BMI 55.9
--- NOTE | 2024-11-16 14:55 | MHC.OFFVIS ---
Vital Signs 11/16/24 14:55 Height 5 ft 7 in Weight 356 lb 11.327 oz BMI 55.9 BP 124/62 Blood Pressure Location Lt radial Position Sitting Pulse 87 Pulse Source Monitor Intake Visit Reasons: 1 yr fu (rs) Intake Note: 1 yr f/up Director Patient Required: No Accompanied by: Self / Same As Patient Allergies latex Allergy (Severe, Verified 10/08/24 15:35) Rash amoxicillin Allergy (Intermediate, Verified 10/08/24 15:35) rash benzonatate (Tessalon Perles) Allergy (Intermediate, Verified 10/08/24 15:35) Swelling Sulfa (Sulfonamide Antibiotics) Allergy (Intermediate, Verified 10/08/24 15:35) rash tetracycline Allergy (Intermediate, Verified 10/08/24 15:35) rash Medication List - Last Reconciled 11/16/24 by Obed De La Cruz MD albuterol sulfate 90 mcg/actuation (ProAir HFA) 2 puffs inhalation Q4-6H PRN 30 days aspirin 81 mg PO DAILY bupropion HCl SR 200 mg PO QAM 90 days celecoxib (Celebrex) 200 mg PO BID 30 days cetirizine (Zyrtec) 20 mg PO DAILY clobetasol 0.05% 1 appl topical BID 2 weeks clotrimazole 1% 1 appl topical BID 2 weeks diphenhydramine HCl (Benadryl Allergy) 25 mg PO ONCE PRN epinephrine IM famotidine 20 mg PO DAILY fluticasone propionate 50 mcg/actuation 1 spray intranasal DAILY montelukast 10 mg PO DAILY omalizumab (Xolair) 150 mg subcut DIRECTED pantoprazole 40 mg PO DAILY tramadol 50 mg PO Q8H PRN [turmeric gummies 2 gummies PO DAILY] HPI Comments Details: Pleasant 59-year-old female here for follow-up. She has strong FH of CAD. She had coronary calcium score in the past and it was zero. She had sharp chest pain lasting few seconds and was referred for stress echo. She was able to exercise for 2.5 mins and stopped due to dyspnea. She said she also had ankle pain. Stress echo did not show RWMA but showed a small apical aneurysm. 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 She was started on baby aspirin. She now returns for follow-up after a year. She recently had viral illness and had asthma exacerbation due to that. She received prednisone. She continues to get dyspnea on exertion. Denying any chest discomfort. EKG showing low voltage with poor R-wave progression and cannot rule out anterior infarct. She has not had any cardiac sounding chest discomfort in the past. 10/23/2023: She is here for follow-up. She has been doing well. No chest discomfort shortness of breath. He is trying to walk more. Repeat echocardiography has shown low normal ejection fraction with small apical diverticulum and mild aortic valve stenosis. Clinically she has no symptoms compared to previous visit. 11/16/2024: She is here for follow-up. Denying any chest discomfort shortness of breath. EKGs showing premature atrial complexes. She is saying that she drank a large coffee today which is unusual for her. She monitors her heart rate with a fit bit and has not noticed any tachycardia. [facility] Medical History Nonrheumatic aortic (valve) stenosis PAC (premature atrial contraction) Sleep apnea Allergic rhinitis Infected cyst of skin Asthma Cough Surgical History Hx of right knee surgery H/O knee surgery Hx of hysterectomy Hx of removal of cyst History of laparotomy Family History Father Prostate cancer Rectal cancer Mother CVD (cardiovascular disease) Myocardial infarction HTN (hypertension) Paternal Aunt History of ovarian cancer Maternal Uncle History of lung cancer Paternal Aunt History of breast cancer History of bone cancer Paternal Uncle No problems noted. Social History Household Members Other:: roommate Housing: Apartment Are you a primary respiratory care technician to a significant other at home: No Do you presently have visiting nurse or other home services: No Alcohol intake: current Alcohol intake frequency: does not drink Patient Tobacco Use Status: Never used Tobacco e-Cigarette/Vaping Use: Never Used Second Hand Smoke Exposure: No service: No Current occupational status: employed Current occupational exposures/hazards: No Cognitive needs: No Hearing needs: No Vision needs: No Review of Systems Const Denies chills, Denies fatigue, Denies fever(s), Denies frequent falls, Denies weakness, Denies weight gain and Denies weight loss ENT Denies dizziness Card Denies chest pain, Denies leg edema, Denies lightheadedness, Denies palpitations, Denies dyspnea and Denies dyspnea on exertion Resp Denies cough, Denies dyspnea and Denies dyspnea on exertion GI Denies hematochezia Musc Denies abnormal gait, Denies muscle weakness, Denies numbness, Denies radiating pain into limb and Denies tingling Neuro Denies abnormal gait, Denies dizziness, Denies frequent falls, Denies numbness, Denies tingling and Denies weakness Endo Denies fatigue and Denies palpitations Physical Exam Vital Signs: BMI result Body Mass Index 55.9 GENERAL APPEARANCE: in no acute distress, well developed, well nourished. NECK/THYROID: no carotid bruit, no jugular venous distention. SKIN: no suspicious lesions, warm and dry. HEART: no murmurs, regular rate and rhythm, S1, S2 normal. LUNGS: clear to auscultation bilaterally. ABDOMEN: normal, bowel sounds present, soft, nontender, nondistended. EXTREMITIES: no clubbing, cyanosis, or edema. PERIPHERAL PULSES: equal. NEUROLOGIC: nonfocal, alert and oriented. PSYCH: mood/affect full range. Office Procedures EKG Details: Sinus rhythm 87 beats per minute, normal axis, premature atrial complexes, low voltage, poor R-wave progression and can not rule out anterior infarct, QTC 447 milliseconds. [id number], Complete Assessment & Plan Assessment & Plan (1) Diverticulum of left ventricle: Code(s): Q24.8 - Other specified congenital malformations of heart Category: Medical Plan [age] year female who is here for follow-up. She has incidental finding of apical diverticulum of the left ventricle. She was started on baby aspirin for stroke prevention and she has been taking that regularly and has not had any symptoms. Previously stress testing has not shown any significant ischemia. She continues to be stable without any chest pain or significant shortness of breath. She has some premature atrial complexes on the EKG. These can be due to caffeine intake. I have advised her to monitor her heart rate with fit bit and if she has any unexplained tachycardia to reach out to us. Follow up with us in 1 year. Thank you for allowing me to participate in the care of your patient. Please feel free to contact me if you have any questions. Coding Level of Care Code Est Pt Level 4 (57995) Diagnoses Diverticulum of left ventricle Q24.8 CPT Codes EKG - CPT: 25317-[id number], Complete ([id number])
== END 2024-11-16 15:17 | disposition home or self-care (01) ==
LOC: HO.HCS 14:52
PROVIDERS: PCP Family Medicine; Visit Provider Internal Medicine Cardiovascular Disease
DX: Q24.8 Other specified congenital malformations of heart (principal)
CPT/HCPCS: 93010; 99214

== ENCOUNTER → 2024-11-16 14:51 | Outpatient (BNVA) | payer OTHER, SELFPAY | PROVIDERS: PCP Family Medicine; Visit Provider Internal Medicine Cardiovascular Disease | DX: Q24.8 Other specified congenital malformations of heart (principal) | CPT/HCPCS: 93005 ==

== ENCOUNTER 2024-12-15 08:39 | Outpatient (REF) | payer OTHER, SELFPAY ==
[2024-12-15 11:41] LABS: Hematocrit 36.9 % (37.0-47.0); Hemoglobin 12.0 g/dl (12.0-16.0); Mean Corpuscular HGB Conc 32.5 g/dl (31.0-35.0); Mean Corpuscular Hemoglobin 29.9 pg (27.0-33.0); Mean Corpuscular Volume 91.8 fL (80.0-98.0); NRBC Abs Auto 0.000 X10*3/uL (0.0-0.012); NRBC Pct Auto 0.0 /100WBC (0.0-0.2); Platelet Count 258 X10*3/uL (160-400); Red Blood Count 4.02 X10*6/uL (4.20-5.50); White Blood Count 7.1 X10*3/uL (4.8-10.8)
[2024-12-15 11:59] LABS: Hemoglobin A1C 111.8893 umol/L; Total Hemoglobin (HGBA1C) 3102.2527 umol/L
[2024-12-15 12:42] LABS: Folate 18.6 ng/mL (> or = 4.0); Vitamin B12 344 pg/mL (200-900)
[2024-12-15 20:19] LABS: Alanine Aminotransferase 17 U/L (0-31); Albumin Level 3.9 g/dL (3.5-5.0); Alkaline Phosphatase 126 U/L (39-117); Anion Gap 12 (12-20); Aspartate Amino Transferase 19 U/L (5-31); Blood Urea Nitrogen 15 mg/dL (9-16); Calcium 8.7 mg/dL (8.4-10.2); Carbon Dioxide 29 mmol/L (22-29); Chloride 108 mmol/L (96-108); Estimated Glomerular Filt Rate > 60; Iron 69 mcg/dL (30-160); Percent Iron Saturation 24 % (15-50); Potassium 4.4 mmol/L (3.3-5.1); Sodium 145 mmol/L (135-145); Total Iron Binding Capacity 285 mcg/dL (228-428); Total Protein 5.8 g/dL (6.5-8.0); Unsaturated Iron Binding 216 ug/dL
[2024-12-15 20:35] LABS: Ferritin 24 ng/mL (10-250)
== END 2024-12-15 08:40 | disposition home or self-care (01) ==
LOC: HO.WFDLDS 08:39
PROVIDERS: Visit Provider Physician Assistant Medical
DX: Z13.1 Encounter for screening for diabetes mellitus (principal); R53.83 Other fatigue; G47.9 Sleep disorder, unspecified
CPT/HCPCS: 36415; 80053; 82306; 82607; 82728; 82746; 83036; 83540; 83921; 85027

== ENCOUNTER 2024-12-18 08:46 | Outpatient (AMB) | payer OTHER, SELFPAY ==
--- NOTE | 2024-12-18 08:51 | A.OFFPC_ITS ---
Vital Signs 12/18/24 08:52 12/18/24 09:23 Height 5 ft 7 in Weight 365 lb 4 oz BMI 57.2 BP 142/88 H 126/84 Blood Pressure Location Lt brachial Lt brachial Position Sitting Sitting Pulse 97 Pulse Source Pulse Oximeter Pulse Oximetry (%) 97 Oxygen Delivery Method Room Air Intake Visit Reasons: f/u chronic conditions Allergies latex Allergy (Severe, Verified 12/18/24 08:54) Rash amoxicillin Allergy (Intermediate, Verified 12/18/24 08:54) rash benzonatate (Tessalon Perles) Allergy (Intermediate, Verified 12/18/24 08:54) Swelling Sulfa (Sulfonamide Antibiotics) Allergy (Intermediate, Verified 12/18/24 08:54) rash tetracycline Allergy (Intermediate, Verified 12/18/24 08:54) rash Medication List - Last Reconciled 12/18/24 by Sandor Llamas MD albuterol sulfate 90 mcg/actuation (ProAir HFA) 2 puffs inhalation Q4-6H PRN 30 days aspirin 81 mg PO DAILY bupropion HCl SR 200 mg PO QAM 90 days celecoxib (Celebrex) 200 mg PO BID 30 days cetirizine (Zyrtec) 20 mg PO DAILY clobetasol 0.05% 1 appl topical BID 2 weeks clotrimazole 1% 1 appl topical BID 2 weeks diphenhydramine HCl (Benadryl Allergy) 25 mg PO ONCE PRN epinephrine IM famotidine 20 mg PO DAILY fluticasone propionate 50 mcg/actuation 1 spray intranasal DAILY montelukast 10 mg PO DAILY omalizumab (Xolair) 150 mg subcut DIRECTED pantoprazole 40 mg PO DAILY [turmeric gummies 2 gummies PO DAILY] Tobacco use date assessed: 12/18/24 Dental Screening Dental Screen Date: 12/18/24 Did you have a dental visit in the last 12 months?: Yes Did you have a dental problem in the last 6 months where you did not have access to dental care?: No Was dental information given to patient?: Patient has dentist HPI f/u chronic conditions HPI Details 59 y/o female presents to f/u chronic co nditions. Blood pressure today upon relaxation is 126/84. Had been losing weight with wegovy but insurance had changed policy and started to deny this. Follows up with Cardiology for tachycardia and diverticulum of L ventricle. HPI Comments History of Present Illness Details Documentation assistance for Sandor Llamas MD, was provided by Nils Stanley,? Monogram Machine Operator on 12/18/2024 at 9:25 AM VARGAS. I, Dr. Llamas, have read, observed, and verified documentation. ? PFSH Medical History Nonrheumatic aortic (valve) stenosis PAC (premature atrial contraction) Sleep apnea Allergic rhinitis Infected cyst of skin Asthma Cough Surgical History Hx of right knee surgery H/O knee surgery Hx of hysterectomy Hx of removal of cyst History of laparotomy Family History Father Prostate cancer Rectal cancer Mother CVD (cardiovascular disease) Myocardial infarction HTN (hypertension) Paternal Aunt History of ovarian cancer Maternal Uncle History of lung cancer Paternal Aunt History of breast cancer History of bone cancer Paternal Uncle No problems noted. Social History Household Members Other:: roommate Housing: Apartment Are you a primary technical healthcare consultant to a significant other at home: No Do you presently have visiting nurse or other home services: No Alcohol intake: current Alcohol intake frequency: does not drink Patient Tobacco Use Status: Never used Tobacco e-Cigarette/Vaping Use: Never Used Second Hand Smoke Exposure: No service: No Current occupational status: employed Current occupational exposures/hazards: No Cognitive needs: No Hearing needs: No Vision needs: No Questionnaire PHQ-9 Over the last 2 weeks, how often have you been bothered by any of the following problems? 1. Little interest or pleasure in doing things: not at all 2. Feeling down, depressed, or hopeless: not at all 3. Trouble falling or staying asleep, or sleeping too much: not at all 4. Feeling tired or having little energy: several days 5. Poor appetite or overeating: not at all 6. Feeling bad about yourself - or that you are a failure or have let yourself or your family down: not at all 7. Trouble concentrating on things, such as reading the newspaper or watching television: not at all 8. Moving or speaking so slowly that other people could have noticed. Or the opposite - being so fidgety or restless that you have been moving around a lot more than usual: not at all 9. Thoughts that you would be better off or of hurting yourself in some way: not at all Total score: 1 Source: Developed by Drs. Jimmy Saini, Janette Andino, Mickey Chiu and colleagues, with an educational dilcia from [employer]. Thrive Questionnaire Date Thrive assessed: 10/08/24 I am a: Patient What is your living situation today?: I have a steady place to live Within the past 12 months, did the food you bought not last and you didn't have the money to get more?: Never true Within the past 12 months, did you worry whether your food would run out before you got money to buy more?: Never true Do you have trouble paying for medicines?: No Do you have trouble getting transportation to medical appointments?: No Do you have trouble paying your heating and electricity bill?: No Do you have trouble taking care of your child, family member or friend?: No Do you have trouble with day-to-day activities such as bathing, preparing meals, shopping, managing finances, etc.?: No Are you currently unemployed and looking for a job?: No Are you interested in more education?: No Please select the resources that you would like help with: None Currently or been in a relationship where the following occur: I choose not to answer THRIVE Score: 0 AUDIT C Alcohol Use Questionnaire (AUDIT-C) 1. How often do you have a drink containing alcohol?: Monthly or less 2. How many drinks containing alcohol do you have on a typical day when you are drinking?: 1 or 2 3. How often do you have six or more drinks on one occasion?: Never Total Score: 1 RHYS-7 AMB Questionnaire RHYS-7 Date RHYS - 7 assessed: 12/18/24 Feeling nervous, anxious, or on edge: 0 = Not at all Not being able to stop or control worryin = Not at all Worrying too much about different things: 0 = Not at all Trouble relaxin = Not at all Being so restless that it is hard to sit still: 0 = Not at all Becoming easily annoyed or irritable: 0 = Not at all Feeling afraid as if something awful might happen: 0 = Not at all Total RHYS-7 score (0-4 normal; 5-9 mild; 10-14 moderate; 15-21 severe): 0 Source: Developed by Drs. Jimmy Saini, Janette Andino, Mickey Chiu and colleagues, with an educational dilcia from [employer]. RHYS-7 Assessment Billing RHYS-7 Assessment Tool: RHYS-7 Assessment 21267 Review of Systems Const Denies chills, Denies fatigue, Denies fever(s), Denies headache(s) and Denies weakness ENT Denies dizziness and Denies headache(s) Card Denies dyspnea Resp Denies cough, Denies dyspnea, Denies wheezing and Denies other (shortness of breath) Musc Denies numbness and Denies tingling Neuro Denies dizziness, Denies headache(s), Denies numbness, Denies tingling and Denies weakness Psych Denies anxiety and Denies depression Endo Denies fatigue Aller/Immun Denies wheezing Physical exam (Primary Care) Vital Signs: Last Vital Signs Pulse 97 12/18/24 08:52 BP 142/88 H 12/18/24 08:52 Pulse Ox 97 12/18/24 08:52 Oxygen Delivery Method Room Air 12/18/24 08:52 BMI result Body Mass Index 57.2 Tobacco/Smoking Status: Tobacco use Status Tobacco use date assessed 12/18/24 12/18/24 08:55 Patient Tobacco Use Status Never used Tobacco 12/18/24 08:52 e-Cigarette/Vaping Use Never Used 12/18/24 08:52 PHQ-9: PHQ-9 Score PHQ-9: Total score 1 12/18/24 08:55 Thrive Assessment: Date of Thrive Assessment Date Thrive assessed 10/08/24 12/18/24 08:52 Currently or been in a relationship where the following occur: I choose not to answer Const General: well developed; No acute distress Nutritional Appearance: well nourished Orientation/consciousness: patient oriented x3 HENMT Head: Yes normocephalic and Yes atraumatic Eyes General: appearance normal, both eyes and all related structures Pupils: Equal, round and reactive pupils present EOM: EOMs intact bilaterally Resp Effort & Inspection: normal respiratory effort Neuro General: patient oriented x3 and gait normal Cranial nerves: Yes Equal, round and reactive pupils present Psych Affect: normal affect Coding Level of Care Code Est Pt Level 4 (98444) Diagnoses Morbid obesity with BMI of 50.0-59.9, adult E66.01; Z68.43 SARTHAK (obstructive sleep apnea) G47.33 Tachycardia R00.0 Diverticulum of left ventricle Q24.8 Sciatica M54.30 Additional Codes RHYS-7 Assessment Billing - RHYS-7 Assessment Tool: RHYS-7 Assessment 58160 ([id number]) Assessment & Plan Assessment & Plan (1) Morbid obesity with BMI of 50.0-59.9, adult: Code(s): E66.01 - Morbid (severe) obesity due to excess calories; Z68.43 - Body mass index [BMI] 50.0-59.9, adult Category: Medical Plan: Ongoing morbid obesity. She had been losing weight with Wegovy but although this was approved by her insurance initially, they change their policy and began to deny it. She is now gaining weight again. Also has a history of obstructive sleep apnea Insurance has recommended phentermine without any consideration of the fact that she has a history tachycardia and is now followed by cardiology for a left ventricular diverticulum for which she was started on aspirin recently. Phentermine is a stimulant and not appropriate for this patient. As she was already on Wegovy with good affect and no problems and the anterior immune is inappropriate. They should resume this. A resending medication and will pursue a prior authorization. (2) SARTHAK (obstructive sleep apnea): Comment: Moderate degree of sleep apnea with increased severity in REM sleep. The AHI was 22/hr, REM AHI was 42/hr and oxygen gina was 75%. Code(s): G47.33 - Obstructive sleep apnea (adult) (pediatric) Category: Medical (3) Tachycardia: Code(s): R00.0 - Tachycardia, unspecified Category: Medical (4) Diverticulum of left ventricle: Code(s): Q24.8 - Other specified congenital malformations of heart Category: Medical (5) Sciatica: Code(s): M54.30 - Sciatica, unspecified side Category: Medical Plan Tachycardia and ventricular diverticulum She is now on aspirin Cardiology also recommended she monitor her heart rate with AFib it Follow-up with Cardiology as recommended As above, I do not believe anterior mean is appropriate for her Weight loss is indicated though Dallin was helping-will get a prior authorization Sciatica Change work environment and try a standing desk to change from sitting to standing frequently Encouraged exercises and can refer her to physical therapy if needed A ice/heat and she does not use of topical Tylenol some NSAIDs sparingly Orders: Referrals Medical Weight Management Referral E66.01 - Morbid (severe) obesity due to excess calories, G47.33 - Obstructive sleep apnea (adult) (pediatric), Z68.43 - Body mass index [BMI] 50.0-59.9, adult Medications: Refilled semaglutide (weight loss) (Dallin) administer weeks 1 through 4 of therapy 0.25 mg (0.5 mL) subcut QWEEK 2 mL 2RF 28 days E66.01 - Morbid (severe) obesity due to excess calories, M25.561 - Pain in right knee, M25.562 - Pain in left knee, Z68.43 - Body mass index [BMI] 50.0-59.9, adult
[2024-12-18 08:52] VITALS: BP 142/88; PULSE 97; O2SAT 97; BMI 57.2
[2024-12-18 09:23] VITALS: BP 126/84
== END 2024-12-18 09:25 | disposition home or self-care (01) ==
LOC: HO.HMCFM 08:47
PROVIDERS: PCP Family Medicine; Visit Provider Family Medicine
DX: E66.01 Morbid (severe) obesity due to excess calories (principal); Z68.43 Body mass index [BMI] 50.0-59.9, adult; G47.33 Obstructive sleep apnea (adult) (pediatric); R00.0 Tachycardia, unspecified; Q24.8 Other specified congenital malformations of heart; M54.30 Sciatica, unspecified side

== ENCOUNTER → 2024-12-18 08:46 | Outpatient (BNVA) | payer OTHER, SELFPAY | PROVIDERS: PCP Family Medicine; Visit Provider Family Medicine | DX: E66.01 Morbid (severe) obesity due to excess calories (principal); G47.33 Obstructive sleep apnea (adult) (pediatric); R00.0 Tachycardia, unspecified; Q24.8 Other specified congenital malformations of heart; M54.30 Sciatica, unspecified side; Z68.43 Body mass index [BMI] 50.0-59.9, adult | CPT/HCPCS: 96127 ==

== ENCOUNTER 2025-01-07 08:08 | Outpatient (REF) | payer OTHER, SELFPAY | END 2025-01-07 08:09 | disposition home or self-care (01) | LOC: HO.MAMMO 08:08 | PROVIDERS: Visit Provider Family Medicine | DX: Z12.31 Encounter for screening mammogram for malignant neoplasm of breast (principal) | CPT/HCPCS: 77063; 77067 ==

== ENCOUNTER → 2025-01-07 08:15 | Outpatient (BNV) | payer OTHER, SELFPAY | PROVIDERS: Visit Provider Internal Medicine | DX: Z12.31 Encounter for screening mammogram for malignant neoplasm of breast (principal) | CPT/HCPCS: 77063; 77067 ==

== ENCOUNTER 2025-01-13 09:02 | Outpatient (AMB) | payer OTHER, SELFPAY ==
[2025-01-13 09:01] VITALS: BP 142/82; PULSE 77; O2SAT 98; BMI 55.9
--- NOTE | 2025-01-13 09:01 | A.OFFVIS_ITS ---
Vital Signs 01/13/25 09:01 Height 5 ft 7 in Weight 357 lb BMI 55.9 BP 142/82 H Blood Pressure Location Lt brachial Position Sitting Pulse 77 Pulse Source Pulse Oximeter Pulse Oximetry (%) 98 Oxygen Delivery Method Room Air Intake Visit Reasons: 6 mo follow up [employer] Package Symbol Stamper Required: No Accompanied by: Self / Same As Patient Allergies latex Allergy (Severe, Verified 01/13/25 09:02) Rash amoxicillin Allergy (Intermediate, Verified 01/13/25 09:02) rash benzonatate (Tessalon Perles) Allergy (Intermediate, Verified 01/13/25 09:02) Swelling Sulfa (Sulfonamide Antibiotics) Allergy (Intermediate, Verified 01/13/25 09:02) rash tetracycline Allergy (Intermediate, Verified 01/13/25 09:02) rash HPI Comments Details: 59 year old female with h/o Asthma presents for a follow up of Sleep Apnea. SARTHAK Compliance Report Oct 2024- Dec 2024 Total Avg use is 72% and daily use > 4 hours is 64/71 days. press 5-20cm H20 leaks vary 9.8cmH20 AHI is 0.8 She cleans her mask daily, changes out filters, fills reservoir with water. She has allergies and has been hive free for two years with Xolair. She is sleeping better now with the CPAP, she goes to bed at 12:30 and gets up at 6:45am, goes to the bathroom couple of times per night. She denies headaches, feeling sluggish, brain fog and memory difficulties. She is constantly fatigued, because she is working very long hours at [employer], she is trying to be mindful of work life balance. She is meticulously detail oriented and tends to want to fix all the problems and know the why . When she does not use the cpap machine she has dry mouth, and this causes her to drink more water which leads to more night time awakenings and daytime fatigue. She now uses a nose mask which is not the most comfortable fit however better then her other one.She still notices her teeth hurt due to sensitivity from cold air discussed adjusting the humidification and or temperature. Suggested trying mask liners, adjusting temperature of the air, however due to allergies she doesn't want to adjust temperature. She will try xylimelt tabs for enamel protection and perhaps sleep dentistry for a mouth guard in the near future. Her mood is stable, she would like to lose weight, she is mindful of her eating habits and caloric intake however not interested in Bariatric procedure. She has a Peripheral Nerve Stimulation device in the R. knee surgically implanted, was infected and now healing with scar tissue though walking is still difficult for her. [facility] Medical History Nonrheumatic aortic (valve) stenosis PAC (premature atrial contraction) Sleep apnea Allergic rhinitis Infected cyst of skin Asthma Cough Surgical History Hx of right knee surgery H/O knee surgery Hx of hysterectomy Hx of removal of cyst History of laparotomy Family History Father Prostate cancer Rectal cancer Mother CVD (cardiovascular disease) Myocardial infarction HTN (hypertension) Paternal Aunt History of ovarian cancer Maternal Uncle History of lung cancer Paternal Aunt History of breast cancer History of bone cancer Paternal Uncle No problems noted. Social History Household Members Other:: roommate Housing: Apartment Are you a primary lead care manager to a significant other at home: No Do you presently have visiting nurse or other home services: No Alcohol intake: current Alcohol intake frequency: does not drink Patient Tobacco Use Status: Never used Tobacco e-Cigarette/Vaping Use: Never Used Second Hand Smoke Exposure: No service: No Current occupational status: employed Current occupational exposures/hazards: No Cognitive needs: No Hearing needs: No Vision needs: No Physical Exam Vital Signs: Last Vital Signs Pulse 77 01/13/25 09:01 BP 142/82 H 01/13/25 09:01 Pulse Ox 98 01/13/25 09:01 Oxygen Delivery Method Room Air 01/13/25 09:01 BMI result Body Mass Index 55.9 Const General: cooperative, comfortable and no acute distress Nutritional Appearance: obese (BMI >55.9) Orientation/consciousness: patient oriented x3 HEENT Face and sinus: Yes normal facial exam and Yes face symmetric Mouth: tongue normal Eyes Pupils: Equal, round and reactive pupils present, Pupils normal by confrontation and Pupil accommodation reflex normal Neck Neck: Yes full ROM and Yes supple Resp Effort & Inspection: normal respiratory effort and able to speak in complete sentences Neuro General: patient oriented x3, Normal light touch and pain sensation and CN's II- XI intact bilaterally Cranial nerves: Yes CN's II-XII intact bilaterally, Yes Facial sensation intact/muscles of mastication intact, Yes Equal, round and reactive pupils present, Yes Normal facial strength present, Yes Midline tongue present, Yes Symmetric palate elevation present, Yes Ability to bilaterally rotate head present and Yes Ability to bilaterally elevate shoulders present Motor exam (neuro): 5/5 motor strength present throughout Deep tendon reflexes (DTR's): Right triceps reflex intensity grade: 2+, Left triceps reflex intensity grade: 2+, Rt Biceps (C5, C6): 2+, Left biceps reflex intensity grade: 2+, Right brachioradialis reflex intensity grade: 2+ and Left brachioradialis reflex intensity grade: 2+ Coordination: [id number] test normal Psych Appearance: grossly normal Speech and movement: Normal speech and movement present Thought process: Normal thought process present Insight: Good insight present (Psych) Results Reviewed Results Reviewed: SARTHAK Compliance Report Oct 2024- Dec 2024 Total Avg use is 72% and daily use > 4 hours is 64/71 days. press 5-20cm H20 leaks vary 9.8cmH20 AHI is 0.8 She cleans her mask daily, changes out filters, fills reservoir with water. Assessment & Plan Assessment & Plan (1) SARTHAK (obstructive sleep apnea): Comment: Moderate degree of sleep apnea with increased severity in REM sleep. The AHI was 22/hr, REM AHI was 42/hr and oxygen gina was 75%. Code(s): G47.33 - Obstructive sleep apnea (adult) (pediatric) Category: Medical (2) Morbid obesity with BMI of 50.0-59.9, adult: Code(s): E66.01 - Morbid (severe) obesity due to excess calories; Z68.43 - Body mass index [BMI] 50.0-59.9, adult Category: Medical (3) Right knee pain: Comment: Status post infrapatellar saphenous nerve stimulator implant Code(s): M25.561 - Pain in right knee Category: Medical Qualifiers: Chronicity: chronic Qualified Code(s): M25.561 - Pain in right knee; G89.29 - Other chronic pain (4) Difficulty sleeping: Code(s): G47.9 - Sleep disorder, unspecified Category: Medical (5) Fatigue due to sleep pattern disturbance: Code(s): R53.83 - Other fatigue; G47.9 - Sleep disorder, unspecified Category: Medical Plan SARTHAK Moderate continue use of CPAP daily and wash mask change filters as needed. Weight Management if patient is able to go for the nutritional counseling and dietary changes. Allergies continue Xolair and use Nasal Saline as needed. Teeth sensitivity may use Mi- Paste Tooth Paste or Xylitol Epic Toothpaste for Bone mineralization. and sleep denstistry for an oral appliance if she is amenable. F/U in 3 months. Patient Instructions: Sleep Hygiene provided: set a scheduled bedtime and wake time to help regulate the circadian rhythm and balance the release of pituitary hormones. Sleep in a dark room, temperatures below 68 degrees, and no devices n bed. Limit caffeinated products 6 hours prior to bed, and limit fluids 2-4 hours prior to bed. Gentle night yoga, diffusing essential oils, and playing soft music can be relaxing. Coding Level of Care Code Est Pt Level 4 (91899) Diagnoses SARTHAK (obstructive sleep apnea) G47.33 Morbid obesity with BMI of 50.0-59.9, adult E66.01; Z68.43 Chronic pain of right knee M25.561; G89.29 Chronicity: chronic Difficulty sleeping G47.9 Fatigue due to sleep pattern disturbance R53.83; G47.9
== END 2025-01-13 09:40 | disposition home or self-care (01) ==
LOC: HO.HSMC 09:02
PROVIDERS: PCP Family Medicine; Visit Provider Physician Assistant Medical
DX: G47.33 Obstructive sleep apnea (adult) (pediatric) (principal); E66.01 Morbid (severe) obesity due to excess calories; Z68.43 Body mass index [BMI] 50.0-59.9, adult; M25.561 Pain in right knee; G89.29 Other chronic pain; G47.9 Sleep disorder, unspecified; R53.83 Other fatigue
CPT/HCPCS: 99214

== ENCOUNTER 2025-03-19 08:06 | Outpatient (AMB) | payer OTHER, SELFPAY ==
--- NOTE | 2025-03-19 11:54 | A.OFFVIS_ITS ---
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 Allergies latex Allergy (Severe, Verified 03/19/25 11:54) Rash amoxicillin Allergy (Intermediate, Verified 03/19/25 11:54) rash benzonatate (Tessalon Perles) Allergy (Intermediate, Verified 03/19/25 11:54) Swelling Sulfa (Sulfonamide Antibiotics) Allergy (Intermediate, Verified 03/19/25 11:54) rash tetracycline Allergy (Intermediate, Verified 03/19/25 11:54) rash Medication List - Last Reconciled 03/19/25 by Paulino Ochoa MD albuterol sulfate 90 mcg/actuation (ProAir HFA) 2 puffs inhalation Q4-6H PRN 30 days [applecider gummies PO] aspirin 81 mg PO DAILY bupropion HCl SR 200 mg PO QAM 90 days celecoxib (Celebrex) 200 mg PO BID 30 days cetirizine (Zyrtec) 20 mg PO DAILY cholecalciferol (vitamin D3) 25 mcg PO DAILY 3 months MDD 25mcg clobetasol 0.05% 1 appl topical BID 2 weeks clotrimazole 1% 1 appl topical BID 2 weeks diphenhydramine HCl (Benadryl Allergy) 25 mg PO ONCE PRN epinephrine IM famotidine 20 mg PO DAILY ferrous sulfate 325 mg PO DAILY 3 months MDD 325mg fluticasone propionate 50 mcg/actuation 1 spray intranasal DAILY montelukast 10 mg PO DAILY multivitamin 1 tab PO DAILY omalizumab (Xolair) 150 mg subcut DIRECTED pantoprazole 40 mg PO DAILY 90 days semaglutide (weight loss) (Wegovy) 0.25 mg (0.5 mL) subcut QWEEK 28 days [turmeric gummies 2 gummies PO DAILY] HPI 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: Details: Start time: 11.51am, End time: 12.51pm ?I spent 55 minutes speaking with the patient on the phone plus an additional 5 minutes reviewing and updating records for a total of 60 minutes HPI Comments Details: Previous weight loss efforts: Webilly for 3 months (lost 20lbs) Wakes up: 6.30am, Sleeps: 9.30pm Breakfast: 9am (crackers, muffin) Lunch: 12pm (salad with chicken) Dinner: 7pm (chicken) Snacks: 4pm (crackers) Exercise: none Beverages: Coffee: 2-3/wk (1 cup/d black), Tea: 1/wk (1 cup/d plain), Soda: 1- 2/wk (Diet soda or [place] water), Juice: rarely, ETOH: 1/wk (light beer, soda with Vodka) PFS Medical History (Updated 03/19/25 @ 12:02 by Paulino Ochoa MD) DJD (degenerative joint disease) Anxiety Depression GERD (gastroesophageal reflux disease) Nonrheumatic aortic (valve) stenosis PAC (premature atrial contraction) Sleep apnea Allergic rhinitis Infected cyst of skin Asthma Cough Surgical History (Updated 02/10/25 @ 12:24 by Zoe Landry CMA) Hx of eye surgery Hx of plastic surgery Hx of colonoscopy Hx of bladder endoscopy Hx of right knee surgery H/O knee surgery Hx of hysterectomy Hx of removal of cyst History of laparotomy Family History Father Prostate cancer Rectal cancer Mother CVD (cardiovascular disease) Myocardial infarction HTN (hypertension) Paternal Aunt History of ovarian cancer Maternal Uncle History of lung cancer Paternal Aunt History of breast cancer History of bone cancer Paternal Uncle No problems noted. Social History Household Members Other:: roommate Housing: Apartment Are you a primary healthcare manager to a significant other at home: No Do you presently have visiting nurse or other home services: No Alcohol intake: current Alcohol intake frequency: does not drink Patient Tobacco Use Status: Never used Tobacco e-Cigarette/Vaping Use: Never Used Second Hand Smoke Exposure: No service: No Current occupational status: employed Current occupational exposures/hazards: No Cognitive needs: No Hearing needs: No Vision needs: No Telehealth Telehealth Telehealth Platform: Telephone Location of provider rendering services: practice address Location of patient: address on file Patient Identification confirmed using: Name, : Yes Telehealth method: voice only Patient verbally consented to treatment: Yes Patient verbally consented to billing insurance company: Yes Patient informed of any privacy concerns related to visit: Yes Minutes spent on Phone/Video with Pt.: 60 Assessment & Plan Assessment & Plan (1) Morbid obesity: Comment: She is aware of being very obese. Has not joined any weight management program. Wants did weight on her own. Code(s): E66.01 - Morbid (severe) obesity due to excess calories Category: Medical Plan: 1. Nutritional counseling. Start with one ORGAIN REBUILD protein shake (TWO scoops in 8oz low fat unsweetened almond milk each) at 7am-9am, 1 protein bar (Orgain or Fit Crunch protein bars, buy buy online or [facility]) at 10am-12pm, another ORGAIN protein shake (TWO scoops in 8oz low fat unsweetened almond milk each) at 1pm-3pm, another protein bar at 4pm-6pm, dinner at 7pm (12 forks of protein and 12 forks of salad/vegetables) AND another protein bar after dinner at 9pm-11pm. So you do 2 protein shakes, 3 protein bars and one meal per day. Meal to include lean meat (beef, fish, pork, turkey, chicken), or persian yogurt, or egg whites, or beans with a salad with olive oil and fruits (berries, pears, apples, kiwi). Avoid salt, breads, potatoes, rice, pasta, desserts. 3. Each shake would be drunk slowly, like coffee in a period of 2 hours. 4. Cut each bar in 4 pieces and eat each piece in 30min ?to make each bar last 2 hours. 5. I emphasized the importance of measuring accurately the food portion and measure it when serving the food in plate 6. The meal portions include 12 full-size forks of meat and 12 full-size forks of salad. You always eat the meat portion but you can replace up to 6 forks for salad/vegetables with rice, potatoes or pasta, or a fruit ?if you like. The less you do it the better weight loss will be. 7. One full-size fork is what it can be scooped on the fork without falling aside and not what can be bit with the fork. Use regular forks like those you find in a typical restaurant. 8.? Please buy the body composition scale we discussed and send me weight measurements as soon as possible and then once a week. Always include your diet and exercise plan. 9. The best choice would be to purchase a stationary bike at home that can track calories. If you get one, please start stationary bike at a resistance level of 4.0 Increase level by 1.0 every 3 min to a max level of 10.0. Stay at this level for 3 min and then return to level 4.0 and repeat same steps until 300 calories are burned. Goal is to burn 2000 calories per week on exercise 10. Goal is to lose at least 1.5-2lbs per week 11. Goal to lose at least 10%-20% of your weight before surgery, which is about 35-70lbs. Minimum weight goal: 313lbs 12. Please follow the diet plan exactly without any change. If you don't like something about the plan or you feel hungry you need to communicate with me so I can help you revise the plan. You should not change the plan yourself 13. My recommendation is that once we achieve a 10-20% weight loss we proceed with the sleeve gastrectomy so you can lose all the weight you need to lose which is over 130lbs. The surgery is done laparosocpically with small incisions and you stay 1 day at the hospital. The surgery does not replace the need to change your lifestlyle which is the cause of the obesity problem. The surgery provides the motivation to try again to change your lifestyle, it reduces the appetite and make the transition to a better lifestyle easier and doubles the amount of weight you would lose compared to doing the lifestyle change without the surgery. You will need to be on a liquid diet with protein shakes for 2 weeks before surgery to maximize weight loss and boost your nutritional status to recover better from surgery and also for the first two weeks after surgery to let the stomach heal before we introduce other foods. After the first 2 weeks we will introduce protein bars and soft foods like scrambled eggs, cottage cheese and yogurt and after the 6th week will introduce meat, fish and cooked vegetables in small amounts. Over time you should be able to eat everything in small amounts. Side effects like nausea, vomiting, heartburn or abdominal pain are not common in the practice unless you are not following in the practice. This operation requires lifetime commitment to following in our practice and communication with me. You will much less weight and experience side effects if you don?t communicate or not following in the practice. Complications are rare and in our practice is about 1/10 of the national average. However, you can develop bleeding that may require transfusion (hasn?t happened for year in the practice), you may from complications (we did not have any deaths in the practice) and infections. Infections are usually a result of breakdown in communication or not understanding or following directions correctly. They are difficult to treat, they can happen during the first 6 weeks, they may require to be in the hospital for weeks or even months, not being able to eat by mouth and you may have drains and surgeries to try and correct the issue. Other risks and complications include possible conversion to an open procedure, leaks, small bowel obstruction, blood clots, cardiac, or pulmonary complications, as fpc complications such as ulcers, insufficient weight loss and vitamin deficiencies. 14. . I ordered a medication to help you with the weight loss which is called Zepbound. My office will try to authorize it. Please let me know when you receive it so I can give you a meal and exercise plan. Common side effects include nausea, vomiting, constipation, diarrhea, abdominal pain. Please let me know if you develop any of these symptoms. Medications: New tirzepatide (weight loss) (Zepbound) for 4 weeks 2.5 mg (0.5 mL) subcut QWEEK 2 mL 0RF E66.01 - Morbid (severe) obesity due to excess calories, G47.33 - Obstructive sleep apnea (adult) (pediatric)
[2025-03-19 12:10] VITALS: BMI 54.6
== END 2025-03-19 12:52 | disposition home or self-care (01) ==
LOC: HO.HBS 08:06
PROVIDERS: PCP Family Medicine; Visit Provider Surgery
DX: E66.01 Morbid (severe) obesity due to excess calories (principal); Z68.43 Body mass index [BMI] 50.0-59.9, adult
CPT/HCPCS: 98011

== ENCOUNTER 2025-03-22 15:45 | Outpatient (AMB) | payer OTHER, SELFPAY ==
--- NOTE | 2025-03-22 15:48 | MHC.PC.OV ---
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 Is last menstrual period known: No Post menopausal: No Patient : No Allergies latex Allergy (Severe, Verified 03/22/25 15:52) Rash amoxicillin Allergy (Intermediate, Verified 03/22/25 15:52) rash benzonatate (Tessalon Perles) Allergy (Intermediate, Verified 03/22/25 15:52) Swelling Sulfa (Sulfonamide Antibiotics) Allergy (Intermediate, Verified 03/22/25 15:52) rash tetracycline Allergy (Intermediate, Verified 03/22/25 15:52) rash Tobacco use date assessed: 03/22/25 Dental Screening Dental Screen Date: 03/22/25 Did you have a dental visit in the last 12 months?: Yes Did you have a dental problem in the last 6 months where you did not have access to dental care?: No Was dental information given to patient?: Patient has dentist HPI fu chronic condtions HPI Details 60 y/o female presents to f/u chronic conditions. A1c today 5.0%. She is on Wegovy. Pt notes she has been watching what she eats and notes appetite has improved on medication. [facility] Medical History (Updated 03/19/25 @ 12:02 by Paulino Ochoa MD) DJD (degenerative joint disease) Anxiety Depression GERD (gastroesophageal reflux disease) Nonrheumatic aortic (valve) stenosis PAC (premature atrial contraction) Sleep apnea Allergic rhinitis Infected cyst of skin Asthma Cough Surgical History (Updated 02/10/25 @ 12:24 by Zoe Landry CMA) Hx of eye surgery Hx of plastic surgery Hx of colonoscopy Hx of bladder endoscopy Hx of right knee surgery H/O knee surgery Hx of hysterectomy Hx of removal of cyst History of laparotomy Family History Father Prostate cancer Rectal cancer Mother CVD (cardiovascular disease) Myocardial infarction HTN (hypertension) Paternal Aunt History of ovarian cancer Maternal Uncle History of lung cancer Paternal Aunt History of breast cancer History of bone cancer Paternal Uncle No problems noted. Social History Household Members Other:: roommate Housing: Apartment Are you a primary director career services to a significant other at home: No Do you presently have visiting nurse or other home services: No Alcohol intake: current Alcohol intake frequency: does not drink Patient Tobacco Use Status: Never used Tobacco e-Cigarette/Vaping Use: Never Used Second Hand Smoke Exposure: No Patient : No service: No Current occupational status: employed Current occupational exposures/hazards: No Cognitive needs: No Hearing needs: No Vision needs: No Questionnaire Thrive Questionnaire Date Thrive assessed: 10/08/24 I am a: Patient What is your living situation today?: I have a steady place to live Within the past 12 months, did the food you bought not last and you didn't have the money to get more?: Never true Within the past 12 months, did you worry whether your food would run out before you got money to buy more?: Never true Do you have trouble paying for medicines?: No Do you have trouble getting transportation to medical appointments?: No Do you have trouble paying your heating and electricity bill?: No Do you have trouble taking care of your child, family member or friend?: No Do you have trouble with day-to-day activities such as bathing, preparing meals, shopping, managing finances, etc.?: No Are you currently unemployed and looking for a job?: No Are you interested in more education?: No Currently or been in a relationship where the following occur: I choose not to answer THRIVE Score: 0 RHYS-7 AMB Questionnaire RHYS-7 Date RHYS - 7 assessed: 12/18/24 Source: Developed by Drs. Jimmy Saini, Janette Andino, Mickey Chiu and colleagues, with an educational dilcia from [employer]. Review of Systems Const Denies chills, Denies fatigue, Denies fever(s), Denies headache(s) and Denies weakness ENT Denies dizziness and Denies headache(s) Card Denies dyspnea Resp Denies cough, Denies dyspnea, Denies wheezing and Denies other (shortness of breath) Musc Denies numbness and Denies tingling Neuro Denies dizziness, Denies headache(s), Denies numbness, Denies tingling and Denies weakness Psych Denies anxiety and Denies depression Endo Denies fatigue Aller/Immun Denies wheezing Physical exam (Primary Care) Vital Signs: Last Vital Signs Temp 97.3 F 03/22/25 15:54 Pulse 88 03/22/25 15:54 Resp 16 03/22/25 15:54 BP 126/80 03/22/25 15:54 Pulse Ox 97 03/22/25 15:54 Oxygen Delivery Method Room Air 03/22/25 15:54 BMI result Body Mass Index 54.1 Tobacco/Smoking Status: Tobacco use Status Tobacco use date assessed 03/22/25 03/22/25 16:01 Patient Tobacco Use Status Never used Tobacco 03/22/25 15:51 e-Cigarette/Vaping Use Never Used 03/22/25 15:51 Thrive Assessment: Date of Thrive Assessment Date Thrive assessed 10/08/24 03/22/25 15:51 Currently or been in a relationship where the following occur: I choose not to answer Const General: well developed; No acute distress Nutritional Appearance: well nourished and obese morbidly obese Orientation/consciousness: patient oriented x3 HENMT Head: Yes normocephalic and Yes atraumatic Eyes General: appearance normal, both eyes and all related structures Pupils: Equal, round and reactive pupils present EOM: EOMs intact bilaterally Resp Effort & Inspection: normal respiratory effort Auscultation: clear to auscultation bilaterally Cardio Rate: regular rate Rhythm: regular rhythm Heart sounds: S1 normal heart sound present, S2 normal heart sound present, no gallops, no murmurs and no rubs Neuro General: patient oriented x3 and gait normal Cranial nerves: Yes Equal, round and reactive pupils present Psych Affect: normal affect Results AMB Hemoglobin A1c AMB Hemoglobin A1c 5.0 % Last Edit by ROBERT Hicks on 03/22/25 16:08 Results Reviewed Results Reviewed: Laboratory Last Values Hgb A1c (Clinic) 5.0 % (4.0-6.0) 03/22/25 16:07 Coding Level of Care Code Est Pt Level 4 (41833) Diagnoses Elevated fasting blood sugar R73.01 Morbid obesity with BMI of 50.0-59.9, adult E66.01; Z68.43 Back pain M54.9 Sciatica M54.30 Assessment & Plan Assessment & Plan (1) Elevated fasting blood sugar: Code(s): R73.01 - Impaired fasting glucose Category: Medical Plan: A1c 5.0% and she is on Ozempic. 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 (2) Morbid obesity with BMI of 50.0-59.9, adult: Code(s): E66.01 - Morbid (severe) obesity due to excess calories; Z68.43 - Body mass index [BMI] 50.0-59.9, adult Category: Medical Plan: Patient has lost about 20-22 lb over the last 3 months Congratulated patient and encouraged her to keep working at this Followed by weight management Encouraged her to stick with program (3) Back pain: Code(s): M54.9 - Dorsalgia, unspecified Category: Medical Plan: Some ongoing sciatica symptoms on the left Start physical therapy (4) Sciatica: Code(s): M54.30 - Sciatica, unspecified side Category: Medical Plan: As above, start physical therapy Orders: Orders AMB Hemoglobin A1c Today R73.01 - Impaired fasting glucose PT Evaluation and Treatment Today M54.30 - Sciatica, unspecified side Hemoglobin A1c Today E66.01 - Morbid (severe) obesity due to excess calories, R73.01 - Impaired fasting glucose, Z68.43 - Body mass index [BMI] 50.0-59.9, adult Comprehensive [place]. Panel Fast Today E66.01 - Morbid (severe) obesity due to excess calories, Z00.00 - Encounter for general adult medical examination without abnormal findings, Z68.43 - Body mass index [BMI] 50.0-59.9, adult
[2025-03-22 15:54] VITALS: BP 126/80; PULSE 88; RESP 16; TEMP 36.3; O2SAT 97; BMI 54.1
== END 2025-03-22 17:05 ==
LOC: HO.HMCFM 15:45
PROVIDERS: PCP Family Medicine; Visit Provider Family Medicine
DX: R73.01 Impaired fasting glucose (principal); E66.01 Morbid (severe) obesity due to excess calories; Z68.43 Body mass index [BMI] 50.0-59.9, adult; M54.9 Dorsalgia, unspecified; M54.30 Sciatica, unspecified side

== ENCOUNTER → 2025-03-22 15:45 | Outpatient (BNVA) | payer OTHER, SELFPAY | PROVIDERS: PCP Family Medicine; Visit Provider Family Medicine | DX: R73.01 Impaired fasting glucose (principal) | CPT/HCPCS: 83036 ==